=== PATIENT | female | born 1960 | race Caucasian/White ===

== ENCOUNTER 2017-10-30 23:00 | Emergency (ER) | payer MEDICAID ==
[~2017-10-30] VITALS: Ht 157.5 cm; Wt 62.6 kg
[~2017-10-30 23:00] MED LIST: AMITR PO; GABA-339 PO; HYDR12.527; LEVO75TA6 PO; PANT40TA2 PO; PRO10T; SUCR1SUS10 PO; TAMO20TA5 OR; TOPI50TA53 PO
[2017-10-30 23:24] VITALS: BP 151/99
== END 2017-10-31 07:05 | disposition left against medical advice (07) ==
LOC: ER 23:00
DX: K64.9 Unspecified hemorrhoids (principal); Z53.21 Procedure and treatment not carried out due to patient leaving prior to being seen by health care provider

== ENCOUNTER 2018-01-17 10:10 | Emergency (ER) | payer MEDICAID ==
[~2018-01-17] VITALS: Ht 157.5 cm; Wt 61.2 kg
[2018-01-17 11:21] VITALS: BP 138/87
[2018-01-17] MEDS ORDERED: KETOROLAC TROMETH 30 MG/ML 1ML VIAL IM ONE (11:30)
== END 2018-01-17 13:08 | disposition home or self-care (01) ==
LOC: ER 10:10
DX: S20.211A Contusion of right front wall of thorax, initial encounter (principal); E07.9 Disorder of thyroid, unspecified; F17.210 Nicotine dependence, cigarettes, uncomplicated; Z90.710 Acquired absence of both cervix and uterus; Z90.49 Acquired absence of other specified parts of digestive tract; Z88.1 Allergy status to other antibiotic agents; Z88.8 Allergy status to other drugs, medicaments and biological substances; Z98.51 Tubal ligation status; Z79.899 Other long term (current) drug therapy; W06.XXXA Fall from bed, initial encounter; Y93.89 Activity, other specified; Y99.8 Other external cause status; Y92.89 Other specified places as the place of occurrence of the external cause
CPT/HCPCS: 71101; 96372; 99284; J1885

== ENCOUNTER 2018-02-07 03:55 | Emergency (ER) | payer MEDICAID ==
[~2018-02-07] VITALS: Ht 165.1 cm; Wt 65.8 kg
[2018-02-07 06:38] LABS: Basophils # (auto) 0 uL; Basophils % (auto) 0.5 % (0.0-2.0); Eosinophils # (auto) 0.3 uL; Eosinophils % (auto) 3.4 % (0.0-7.0); Hemoglobin 13.9 g/dL (12.2-16.2); Lymphocytes # (auto) 2.3 uL; Lymphocytes % (auto) 30.4 % (10.0-50.0); Mean Corpuscular Hemoglobin 30.4 pg (28.0-32.0); Mean Corpuscular Hgb Conc. 33.1 g/dL (32.0-36.0); Mean Corpuscular Volume 91.7 fL (80.0-100.0); Monocytes # (auto) 0.5 uL; Monocytes % (auto) 7.2 % (0.0-12.0); Neutrophils # (auto) 4.4 uL; Neutrophils % (auto) 58.5 % (37.0-80.0); Nucleated Red Blood Cells % 0.1 %; Platelet Count (auto) 219 10^3/uL (140-450); Red Blood Cells 4.58 10^6/uL (4.0-5.20); Red Cell Distribution Width 14.2 % (11.8-14.3); White Blood Cell 7.5 10^3/uL (4.4-10.8)
[2018-02-07 06:51] LABS: Albumin 3.7 g/dL (3.4-5.0); BUN/Creatinine Ratio 36.3; Bilirubin, Total 0.2 mg/dL (0.2-1.0); Calcium 9.1 mg/dL (8.5-10.1); Potassium 3.8 mmol/L (3.5-5.1); Total Protein 7.4 g/dL (6.4-8.2)
[2018-02-07] MEDS ORDERED: ALUM & MAG HYDROX-SIMETH LIQ(MAALOX) 30 ML PO ONE (07:15)
[2018-02-07] MEDS ORDERED: LIDOCAINE VISCOUS 2% 15ML UD PO ONE (07:15)
[2018-02-07] MEDS ORDERED: DONNATAL 5ml ORAL Elix (BELLADONNA ALK-PHENOBARB) PO ONE (07:15)
[2018-02-07 07:42] VITALS: BP 134/69
[2018-02-07 07:59] LABS: Urine Bacteria FEW /hpf (None Seen); Urine Blood Negative /uL (Negative); Urine Mucus FEW (None Seen); Urine Specific Gravity 1.019 (1.001-1.035); Urine WBC 6 /hpf (0 - 5)
== END 2018-02-07 08:16 | disposition home or self-care (01) ==
LOC: EDBD 03:55 → ER 03:55
DX: K44.9 Diaphragmatic hernia without obstruction or gangrene (principal); Z88.2 Allergy status to sulfonamides
CPT/HCPCS: 36415; 74176; 80053; 81001; 82150; 83690; 85025; 93005

== ENCOUNTER 2021-02-24 09:31 | Inpatient (IN) | payer MEDICAID ==
[~2021-02-24] VITALS: Ht 157.5 cm; Wt 62.7 kg
[~2021-02-24 09:31] MED LIST changes: +AMIT1TAB PO; -AMITR PO; -HYDR12.527; +HYDR12.55; -PRO10T; +PROC10TA2; -TAMO20TA5 OR; +TAMO20TA9 OR
[2021-02-24] MEDS ORDERED: SODIUM CHLORIDE 0.9% 1,000 ML IV ONE ×2 (10:00)
[2021-02-24] MEDS ORDERED: PROCHLORPERAZINE EDISYLATE 5 MG/ML 2ML VIAL IV ONE (10:00)
[2021-02-24] MEDS ORDERED: ONDANSETRON HCL 4 MG/2 ML VIAL ONE (11:01)
[2021-02-24] MEDS ORDERED: KETOROLAC TROMETH 30 MG/ML 1ML VIAL ONE (11:01)
[2021-02-24 11:05] LABS: Basophils # (auto) 0 10 ^3/uL (0-0.2); Basophils % (auto) 0.3 % (0.0-2.0); Eosinophils # (auto) 0.1 10 ^3/uL (0-0.8); Eosinophils % (auto) 1.4 % (0.0-7.0); Hematocrit 41.3 % (36.0-46.0); Lymphocytes # (auto) 1.2 10 ^3/uL (0.4-5.4); Lymphocytes % (auto) 17.7 % (10.0-50.0); Mean Corpuscular Volume 94.1 fL (80.0-100.0); Monocytes # (auto) 0.5 10 ^3/uL (0-1.3); Monocytes % (auto) 7.5 % (0.0-12.0); Neutrophils % (auto) 73.1 % (37.0-80.0); Red Blood Cells 4.39 10^6/uL (4.0-5.20); White Blood Cell 6.9 10^3/uL (4.4-10.8)
[2021-02-24] MEDS ORDERED: KETOROLAC TROMETH 30 MG/ML 1ML VIAL IV ONE (11:15)
[2021-02-24] MEDS ORDERED: ONDANSETRON HCL 4 MG/2 ML VIAL IV ONE ×2 (11:15→13:45)
[2021-02-24 11:17] LABS: Albumin 3.9 g/dL (3.4-5.0); Anion Gap 10 (5-15); Blood Urea Nitrogen 28 mg/dL (7-18); Calcium 8.7 mg/dL (8.5-10.1); Carbon Dioxide 22 mmol/L (21-32); Chloride 110 mmol/L (98-107); Glucose 84 mg/dL (74-106); Potassium 3.3 mmol/L (3.5-5.1); Sodium 142 mmol/L (136-145)
[2021-02-24 11:23] LABS: Alanine Aminotransferase 22 U/L (13-56); Alkaline Phosphatase 54 U/L (45-117); Aspartate Aminotransferase 20 U/L (15-37); BUN/Creatinine Ratio 32.9; Bilirubin, Total 0.3 mg/dL (0.2-1.0); GFR African American 88 mL/min; GFR Non-African American 73 mL/min; Total Protein 7.1 g/dL (6.4-8.2)
[2021-02-24] MEDS ORDERED: POTASSIUM CHL 20MEQ/100ML 100 ML IV ONE (13:45)
[2021-02-24] MEDS ORDERED: metroNIDAZOLE 500MG/100ML 100 ML IV ONE (13:45)
[2021-02-24] MEDS ORDERED: cefTRIAXone 1GM/50ML D5W 50 ML IV ONE (13:45)
[2021-02-24] MEDS ORDERED: MORPHINE SULFATE 4 MG/ML SYR/VIAL IV ONE (13:45)
[2021-02-24] MEDS ORDERED: ONDANSETRON HCL 4 MG/2 ML VIAL IV PRN (14:00)
[2021-02-24] MEDS ORDERED: MORPHINE SULF INJ 2 MG/ML SYRINGE 1ML IV PRN (14:00)
[2021-02-24] MEDS ORDERED: NITROGLYCERIN 0.4 MG SL TAB SL PRN (14:00)
[2021-02-24] MEDS ORDERED: metroNIDAZOLE 500MG/100ML 100 ML IV SCH (14:00)
[2021-02-24] MEDS: SOD CHL 0.9%/ KCL 20MEQ 1,000 ML IV SCH (15:05)
[2021-02-24 15:39] LABS: Urine Bacteria NONE SEEN /hpf (None Seen); Urine Blood Negative /uL (Negative); Urine Budding Yeast FEW /hpf (None Seen); Urine Mucus FEW (None Seen); Urine Specific Gravity 1.019 (1.001-1.035); Urine WBC 5 /hpf (0 - 5)
[2021-02-24 15:50] LABS: Alcohol, Urine < 3.0 mg/dL (0-10); Amphetamine Screen, Urine NEGATIVE (NEGATIVE); Barbiturate Scree,Urine NEGATIVE (NEGATIVE); Benzodiazephine Screen, Urine NEGATIVE (NEGATIVE); Cannabinoid Screen, Urine NEGATIVE (NEGATIVE); Cocaine Screen, Urine NEGATIVE (NEGATIVE); Opiate Scree,Urine POSITIVE (NEGATIVE)
[2021-02-24 15:57] LABS: Phencyclidine Screen, Urine NEGATIVE (NEGATIVE)
[2021-02-24] MEDS: MORPHINE SULF INJ 2 MG/ML SYRINGE 1ML IV PRN ×2 (17:36→18:56)
[2021-02-24] MEDS: ONDANSETRON HCL 4 MG/2 ML VIAL IV PRN (19:38)
[2021-02-24 22:00] VITALS: BP 134/72
[2021-02-24 22:10] VITALS: BP 134/72
[2021-02-24] MEDS ORDERED: SIMV-13 PO (22:34)
[2021-02-24] MEDS ORDERED: ROPI0.254 PO (22:34)
[2021-02-24] MEDS ORDERED: METH2.5T PO (22:34)
[2021-02-24] MEDS ORDERED: ALEN70TA74 PO (22:34)
[2021-02-24] MEDS ORDERED: FOLI1TAB6 PO (22:34)
[2021-02-24] MEDS: PANTOPRAZOLE 40 MG/10 ML VIAL INJ IV SCH (22:34)
[2021-02-24] MEDS ORDERED: CHOL20007 OR (22:34)
[2021-02-24] MEDS ORDERED: TIZA4CAP PO (22:34)
[2021-02-24] MEDS ORDERED: DICY10CA PO (22:34)
[2021-02-24] MEDS ORDERED: PERCOT PO (22:34)
[2021-02-24] MEDS ORDERED: TRAZ100T3 PO (22:34)
[2021-02-24] MEDS ORDERED: TOPI25TA84 PO (22:34)
[2021-02-24] MEDS ORDERED: RABE20TA19 PO (22:34)
[2021-02-24] MEDS ORDERED: BUPR100T14 PO (22:34)
[2021-02-24] MEDS ORDERED: GABA100C9 PO (22:34)
[2021-02-24] MEDS ORDERED: ANAS1TAB7 PO (22:34)
[2021-02-24] MEDS: metroNIDAZOLE 500MG/100ML 100 ML IV SCH (22:35)
[2021-02-24] MEDS: TOPIRAMATE 25 MG TAB PO SCH (22:35)
[2021-02-25] MEDS: MORPHINE SULF INJ 2 MG/ML SYRINGE 1ML IV PRN (00:05)
[2021-02-25] MEDS: ONDANSETRON HCL 4 MG/2 ML VIAL IV PRN (02:55)
[2021-02-25 05:00] VITALS: BP 99/61
[2021-02-25] MEDS: metroNIDAZOLE 500MG/100ML 100 ML IV SCH ×3 (06:43→21:09)
[2021-02-25] MEDS: LEVOTHYROXINE SODIUM 50 MCG TAB PO SCH (06:44)
[2021-02-25 09:00] VITALS: BP 108/60
[2021-02-25] MEDS: PANTOPRAZOLE 40 MG/10 ML VIAL INJ IV SCH ×2 (09:08→21:10)
[2021-02-25] MEDS: cefTRIAXone 1GM/50ML D5W 50 ML IV SCH (09:08)
[2021-02-25] MEDS: AMITRIPTYLINE HCL 10 MG TAB PO SCH (09:09)
[2021-02-25] MEDS: TOPIRAMATE 25 MG TAB PO SCH ×2 (09:09→21:11)
[2021-02-25] MEDS: SOD CHL 0.9%/ KCL 20MEQ 1,000 ML IV SCH ×3 (10:00→21:00)
[2021-02-25 13:00] VITALS: BP 103/56
[2021-02-25] MEDS ORDERED: MORPHINE SULF INJ 2 MG/ML SYRINGE 1ML IV PRN (13:00)
[2021-02-25] MEDS: OXYCODONE W/ ACETAMINOPHEN 5/325MG TABLET PO PRN ×2 (14:38→21:16)
[2021-02-25 16:57] VITALS: BP 110/61
[2021-02-25 22:00] VITALS: BP 120/73
[2021-02-26 05:00] VITALS: BP 126/69
[2021-02-26] MEDS: metroNIDAZOLE 500MG/100ML 100 ML IV SCH ×3 (05:42→22:31)
[2021-02-26] MEDS: SOD CHL 0.9%/ KCL 20MEQ 1,000 ML IV SCH ×2 (06:00→16:00)
[2021-02-26] MEDS: LEVOTHYROXINE SODIUM 50 MCG TAB PO SCH (06:20)
[2021-02-26 09:00] VITALS: BP 116/62
[2021-02-26] MEDS: TOPIRAMATE 25 MG TAB PO SCH ×2 (09:59→22:32)
[2021-02-26] MEDS: AMITRIPTYLINE HCL 10 MG TAB PO SCH (09:59)
[2021-02-26 10:21] LABS: Basophils # (auto) 0 10 ^3/uL (0-0.2); Basophils % (auto) 0.9 % (0.0-2.0); Eosinophils # (auto) 0.2 10 ^3/uL (0-0.8); Eosinophils % (auto) 3.3 % (0.0-7.0); Hematocrit 40.1 % (36.0-46.0); Hemoglobin 13.6 g/dL (12.2-16.2); Lymphocytes # (auto) 1.4 10 ^3/uL (0.4-5.4); Lymphocytes % (auto) 28.8 % (10.0-50.0); Mean Corpuscular Hemoglobin 32.1 pg (28.0-32.0); Mean Corpuscular Hgb Conc. 33.8 g/dL (32.0-36.0); Mean Corpuscular Volume 94.9 fL (80.0-100.0); Monocytes # (auto) 0.5 10 ^3/uL (0-1.3); Neutrophils # (auto) 2.8 10 ^3/uL (1.6-8.6); Nucleated Red Blood Cells % 0.1 %; Red Blood Cells 4.23 10^6/uL (4.0-5.20); Red Cell Distribution Width 14.8 % (11.8-14.3); White Blood Cell 4.9 10^3/uL (4.4-10.8)
[2021-02-26 10:39] LABS: Calcium 8.4 mg/dL (8.5-10.1); Magnesium 2.2 mg/dL (1.6-2.6); Potassium 3.6 mmol/L (3.5-5.1)
[2021-02-26 13:00] VITALS: BP 136/70
[2021-02-26] MEDS: PANTOPRAZOLE 40 MG/10 ML VIAL INJ IV SCH ×2 (15:00→22:31)
[2021-02-26] MEDS: cefTRIAXone 1GM/50ML D5W 50 ML IV SCH (15:01)
[2021-02-26] MEDS: levoFLOXacin 500MG 100 ML IV SCH (16:12)
[2021-02-26 17:00] VITALS: BP 143/63
[2021-02-26] MEDS ORDERED: ROPI0.5T18 PO (20:59)
[2021-02-26] MEDS ORDERED: ALENDRONATE SODIUM 10 MG TAB PO SCH (21:15)
[2021-02-26] MEDS ORDERED: METHOTREXATE 2.5 MG TAB PO SCH (21:15)
[2021-02-26] MEDS ORDERED: PROCHLORPERAZINE MALEATE 10 MG TAB PO PRN (21:30)
[2021-02-26] MEDS ORDERED: GABAPENTIN 100 MG CAP PO SCH (22:00)
[2021-02-26 22:19] VITALS: BP 140/73
[2021-02-26] MEDS: DOCUSATE SOD 100 MG CAP PO SCH (22:31)
[2021-02-26] MEDS: SUCRALFATE 1 GM/10 ML ORAL SUSP PO SCH (22:31)
[2021-02-26] MEDS: traZODone HCL 50 MG TAB PO SCH (22:34)
[2021-02-26] MEDS: GABAPENTIN 300 MG CAP PO SCH (22:35)
[2021-02-26] MEDS ORDERED: DICYCLOMINE HCL 10 MG CAP PO PRN (22:45)
[2021-02-27] MEDS: SOD CHL 0.9%/ KCL 20MEQ 1,000 ML IV SCH ×2 (02:01→12:00)
[2021-02-27] MEDS ORDERED: METH2.5T PO (02:13)
[2021-02-27] MEDS ORDERED: ALEN70TA74 PO (02:13)
[2021-02-27 05:30] VITALS: BP 130/58
[2021-02-27] MEDS: metroNIDAZOLE 500MG/100ML 100 ML IV SCH ×2 (06:19→14:00)
[2021-02-27] MEDS: SUCRALFATE 1 GM/10 ML ORAL SUSP PO SCH ×4 (06:19→22:00)
[2021-02-27] MEDS: LEVOTHYROXINE SODIUM 50 MCG TAB PO SCH (06:20)
[2021-02-27 09:03] VITALS: BP 120/66
[2021-02-27] MEDS: AMITRIPTYLINE HCL 10 MG TAB PO SCH (10:00)
[2021-02-27] MEDS ORDERED: ZANAFLEX PO SCH (10:00)
[2021-02-27] MEDS ORDERED: PANTOPRAZOLE 40 MG TAB PO SCH (10:00)
[2021-02-27] MEDS ORDERED: ANASTROZOLE 1 MG PO SCH (10:00)
[2021-02-27] MEDS ORDERED: HCTZ 25 MG TAB PO SCH (10:00)
[2021-02-27] MEDS: DOCUSATE SOD 100 MG CAP PO SCH ×2 (10:00→22:34)
[2021-02-27] MEDS ORDERED: buPROPion HCL 75 MG TAB PO SCH (10:00)
[2021-02-27] MEDS ORDERED: CHOLECALCIFEROL (VITD3) 2,000 UNIT CAP/TAB PO SCH (10:00)
[2021-02-27] MEDS ORDERED: ROPINIROLE 0.5 MG PO SCH (10:00)
[2021-02-27] MEDS: traZODone HCL 50 MG TAB PO SCH (10:00)
[2021-02-27] MEDS ORDERED: FOLIC ACID 1 MG TAB PO SCH (10:00)
[2021-02-27] MEDS: TOPIRAMATE 25 MG TAB PO SCH (10:02)
[2021-02-27] MEDS: GABAPENTIN 300 MG CAP PO SCH ×2 (10:12→22:35)
[2021-02-27] MEDS: levoFLOXacin 500MG 100 ML IV SCH (10:13)
[2021-02-27 13:00] VITALS: BP 130/74
[2021-02-27 13:23] LABS: Basophils # (auto) 0 10 ^3/uL (0-0.2); Basophils % (auto) 0.4 % (0.0-2.0); Eosinophils # (auto) 0.1 10 ^3/uL (0-0.8); Eosinophils % (auto) 2.3 % (0.0-7.0); Hematocrit 40.5 % (36.0-46.0); Hemoglobin 14.1 g/dL (12.2-16.2); Lymphocytes # (auto) 1.9 10 ^3/uL (0.4-5.4); Lymphocytes % (auto) 31.5 % (10.0-50.0); Mean Corpuscular Hemoglobin 32.5 pg (28.0-32.0); Mean Corpuscular Hgb Conc. 34.9 g/dL (32.0-36.0); Mean Corpuscular Volume 93.2 fL (80.0-100.0); Monocytes # (auto) 0.7 10 ^3/uL (0-1.3); Monocytes % (auto) 10.9 % (0.0-12.0); Neutrophils # (auto) 3.4 10 ^3/uL (1.6-8.6); Neutrophils % (auto) 54.9 % (37.0-80.0); Nucleated Red Blood Cells % 0.1 %; Red Blood Cells 4.35 10^6/uL (4.0-5.20); Red Cell Distribution Width 14.9 % (11.8-14.3); White Blood Cell 6.1 10^3/uL (4.4-10.8)
[2021-02-27 13:39] LABS: BUN/Creatinine Ratio 7.9; Potassium 3.1 mmol/L (3.5-5.1)
[2021-02-27 17:38] VITALS: BP 123/71
[2021-02-27 21:48] VITALS: BP 129/68
[2021-02-27] MEDS ORDERED: ATORVASTATIN 20 MG TAB PO SCH (22:00)
[2021-03-01] MEDS ORDERED: ALENDRONATE SODIUM 10 MG TAB PO SCH (07:00)
[2021-03-03] MEDS ORDERED: METHOTREXATE 2.5 MG TAB PO SCH (10:00)
== END 2021-02-27 22:10 | disposition home or self-care (01) | DRG 249 ==
LOC: EDBD 09:31 → EDUNIT# 09:31 → ER 09:31 → TELE 14:06 → TELE-WESTW 20:29
PROVIDERS: ADMIT Nurse Practitioner Acute Care; ATTEND Internal Medicine
DX: K52.9 Noninfective gastroenteritis and colitis, unspecified (principal); G62.9 Polyneuropathy, unspecified; E03.9 Hypothyroidism, unspecified; E87.6 Hypokalemia; K21.9 Gastro-esophageal reflux disease without esophagitis; M79.7 Fibromyalgia; F17.210 Nicotine dependence, cigarettes, uncomplicated; Z79.899 Other long term (current) drug therapy; Z82.49 Family history of ischemic heart disease and other diseases of the circulatory system; Z85.3 Personal history of malignant neoplasm of breast; Z90.710 Acquired absence of both cervix and uterus; Z92.21 Personal history of antineoplastic chemotherapy; Z92.3 Personal history of irradiation; F41.9 Anxiety disorder, unspecified; N39.0 Urinary tract infection, site not specified; Z20.822 Contact with and (suspected) exposure to COVID-19; Z88.2 Allergy status to sulfonamides; Z88.8 Allergy status to other drugs, medicaments and biological substances
CPT/HCPCS: 36415; 74176; 80048; 80053; 80307; 81001; 83605; 83735; 84443; 84484; 85025; 85049; 87040; 87426; 87493; 93005; 93306; 96361; 96374; 96375; C9113; G0378; J0696; J1885; J1956; J2405; J3480; J3490

== ENCOUNTER 2021-03-05 13:12 | Inpatient (IN) | payer MEDICAID ==
[~2021-03-05] VITALS: Ht 165.1 cm; Wt 63.7 kg
[~2021-03-05 13:12] MED LIST changes: +ALEN70TA74 PO; +ANAS1TAB7 PO; +BUPR100T14 PO; +CHOL20007 OR; +DICY10CA PO; +FOLI1TAB6 PO; -GABA-339 PO; +GABA100C9 PO; +METH2.5T PO; +PERCOT PO; +RABE20TA19 PO; +ROPI0.5T18 PO; +SIMV-13 PO; -TAMO20TA9 OR; +TIZA4CAP PO; +TOPI25TA84 PO; +TRAZ100T3 PO
[2021-03-05] MEDS ORDERED: SODIUM CHLORIDE 0.9% 1,000 ML IV ONE ×3 (13:30→16:00)
[2021-03-05] MEDS ORDERED: cefTRIAXone 1GM/50ML D5W 50 ML IV ONE (13:30)
[2021-03-05] MEDS ORDERED: metroNIDAZOLE 500MG/100ML 100 ML IV ONE (13:30)
[2021-03-05 15:35] LABS: Urine Bacteria NONE SEEN /hpf (None Seen); Urine Blood Negative /uL (Negative); Urine Mucus FEW (None Seen); Urine Specific Gravity 1.018 (1.001-1.035); Urine WBC 2 /hpf (0 - 5)
[2021-03-05] MEDS ORDERED: ONDANSETRON HCL 4 MG/2 ML VIAL IV PRN ×2 (16:00→22:45)
[2021-03-05] MEDS ORDERED: NITROGLYCERIN 0.4 MG SL TAB SL PRN ×2 (16:00→22:45)
[2021-03-05] MEDS ORDERED: SODIUM CHLORIDE 0.9% 1,000 ML IV SCH (16:00)
[2021-03-05] MEDS ORDERED: MORPHINE SULF INJ 2 MG/ML SYRINGE 1ML IV PRN ×3 (16:00→22:45)
[2021-03-05 16:26] LABS: Basophils # (auto) 0 10 ^3/uL (0-0.2); Basophils % (auto) 0.5 % (0.0-2.0); Eosinophils # (auto) 0.1 10 ^3/uL (0-0.8); Eosinophils % (auto) 2.3 % (0.0-7.0); Hematocrit 35.2 % (36.0-46.0); Lymphocytes # (auto) 1.4 10 ^3/uL (0.4-5.4); Lymphocytes % (auto) 33.2 % (10.0-50.0); Mean Corpuscular Hemoglobin 32.2 pg (28.0-32.0); Mean Corpuscular Volume 94.6 fL (80.0-100.0); Monocytes # (auto) 0.3 10 ^3/uL (0-1.3); Monocytes % (auto) 6.3 % (0.0-12.0); Neutrophils # (auto) 2.5 10 ^3/uL (1.6-8.6); Neutrophils % (auto) 57.7 % (37.0-80.0); Nucleated Red Blood Cells % 0.2 %; Red Blood Cells 3.72 10^6/uL (4.0-5.20); Red Cell Distribution Width 15.1 % (11.8-14.3); White Blood Cell 4.3 10^3/uL (4.4-10.8)
[2021-03-05 16:47] LABS: Alanine Aminotransferase 26 U/L (13-56); Albumin 3.2 g/dL (3.4-5.0); Anion Gap 5 (5-15); Aspartate Aminotransferase 28 U/L (15-37); BUN/Creatinine Ratio 29.9; Blood Urea Nitrogen 23 mg/dL (7-18); Calcium 7.9 mg/dL (8.5-10.1); Carbon Dioxide 22 mmol/L (21-32); Chloride 114 mmol/L (98-107); GFR African American 99 mL/min; GFR Non-African American 82 mL/min; Glucose 90 mg/dL (74-106); Potassium 3.9 mmol/L (3.5-5.1); Sodium 141 mmol/L (136-145)
[2021-03-05 16:52] LABS: Alkaline Phosphatase 45 U/L (45-117); Bilirubin, Total 0.2 mg/dL (0.2-1.0); Total Protein 6.3 g/dL (6.4-8.2)
[2021-03-05 22:00] VITALS: BP 142/78
[2021-03-05] MEDS ORDERED: GABAPENTIN 100 MG CAP PO SCH (22:00)
[2021-03-05] MEDS ORDERED: PANTOPRAZOLE 40 MG/10 ML VIAL INJ IV SCH (22:00)
[2021-03-05] MEDS ORDERED: SUCRALFATE 1 GM/10 ML ORAL SUSP PO SCH (22:00)
[2021-03-05] MEDS: PRAMIPEXOLE DIHYDROCHLORIDE MO 0.25 MG TAB PO SCH (22:50)
[2021-03-05] MEDS: TOPIRAMATE 100 MG TAB PO SCH (22:50)
[2021-03-05] MEDS: GABAPENTIN 300 MG CAP PO SCH (22:50)
[2021-03-05] MEDS: PANTOPRAZOLE 40 MG/10 ML VIAL INJ IV SCH (22:51)
[2021-03-05] MEDS: SUCRALFATE 1 GM/10 ML ORAL SUSP PO SCH (22:51)
[2021-03-05] MEDS: SODIUM CHLORIDE 0.9% 1,000 ML IV SCH (22:51)
[2021-03-05] MEDS: MORPHINE SULF INJ 2 MG/ML SYRINGE 1ML IV PRN (23:08)
[2021-03-06] MEDS: MORPHINE SULF INJ 2 MG/ML SYRINGE 1ML IV PRN ×2 (04:23→17:12)
[2021-03-06 05:00] VITALS: BP 106/55
[2021-03-06] MEDS ORDERED: SUCRALFATE 1 GM/10 ML ORAL SUSP PO SCH (07:00)
[2021-03-06] MEDS ORDERED: buPROPion HCL 75 MG TAB PO SCH (07:00)
[2021-03-06] MEDS: SODIUM CHLORIDE 0.9% 1,000 ML IV SCH ×3 (07:01→22:17)
[2021-03-06] MEDS: SUCRALFATE 1 GM/10 ML ORAL SUSP PO SCH ×4 (07:02→21:02)
[2021-03-06] MEDS: buPROPion HCL 75 MG TAB PO SCH ×2 (07:02→18:23)
[2021-03-06] MEDS ORDERED: DICY10CA12 PO (08:08)
[2021-03-06] MEDS ORDERED: PERCOT PO (08:08)
[2021-03-06] MEDS ORDERED: RABE20TA19 PO (08:08)
[2021-03-06] MEDS ORDERED: METH2.5T PO (08:08)
[2021-03-06] MEDS ORDERED: TIZA4CAP PO (08:08)
[2021-03-06] MEDS ORDERED: TOPI25CA5 PO (08:08)
[2021-03-06] MEDS ORDERED: TRAZ100T3 PO (08:08)
[2021-03-06] MEDS ORDERED: ROPI0.254 PO (08:08)
[2021-03-06] MEDS ORDERED: LORazepam 2MG/ML-1ML VIAL IV PRN (08:45)
[2021-03-06 09:00] VITALS: BP 144/76
[2021-03-06] MEDS ORDERED: PANTOPRAZOLE 40 MG/10 ML VIAL INJ IV SCH (10:00)
[2021-03-06] MEDS: TOPIRAMATE 100 MG TAB PO SCH ×2 (10:02→21:02)
[2021-03-06] MEDS: GABAPENTIN 300 MG CAP PO SCH ×2 (10:02→21:02)
[2021-03-06] MEDS: PANTOPRAZOLE 40 MG/10 ML VIAL INJ IV SCH ×2 (10:02→21:02)
[2021-03-06 16:50] LABS: INR 1.18 (0.9-1.15); Partial Thromboplastin Time 23.6 sec (23.0-31.2)
[2021-03-06 17:19] VITALS: BP 156/72
[2021-03-06] MEDS: PRAMIPEXOLE DIHYDROCHLORIDE MO 0.25 MG TAB PO SCH (21:02)
[2021-03-06 22:03] VITALS: BP 129/59
[2021-03-06] MEDS ORDERED: HYDROcodone-ACET 5/325MG TAB PO PRN (22:15)
[2021-03-07] MEDS: SODIUM CHLORIDE 0.9% 1,000 ML IV SCH ×3 (01:13→15:05)
[2021-03-07 05:00] VITALS: BP 157/66
[2021-03-07] MEDS: MORPHINE SULF INJ 2 MG/ML SYRINGE 1ML IV PRN (05:04)
[2021-03-07] MEDS: buPROPion HCL 75 MG TAB PO SCH ×2 (07:00→18:32)
[2021-03-07] MEDS: SUCRALFATE 1 GM/10 ML ORAL SUSP PO SCH ×4 (07:00→21:12)
[2021-03-07] MEDS ORDERED: MIDAZOLAM HCL 5 MG/ML-1ML VIAL ONE (08:45)
[2021-03-07] MEDS ORDERED: diphenhdrAMINE HCL 50 MG/1 ML VL ONE (08:45)
[2021-03-07] MEDS ORDERED: LIDOCAINE VISCOUS 2% 15ML UD ONE (08:45)
[2021-03-07] MEDS ORDERED: fentaNYL CITRATE 100 MCG/2 ML VL ONE (08:46)
[2021-03-07] MEDS ORDERED: SODIUM CHLORIDE LOCK 10 ML ONE (08:46)
[2021-03-07] MEDS: cefTRIAXone 1GM/50ML D5W 50 ML IV SCH (08:58)
[2021-03-07] MEDS: PANTOPRAZOLE 40 MG/10 ML VIAL INJ IV SCH ×2 (08:59→21:12)
[2021-03-07 09:00] VITALS: BP 141/73
[2021-03-07 09:53] LABS: Basophils # (auto) 0 10 ^3/uL (0-0.2); Basophils % (auto) 0.4 % (0.0-2.0); Eosinophils # (auto) 0.2 10 ^3/uL (0-0.8); Eosinophils % (auto) 4.1 % (0.0-7.0); Hemoglobin 12.5 g/dL (12.2-16.2); Lymphocytes # (auto) 2.3 10 ^3/uL (0.4-5.4); Mean Corpuscular Hemoglobin 31.3 pg (28.0-32.0); Mean Corpuscular Hgb Conc. 32.8 g/dL (32.0-36.0); Mean Corpuscular Volume 95.4 fL (80.0-100.0); Monocytes # (auto) 0.4 10 ^3/uL (0-1.3); Monocytes % (auto) 6.7 % (0.0-12.0); Neutrophils # (auto) 2.5 10 ^3/uL (1.6-8.6); Neutrophils % (auto) 45.8 % (37.0-80.0); Nucleated Red Blood Cells % 0.1 %; Red Blood Cells 3.98 10^6/uL (4.0-5.20); White Blood Cell 5.5 10^3/uL (4.4-10.8)
[2021-03-07] MEDS: TOPIRAMATE 100 MG TAB PO SCH ×2 (10:00→21:13)
[2021-03-07] MEDS: GABAPENTIN 300 MG CAP PO SCH ×2 (10:00→21:13)
[2021-03-07 10:05] LABS: Albumin 3.1 g/dL (3.4-5.0); Calcium 7.9 mg/dL (8.5-10.1); Magnesium 2.1 mg/dL (1.6-2.6); Potassium 3.6 mmol/L (3.5-5.1)
[2021-03-07 10:11] LABS: BUN/Creatinine Ratio 18.3; Bilirubin, Total 0.2 mg/dL (0.2-1.0); Phosphorus 2.6 mg/dL (2.5-4.90)
[2021-03-07] MEDS ORDERED: GADOTERATE MEG 10 MMOL/20ml INJ (0.5MMOL/ml) IV ONE (10:23)
[2021-03-07 13:00] VITALS: BP 145/81
[2021-03-07 18:01] VITALS: BP 125/53
[2021-03-07] MEDS: PRAMIPEXOLE DIHYDROCHLORIDE MO 0.25 MG TAB PO SCH (21:13)
[2021-03-07 22:00] VITALS: BP 131/66
[2021-03-08 05:00] VITALS: BP 150/71
[2021-03-08] MEDS: buPROPion HCL 75 MG TAB PO SCH (06:36)
[2021-03-08] MEDS: SUCRALFATE 1 GM/10 ML ORAL SUSP PO SCH ×3 (06:36→17:00)
[2021-03-08] MEDS: MORPHINE SULF INJ 2 MG/ML SYRINGE 1ML IV PRN (06:36)
[2021-03-08] MEDS: SODIUM CHLORIDE 0.9% 1,000 ML IV SCH ×2 (06:45→08:48)
[2021-03-08] MEDS: cefTRIAXone 1GM/50ML D5W 50 ML IV SCH (08:43)
[2021-03-08] MEDS: PANTOPRAZOLE 40 MG/10 ML VIAL INJ IV SCH (08:43)
[2021-03-08] MEDS: TOPIRAMATE 100 MG TAB PO SCH (08:44)
[2021-03-08] MEDS: GABAPENTIN 300 MG CAP PO SCH (08:44)
[2021-03-08 09:00] VITALS: BP 152/63
[2021-03-08] MEDS ORDERED: traZODone HCL 50 MG TAB PO PRN (09:30)
[2021-03-08 12:37] VITALS: BP 146/68
== END 2021-03-08 17:10 | disposition home or self-care (01) | DRG 201 ==
LOC: ER 13:12 → EDBD 13:12 → TELE-WESTW 16:17 → ER 18:10 → TELE-WESTW 03-07 15:10
PROVIDERS: ADMIT Internal Medicine; ATTEND Internal Medicine
PROC: 0DB68ZX Excision of Stomach, Via Natural or Artificial Opening Endoscopic, Diagnostic (ICD-10-PCS; principal; 2021-03-07 09:59)
DX: R00.1 Bradycardia, unspecified (principal); R13.10 Dysphagia, unspecified; E78.5 Hyperlipidemia, unspecified; K52.9 Noninfective gastroenteritis and colitis, unspecified; J44.9 Chronic obstructive pulmonary disease, unspecified; E86.0 Dehydration; G25.81 Restless legs syndrome; G47.00 Insomnia, unspecified; F17.210 Nicotine dependence, cigarettes, uncomplicated; F41.9 Anxiety disorder, unspecified; G43.009 Migraine without aura, not intractable, without status migrainosus; K29.70 Gastritis, unspecified, without bleeding; M81.0 Age-related osteoporosis without current pathological fracture; F43.10 Post-traumatic stress disorder, unspecified; K21.9 Gastro-esophageal reflux disease without esophagitis; Z20.822 Contact with and (suspected) exposure to COVID-19; G89.29 Other chronic pain; N39.0 Urinary tract infection, site not specified; Z82.49 Family history of ischemic heart disease and other diseases of the circulatory system; Z82.5 Family history of asthma and other chronic lower respiratory diseases; Z85.3 Personal history of malignant neoplasm of breast; Z87.11 Personal history of peptic ulcer disease; Z90.49 Acquired absence of other specified parts of digestive tract; Z90.710 Acquired absence of both cervix and uterus; Z92.21 Personal history of antineoplastic chemotherapy; Z92.3 Personal history of irradiation; Z88.2 Allergy status to sulfonamides; Z88.5 Allergy status to narcotic agent; Z98.51 Tubal ligation status
CPT/HCPCS: 36415; 43239; 70450; 70553; 71045; 74176; 80053; 81001; 82962; 83605; 83735; 84100; 84484; 85025; 85049; 85610; 85730; 86850; 86900; 86901; 87040; 87081; 87426; 93005; 95819; 96365; 96367; C9113; G0378; J0696; J2250; J3490

== ENCOUNTER 2021-06-11 12:53 | Inpatient (IN) | payer MEDICAID ==
[~2021-06-11] VITALS: Ht 162.6 cm; Wt 68.0 kg
[~2021-06-11 12:53] MED LIST changes: -AMIT1TAB PO; +BUPR-160 PO; -BUPR100T14 PO; -DICY10CA PO; +DICY10CA12 PO; -HYDR12.55; -PANT40TA2 PO; -PROC10TA2; +ROPI0.254 PO; -ROPI0.5T18 PO; -SUCR1SUS10 PO; +TOPI25CA5 PO; -TOPI50TA53 PO
[2021-06-11] MEDS ORDERED: MORPHINE SULFATE 4 MG/ML SYR/VIAL IV ONE (13:15)
[2021-06-11] MEDS ORDERED: ONDANSETRON HCL 4 MG/2 ML VIAL IV ONE (13:15)
[2021-06-11 15:09] LABS: Basophils # (auto) 0 10 ^3/uL (0-0.2); Basophils % (auto) 0.3 % (0.0-2.0); Eosinophils # (auto) 0.1 10 ^3/uL (0-0.8); Eosinophils % (auto) 1.4 % (0.0-7.0); Hematocrit 40.4 % (36.0-46.0); Hemoglobin 12.9 g/dL (12.2-16.2); Lymphocytes # (auto) 1.9 10 ^3/uL (0.4-5.4); Lymphocytes % (auto) 33.8 % (10.0-50.0); Mean Corpuscular Hemoglobin 30.2 pg (28.0-32.0); Mean Corpuscular Hgb Conc. 31.8 g/dL (32.0-36.0); Mean Corpuscular Volume 94.9 fL (80.0-100.0); Monocytes # (auto) 0.4 10 ^3/uL (0-1.3); Monocytes % (auto) 7.5 % (0.0-12.0); Neutrophils # (auto) 3.1 10 ^3/uL (1.6-8.6); Nucleated Red Blood Cells % 0.1 %; Red Blood Cells 4.26 10^6/uL (4.0-5.20); Red Cell Distribution Width 15.8 % (11.8-14.3); White Blood Cell 5.5 10^3/uL (4.4-10.8)
[2021-06-11 15:30] LABS: Albumin 3.5 g/dL (3.4-5.0); Anion Gap 7 (5-15); Blood Urea Nitrogen 26 mg/dL (7-18); Carbon Dioxide 19 mmol/L (21-32); Chloride 114 mmol/L (98-107); Glucose 80 mg/dL (74-106); Magnesium 2.3 mg/dL (1.6-2.6); Potassium 3.6 mmol/L (3.5-5.1); Sodium 140 mmol/L (136-145)
[2021-06-11 15:35] LABS: Alanine Aminotransferase 22 U/L (13-56); Alkaline Phosphatase 50 U/L (45-117); Aspartate Aminotransferase 18 U/L (15-37); BUN/Creatinine Ratio 31.3; Bilirubin, Total 0.2 mg/dL (0.2-1.0); GFR African American 90 mL/min; GFR Non-African American 75 mL/min; Total Protein 6.6 g/dL (6.4-8.2)
[2021-06-11] MEDS ORDERED: diazePAM 5 MG TAB PO ONE (18:15)
[2021-06-11] MEDS ORDERED: MORPHINE SULFATE INJECTION 2 MG/ML SYRG IV PRN (18:30)
[2021-06-11] MEDS ORDERED: NITROGLYCERIN 0.4 MG SL TAB SL ONE (18:30)
[2021-06-11] MEDS ORDERED: NITROGLYCERIN 0.4 MG SL TAB SL PRN (18:30)
[2021-06-11] MEDS ORDERED: DOCUSATE SOD 100 MG CAP PO PRN (18:30)
[2021-06-11] MEDS ORDERED: ONDANSETRON HCL 4 MG/2 ML VIAL IV PRN (18:30)
[2021-06-11] MEDS ORDERED: ACETAMINOPHEN 325 MG TAB PO PRN (18:30)
[2021-06-11] MEDS ORDERED: TEMAZEPAM 15 MG CAP PO PRN (18:30)
[2021-06-11 21:55] VITALS: BP 110/65
[2021-06-11 22:00] VITALS: BP 110/65
[2021-06-11] MEDS: MORPHINE SULFATE 4 MG/ML SYR/VIAL IV PRN (22:58)
[2021-06-12 05:00] VITALS: BP 100/59
[2021-06-12 05:51] LABS: Basophils # (auto) 0 10 ^3/uL (0-0.2); Basophils % (auto) 0.6 % (0.0-2.0); Eosinophils # (auto) 0.1 10 ^3/uL (0-0.8); Eosinophils % (auto) 2.2 % (0.0-7.0); Hematocrit 36.3 % (36.0-46.0); Hemoglobin 12.1 g/dL (12.2-16.2); Lymphocytes # (auto) 1.9 10 ^3/uL (0.4-5.4); Lymphocytes % (auto) 41.7 % (10.0-50.0); Mean Corpuscular Hgb Conc. 33.3 g/dL (32.0-36.0); Mean Corpuscular Volume 93.2 fL (80.0-100.0); Monocytes # (auto) 0.4 10 ^3/uL (0-1.3); Monocytes % (auto) 7.7 % (0.0-12.0); Neutrophils # (auto) 2.2 10 ^3/uL (1.6-8.6); Neutrophils % (auto) 47.8 % (37.0-80.0); Nucleated Red Blood Cells % 0.1 %; Red Cell Distribution Width 15.9 % (11.8-14.3); White Blood Cell 4.6 10^3/uL (4.4-10.8)
[2021-06-12 06:10] LABS: Calcium 8.4 mg/dL (8.5-10.1); Chloride 113 mmol/L (98-107); Potassium 3.9 mmol/L (3.5-5.1); Sodium 141 mmol/L (136-145)
[2021-06-12 06:18] LABS: Alanine Aminotransferase 20 U/L (13-56); Alkaline Phosphatase 45 U/L (45-117); Anion Gap 5 (5-15); Aspartate Aminotransferase 17 U/L (15-37); BUN/Creatinine Ratio 30.7; Bilirubin, Total 0.1 mg/dL (0.2-1.0); Blood Urea Nitrogen 31 mg/dL (7-18); Carbon Dioxide 23 mmol/L (21-32); Cholesterol 142 mg/dL (< 200); GFR African American 72 mL/min; GFR Non-African American 59 mL/min; Glucose 88 mg/dL (74-106); HDL Cholesterol 55 mg/dL (40-59); LDL Cholesterol 75 mg/dL (< 100); Triglycerides 110 mg/dL (< 150)
[2021-06-12] MEDS ORDERED: ADENOSINE 57 MG in GIVE UN-DILUTED 0 ML IV STA (08:52)
[2021-06-12 09:00] VITALS: BP 110/71
[2021-06-12] MEDS: ENOXAPARIN SOD 40 MG/0.4 ML SYRINGE SC SCH (10:51)
[2021-06-12] MEDS ORDERED: PANT1INJ3 PO (11:03)
[2021-06-12] MEDS ORDERED: ASPI-543 PO (11:03)
[2021-06-12 13:00] VITALS: BP 108/67
[2021-06-12 17:00] VITALS: BP 108/74
[2021-06-12] MEDS ORDERED: CALCIUM CARB 500 MG CHEW TAB PO PRN ×2 (21:45→22:15)
[2021-06-12 22:00] VITALS: BP 130/77
[2021-06-12] MEDS: MORPHINE SULFATE 4 MG/ML SYR/VIAL IV PRN (22:34)
[2021-06-13] MEDS: MORPHINE SULFATE 4 MG/ML SYR/VIAL IV PRN ×2 (03:14→22:52)
[2021-06-13 05:00] VITALS: BP 105/64
[2021-06-13] MEDS: LEVOTHYROXINE SODIUM 25 MCG TAB PO SCH (06:22)
[2021-06-13] MEDS ORDERED: SIMV-13 PO (07:16)
[2021-06-13] MEDS ORDERED: ROPI0.2533 PO (07:16)
[2021-06-13] MEDS ORDERED: TOPI25TA84 PO (07:16)
[2021-06-13 09:00] VITALS: BP 92/66
[2021-06-13] MEDS: ASPirin-EC 81 mg tab PO SCH (09:23)
[2021-06-13] MEDS: PANTOPRAZOLE 40 MG TAB PO SCH (09:23)
[2021-06-13] MEDS: FOLIC ACID 1 MG TAB PO SCH (09:23)
[2021-06-13] MEDS: CHOLECALCIFEROL (VITD3) 2,000 UNIT CAP/TAB PO SCH (09:23)
[2021-06-13] MEDS: ENOXAPARIN SOD 40 MG/0.4 ML SYRINGE SC SCH (09:24)
[2021-06-13] MEDS: buPROPion HCL 75 MG TAB PO SCH (09:24)
[2021-06-13] MEDS: Anastrozole 1 MG TABLET PO SCH (10:17)
[2021-06-13 12:00] VITALS: BP 110/70
[2021-06-13 16:00] VITALS: BP 94/66
[2021-06-13] MEDS: traZODone HCL 50 MG TAB PO SCH (21:22)
[2021-06-13 22:00] VITALS: BP 111/74
[2021-06-13] MEDS: SODIUM CHLORIDE 0.9% 1,000 ML IV SCH (22:51)
[2021-06-14 05:00] VITALS: BP 98/55
[2021-06-14] MEDS: SODIUM CHLORIDE 0.9% 1,000 ML IV SCH ×2 (05:00→17:33)
[2021-06-14] MEDS: SUCRALFATE 1 GM/10 ML ORAL SUSP PO SCH ×2 (06:46→17:30)
[2021-06-14] MEDS: LEVOTHYROXINE SODIUM 25 MCG TAB PO SCH (06:46)
[2021-06-14 09:00] VITALS: BP 110/72
[2021-06-14] MEDS: FOLIC ACID 1 MG TAB PO SCH (09:21)
[2021-06-14] MEDS: buPROPion HCL 75 MG TAB PO SCH (09:21)
[2021-06-14] MEDS: PANTOPRAZOLE 40 MG TAB PO SCH (09:21)
[2021-06-14] MEDS: TOPIRAMATE 100 MG TAB PO SCH ×2 (09:22→22:20)
[2021-06-14] MEDS: ASPirin-EC 81 mg tab PO SCH (09:22)
[2021-06-14] MEDS: ENOXAPARIN SOD 40 MG/0.4 ML SYRINGE SC SCH (09:23)
[2021-06-14] MEDS: CHOLECALCIFEROL (VITD3) 2,000 UNIT CAP/TAB PO SCH (09:23)
[2021-06-14] MEDS: Anastrozole 1 MG TABLET PO SCH (09:44)
[2021-06-14] MEDS ORDERED: IOHEXOL 350 MG/ML 100ML IJ ONE (11:03)
[2021-06-14 13:00] VITALS: BP 113/78
[2021-06-14] MEDS ORDERED: LIDOCAINE 2%HCL (LOCAL ANESTH.) INJ 20ML MDV ONE (13:12)
[2021-06-14] MEDS ORDERED: ANGIOMAX 250 MG VIAL IV ONE (13:15)
[2021-06-14] MEDS ORDERED: fentaNYL CITRATE 100 MCG/2 ML VL ONE (13:15)
[2021-06-14] MEDS ORDERED: VERAPAMIL 2.5MG/ML INJ 2ML VIAL IV ONE (13:15)
[2021-06-14] MEDS ORDERED: MIDAZOLAM HCL 2MG/2ML 2ml VIAL (1mg/ml) ONE ×2 (13:16→13:39)
[2021-06-14] MEDS ORDERED: SODIUM CHL 0.9% 50 ML ONE (13:16)
[2021-06-14] MEDS ORDERED: HEPARIN SODIUM (PORCINE) 5000 UNITS/ML 1ML VIAL ONE (13:18)
[2021-06-14] MEDS ORDERED: IODIXANOL 320MG/ML 100ML BTL IV ONE ×2 (13:32→13:45)
[2021-06-14] MEDS ORDERED: diphenhdrAMINE HCL 50 MG/1 ML VL ONE (13:48)
[2021-06-14] MEDS ORDERED: TICAGRELOR 90 MG TAB ONE (14:00)
[2021-06-14 17:00] VITALS: BP 125/87
[2021-06-14] MEDS: HYDROcodone-ACET 5/325MG TAB PO PRN ×2 (17:58→23:52)
[2021-06-14 22:00] VITALS: BP 129/70
[2021-06-14] MEDS: PREGABALIN CAPSULE 75 MG CAP PO SCH (22:19)
[2021-06-14] MEDS: ASCORBIC ACID 500 MG TAB PO SCH (22:19)
[2021-06-14] MEDS: SODIUM CHLOR 0.9% PF (SALINE LOCK) 10ML VIAL/SYR IV SCH (22:20)
[2021-06-14] MEDS: FERROUS SULFATE 325mg EC TAB PO SCH (22:20)
[2021-06-14] MEDS: ATORVASTATIN 20 MG TAB PO SCH (22:20)
[2021-06-14] MEDS: traZODone HCL 50 MG TAB PO SCH (22:20)
[2021-06-14] MEDS: TICAGRELOR 90 MG TAB PO SCH (22:34)
[2021-06-15] MEDS: SODIUM CHLORIDE 0.9% 1,000 ML IV SCH ×2 (01:00→10:15)
[2021-06-15 05:00] VITALS: BP 94/45
[2021-06-15] MEDS: SODIUM CHLOR 0.9% PF (SALINE LOCK) 10ML VIAL/SYR IV SCH ×3 (06:21→22:01)
[2021-06-15] MEDS: LEVOTHYROXINE SODIUM 25 MCG TAB PO SCH (06:24)
[2021-06-15] MEDS: SUCRALFATE 1 GM/10 ML ORAL SUSP PO SCH ×2 (06:24→16:58)
[2021-06-15 09:00] VITALS: BP 101/75
[2021-06-15] MEDS: ENOXAPARIN SOD 40 MG/0.4 ML SYRINGE SC SCH (09:56)
[2021-06-15] MEDS: buPROPion HCL 75 MG TAB PO SCH (10:02)
[2021-06-15] MEDS: CHOLECALCIFEROL (VITD3) 2,000 UNIT CAP/TAB PO SCH (10:02)
[2021-06-15] MEDS: TOPIRAMATE 100 MG TAB PO SCH ×2 (10:03→22:03)
[2021-06-15] MEDS: FERROUS SULFATE 325mg EC TAB PO SCH ×2 (10:04→22:01)
[2021-06-15] MEDS: ASCORBIC ACID 500 MG TAB PO SCH ×2 (10:05→22:03)
[2021-06-15] MEDS: ASPirin-EC 81 mg tab PO SCH (10:05)
[2021-06-15] MEDS: FOLIC ACID 1 MG TAB PO SCH (10:06)
[2021-06-15] MEDS: PANTOPRAZOLE 40 MG TAB PO SCH (10:06)
[2021-06-15] MEDS: TICAGRELOR 90 MG TAB PO SCH ×2 (10:08→22:02)
[2021-06-15] MEDS: Anastrozole 1 MG TABLET PO SCH (10:14)
[2021-06-15 13:00] VITALS: BP 117/74
[2021-06-15] MEDS: HYDROcodone-ACET 5/325MG TAB PO PRN ×2 (15:04→22:00)
[2021-06-15 17:00] VITALS: BP 119/70
[2021-06-15 21:55] VITALS: BP 108/66
[2021-06-15] MEDS: ATORVASTATIN 20 MG TAB PO SCH (22:02)
[2021-06-15] MEDS: traZODone HCL 50 MG TAB PO SCH (22:02)
[2021-06-15] MEDS: PREGABALIN CAPSULE 75 MG CAP PO SCH (22:03)
[2021-06-16 04:44] VITALS: BP 99/57
[2021-06-16] MEDS: SODIUM CHLOR 0.9% PF (SALINE LOCK) 10ML VIAL/SYR IV SCH ×2 (05:29→14:00)
[2021-06-16] MEDS: LEVOTHYROXINE SODIUM 25 MCG TAB PO SCH (07:13)
[2021-06-16] MEDS: SUCRALFATE 1 GM/10 ML ORAL SUSP PO SCH ×2 (07:13→18:07)
[2021-06-16 09:00] VITALS: BP 109/61
[2021-06-16] MEDS: FERROUS SULFATE 325mg EC TAB PO SCH (10:53)
[2021-06-16] MEDS: Anastrozole 1 MG TABLET PO SCH (10:53)
[2021-06-16] MEDS: CHOLECALCIFEROL (VITD3) 2,000 UNIT CAP/TAB PO SCH (10:53)
[2021-06-16] MEDS: buPROPion HCL 75 MG TAB PO SCH (10:54)
[2021-06-16] MEDS: PANTOPRAZOLE 40 MG TAB PO SCH (10:54)
[2021-06-16] MEDS: ASCORBIC ACID 500 MG TAB PO SCH (10:54)
[2021-06-16] MEDS: ASPirin-EC 81 mg tab PO SCH (10:54)
[2021-06-16] MEDS: TOPIRAMATE 100 MG TAB PO SCH (10:55)
[2021-06-16] MEDS: ENOXAPARIN SOD 40 MG/0.4 ML SYRINGE SC SCH (10:55)
[2021-06-16] MEDS: FOLIC ACID 1 MG TAB PO SCH (10:55)
[2021-06-16] MEDS: TICAGRELOR 90 MG TAB PO SCH (11:02)
[2021-06-16 13:00] VITALS: BP 109/66
[2021-06-16 17:00] VITALS: BP 105/61
== END 2021-06-16 20:08 | disposition home or self-care (01) | DRG 175 ==
LOC: ER 12:53 → EDBD 12:53 → TELE 18:21 → TELE-WESTW 21:52
PROVIDERS: ADMIT Nurse Practitioner; ATTEND Nurse Practitioner
PROC: 4A023N7 Measurement of Cardiac Sampling and Pressure, Left Heart, Percutaneous Approach (ICD-10-PCS; principal; 2021-06-14)
PROC: 027135Z Dilation of Coronary Artery, Two Arteries with Two Drug-eluting Intraluminal Devices, Percutaneous Approach (ICD-10-PCS; 2021-06-14)
PROC: B211YZZ Fluoroscopy of Multiple Coronary Arteries using Other Contrast (ICD-10-PCS; 2021-06-14)
PROC: B215YZZ Fluoroscopy of Left Heart using Other Contrast (ICD-10-PCS; 2021-06-14)
DX: I25.10 Atherosclerotic heart disease of native coronary artery without angina pectoris (principal); I24.9 Acute ischemic heart disease, unspecified; E86.0 Dehydration; R55 Syncope and collapse; E78.5 Hyperlipidemia, unspecified; F41.9 Anxiety disorder, unspecified; Z85.3 Personal history of malignant neoplasm of breast; G25.81 Restless legs syndrome; G56.00 Carpal tunnel syndrome, unspecified upper limb; G62.9 Polyneuropathy, unspecified; K21.9 Gastro-esophageal reflux disease without esophagitis; Z20.822 Contact with and (suspected) exposure to COVID-19; K58.9 Irritable bowel syndrome, unspecified; G47.419 Narcolepsy without cataplexy; M19.90 Unspecified osteoarthritis, unspecified site; G47.10 Hypersomnia, unspecified; G43.009 Migraine without aura, not intractable, without status migrainosus; G47.00 Insomnia, unspecified; M81.0 Age-related osteoporosis without current pathological fracture; Z79.899 Other long term (current) drug therapy; Z82.49 Family history of ischemic heart disease and other diseases of the circulatory system; Z87.11 Personal history of peptic ulcer disease; Z87.891 Personal history of nicotine dependence; Z90.49 Acquired absence of other specified parts of digestive tract; Z90.710 Acquired absence of both cervix and uterus; Z92.21 Personal history of antineoplastic chemotherapy
CPT/HCPCS: 36415; 70496; 70498; 71045; 78452; 80053; 80061; 82728; 83036; 83735; 83880; 84443; 84484; 84702; 85025; 85610; 85730; 86850; 86900; 86901; 87426; 92928; 93005; 93017; 93306; 93458; 93886; 95819; 96374; 96375; 99152; 99153; C1874; C1887; G0378; J0153; J2250; J2405; Q9967

== ENCOUNTER 2023-04-07 07:03 | Day surgery (SDC) | payer MEDICAID ==
[~2023-04-07] VITALS: Ht 157.5 cm; Wt 51.7 kg
[~2023-04-07 07:03] MED LIST changes: -ANAS1TAB7 PO; +ATOR-47 PO; -BUPR-160 PO; +BUPR-346 PO; +CLOP75TA70 PO; +EZET10TA22 PO; +FOLI-119 PO; -FOLI1TAB6 PO; -GABA100C9 PO; +LEVO50TA7 PO; -LEVO75TA6 PO; +OXYC325T14 PO; +PANT1INJ3 PO; -PERCOT PO; +PREG75CA PO; -RABE20TA19 PO; +RANO500T3 PO; -ROPI0.254 PO; -SIMV-13 PO; -TIZA4CAP PO; -TOPI25TA84 PO; +TRAZ-228 PO; -TRAZ100T3 PO
[2023-04-07] MEDS ORDERED: LIDOCAINE 2%HCL (LOCAL ANESTH.) INJ 20ML MDV ONE (09:06)
[2023-04-07] MEDS ORDERED: IODIXANOL 320MG/ML 100ML BTL IV ONE (09:07)
[2023-04-07] MEDS ORDERED: IOHEXOL 350 MG/ML 100ML IJ ONE (09:07)
[2023-04-07] MEDS ORDERED: VERAPAMIL 2.5MG/ML INJ 2ML VIAL IV ONE (09:13)
[2023-04-07] MEDS ORDERED: HEPARIN SODIUM (PORCINE) 5000 UNITS/ML 1ML VIAL ONE (09:13)
[2023-04-07] MEDS ORDERED: fentaNYL CITRATE 100 MCG/2 ML VL ONE (09:13)
[2023-04-07] MEDS ORDERED: ANGIOMAX 250 MG VIAL IV ONE (09:13)
[2023-04-07] MEDS ORDERED: SODIUM CHL 0.9% 0 ML ONE (09:14)
[2023-04-07] MEDS ORDERED: MIDAZOLAM HCL 2MG/2ML 2ml VIAL (1mg/ml) ONE (09:14)
== END 2023-04-07 12:35 | disposition home or self-care (01) ==
LOC: CATH 07:03
PROVIDERS: ATTEND Internal Medicine Cardiovascular Disease
DX: R94.39 Abnormal result of other cardiovascular function study (principal); R07.89 Other chest pain; I25.10 Atherosclerotic heart disease of native coronary artery without angina pectoris; E78.5 Hyperlipidemia, unspecified; E03.9 Hypothyroidism, unspecified; M79.7 Fibromyalgia; Z85.3 Personal history of malignant neoplasm of breast; Z95.5 Presence of coronary angioplasty implant and graft; Z79.899 Other long term (current) drug therapy; Z79.82 Long term (current) use of aspirin; Z98.890 Other specified postprocedural states
CPT/HCPCS: 76937; 93458; C1760; C1894; J1644; J2250; J3010; Q9967; 99152; 99153

== ENCOUNTER 2024-01-18 16:59 | Emergency (ER) | payer MEDICAID ==
[~2024-01-18] VITALS: Ht 154.9 cm; Wt 111.6 kg
[~2024-01-18 16:59] MED LIST changes: +DICY-89 PO; -DICY10CA12 PO
[2024-01-18 17:58] LABS: Urine Bacteria None Seen /hpf (None Seen)
[2024-01-18 18:22] LABS: Urine Blood Negative /uL (Negative); Urine Clarity Clear (Clear); Urine Color Light-Yellow (Yellow); Urine Mucus FEW (None Seen); Urine Protein, UAD Negative (Negative); Urine Urobilinogen Normal (Negative); Urine WBC 12 /hpf (0 - 5)
[2024-01-18 18:33] LABS: Basophils # (auto) 0 10 ^3/uL (0-0.2); Basophils % (auto) 0.4 % (0.0-2.0); Eosinophils # (auto) 0.1 10 ^3/uL (0-0.8); Eosinophils % (auto) 1.2 % (0.0-7.0); Hematocrit 39.1 % (36.0-46.0); Hemoglobin 12.9 g/dL (12.2-16.2); Lymphocytes # (auto) 1.6 10 ^3/uL (0.4-5.4); Lymphocytes % (auto) 37.7 % (10.0-50.0); Mean Corpuscular Hgb Conc. 32.9 g/dL (32.0-36.0); Mean Corpuscular Volume 94.2 fL (80.0-100.0); Monocytes # (auto) 0.5 10 ^3/uL (0-1.3); Monocytes % (auto) 11.4 % (0.0-12.0); Neutrophils # (auto) 2.1 10 ^3/uL (1.6-8.6); Neutrophils % (auto) 49.3 % (37.0-80.0); Red Blood Cells 4.16 10^6/uL (4.0-5.20); Red Cell Distribution Width 14.2 % (11.8-14.3); White Blood Cell 4.3 10^3/uL (4.4-10.8)
[2024-01-18 18:58] LABS: Alanine Aminotransferase 22 U/L (7-40); Albumin 3.9 g/dL (3.2-4.8); Alkaline Phosphatase 51 U/L (46-116); Anion Gap 7 (5-15); Aspartate Aminotransferase 26 U/L (13-40); BUN/Creatinine Ratio 40.3 (10.0-20.0); Bilirubin, Total 0.4 mg/dL (0.2-1.0); Blood Urea Nitrogen 31 mg/dL (9-23); Calcium 9.5 mg/dL (8.7-10.4); Carbon Dioxide 20 mmol/L (20-30); Chloride 114 mmol/L (98-107); Glucose 82 mg/dL (74-106); Lipase 37 U/L (12-53); Potassium 4.3 mmol/L (3.5-5.1); Sodium 141 mmol/L (136-145); Total Protein 6.1 g/dL (5.7-8.2)
[2024-01-18] MEDS ORDERED: MORPHINE SULFATE INJ 2 MG/ml SYRG IV ONE (22:15)
[2024-01-18] MEDS ORDERED: ZOFR4T PO (22:36)
[2024-01-18] MEDS ORDERED: CEPH500C PO (22:36)
[2024-01-18] MEDS ORDERED: FAMO20TA10 PO (22:36)
[2024-01-19 00:25] VITALS: TEMP 97.4
[2024-01-19] MEDS: ACETAMINOPHEN 500 MG TAB PO ONE (00:40)
[2024-01-19] MEDS: PANTOPRAZOLE 40 MG/10 ML VIAL INJ IV ONE (00:40)
[2024-01-19] MEDS: SODIUM CHLORIDE 0.9% 1,000 ML IV ONE (00:40)
[2024-01-19] MEDS: ONDANSETRON HCL 4 MG/2 ML VIAL IV ONE (00:40)
[2024-01-19 00:48] VITALS: O2SAT 97
[2024-01-19 02:09] VITALS: BP 120/72; PULSE 65; RESP 18; O2SAT 95
== END 2024-01-19 02:09 | disposition home or self-care (01) ==
LOC: ER 16:59
DX: K44.9 Diaphragmatic hernia without obstruction or gangrene (principal); K29.00 Acute gastritis without bleeding; N39.0 Urinary tract infection, site not specified; R10.11 Right upper quadrant pain; R10.12 Left upper quadrant pain; F41.9 Anxiety disorder, unspecified; I25.10 Atherosclerotic heart disease of native coronary artery without angina pectoris; F15.90 Other stimulant use, unspecified, uncomplicated; Z85.9 Personal history of malignant neoplasm, unspecified; Z98.890 Other specified postprocedural states; Z87.891 Personal history of nicotine dependence; Z88.8 Allergy status to other drugs, medicaments and biological substances; Z79.899 Other long term (current) drug therapy
CPT/HCPCS: 36415; 74176; 80053; 81001; 83690; 84484; 85025; 93005; 96361; 96374; 96375; 99285; C9113; J2405; J7030

== ENCOUNTER 2024-10-15 21:58 | Emergency (ER) | payer MEDICAID ==
[~2024-10-15] VITALS: Ht 154.9 cm; Wt 44.7 kg
[~2024-10-15 21:58] MED LIST changes: +CEPH500C PO; +FAMO20TA10 PO; +ZOFR4T PO
--- NOTE | 2024-10-15 22:38 | ED.PDOC ---
HPI Comments This patient is a 64 year old female who came to ER due to chest pains. Patient has history of hypertension, dyslipidemia, CAD, status post cardiac stents and thyroid concerns and has been having intermittent episodes of chest pains the past few days, with episodes of uncontrollable twitching/ tremors that happens randomly. Patient currently being managed by her PCP. Patient denies any fever nausea or vomiting. Like he has a vital signs were stable on arrival. Patient is displaying uncontrollable movement that looks like a tardive dyskinesia. Chief Complaint: Chest Pain Time Seen by MD: 22:37 Primary Care Provider: UNKNOWN Reviewed Notes: Nurses Notes Allergies: Coded Allergies: Sulfa Drugs (Verified Allergy, Intermediate, RASH, 04/06/23) Sulfa Antibiotics (Unverified Allergy, Unknown, 04/06/23) Hydromorphone (Verified Adverse Reaction, Intermediate, ITCHING, 04/06/23) Home Meds Active Scripts Famotidine (PEPCID TABLET) 20 Mg Tb, 1 TAB PO BID for 30 Days, #60 TAB Prov:ROSS PIERCE Q [employer]GET[employer] THINNER 01/18/24 Ondansetron Odt 4MG Tab (ZOFRAN PO) 4 Mg Tb, 1 TAB PO Q8HPRN PRN, #10 TAB as needed for nausea vomiting ODT TAB-DISSOLVE IN MOUTH, THEN SWALLOW Prov:ROSS PIERCE Q [employer]GET[employer] THINNER 01/18/24 Cephalexin Monohydrate (Cephalexin) 500 Mg Cap, 1 CAP PO QID for 10 Days, #40 CAP Prov:NASH PIERCEALDA Q [employer]GETABLE THINNER 01/18/24 Reported Medications Ranolazine (Ranolazine ER) 500 Mg Tab, 500 MG PO BID for ANGINA, TAB 04/06/23 Ezetimibe (Zetia) 10 Mg Tab, 1 TAB PO DAILY for ANXIETY, #30 TAB 5 Refills 04/06/23 Oxycodone W/ Acetaminophen (Apap/Oxycodone) 1 Tab Tab, 1 TAB PO TID for TAKES 10/325 FOR PAIN, #90 TAB 04/06/23 Levothyroxine Sodium (Levothyroxine Sodium) 50 Mcg Tab, 50 MCG PO QAM for LOW THYROID for 30 Days, MCG 04/06/23 Pregabalin (Lyrica) 75 Mg Cap, 1 CAP PO BID for RESTLESS LEGS, #60 CAP 1 Refill 04/06/23 Atorvastatin Calcium (ATORVASTATIN CALCIUM) 80 Mg Tab, 1 TAB PO DAILY for HIGH CHOLESTEROL, #30 TAB 5 Refills 04/06/23 Clopidogrel Bisulfate (CLOPIDOGREL) 75 Mg Tab, 75 MG PO DAILY for S/P STENTS STOPPED 03/30/23, MG 04/06/23 Pantoprazole Sodium (PANTOPRAZOLE SODIUM) 40 Mg Inj, 40 MG PO DAILY, INJ 06/12/21 Trazodone Hcl (Trazodone Hcl) 100 Mg Tab, 1 TAB PO QPM 03/06/21 Topiramate (Topiramate) 25 Mg Cap, 100 MG PO BID 03/06/21 Dicyclomine Hcl (Dicyclomine Hcl) 10 Mg Cap, 10 MG PO PRN for CRAMPS 03/06/21 Methotrexate (Methotrexate) 2.5 Mg Tab, 12.5 MG PO QWEEKLY for ARTHRITIS 02/27/21 Alendronate Sodium (Alendronate Sodium) 70 Mg Tab, 1 TAB PO QWEEKLY for OSTEOARTHRITIS 02/27/21 Folic Acid (Folic Acid) 1 Mg Tab, 1 MG PO DAILY for SUPPLEMENT for 30 Days, MG 02/24/21 Cholecalciferol (VITAMIN D3) 2,000 Unit Tab, 2000 UNIT OR DAILY for SUPPLEMENT, TAB 02/24/21 Bupropion Hcl (Bupropion Hcl) 100 Mg Tab, 150 MG PO DAILY for ANXIETY for 30 Days, MG 02/24/21 Information Source: Patient, Spouse Mode of Arrival: Ambulatory Severity: Moderate Timing: Days Duration: Intermittent Prehospital treatment: None Location: Substernal Radiation: No Radiation Quality: Pressure Onset: With Light Exertion Cardiac Risk Factors: Hyperlipidemia, HTN PE Risk Factors: None History of: Similar pain in past Associated Signs and Symptoms: N/V Past Medical History PAST MEDICAL HISTORY: Anxiety, CAD, Cancer, High Lipids, Thyroid Surgical History: Appendectomy, Hernia Repair, Hysterectomy, PTCA, Tonsillectomy, Tubal Ligation [employer] History: Ovarian Cysts Family History Family History: No family hx of Cancer, No family hx of DM, No family hx of Heart page Social History Smoker: Quit Greater Than 1 Year, Cigarettes Alcohol: Occasionally Drugs: Marijuana Lives In: Home Constitutional: denies: chills, diaphoresis, fatigue, fever, malaise, sweats, weakness, others EENTM: denies: blurred vision, double vision, ear bleeding, ear discharge, ear drainage, ear pain, ear ringing, eye pain, eye redness, hearing loss, mouth pain, mouth swelling, nasal discharge, nose bleeding, nose congestion, nose pain, photophobia, tearing, throat pain, throat swelling, voice changes, others Respiratory: denies: cough, hemoptysis, orthopnea, SOB at rest, shortness of breath, SOB with excertion, stridor, wheezing, others Cardiovascular: reports: chest pain, dizzy spells; denies: diaphoresis, Dyspnea on exertion, edema, irregular heart beat, left arm pain, lightheadedness, palpitations, PND, syncope, others Gastrointestinal: denies: abdomen distended, abdominal pain, blood streaked bowels, constipated, diarrhea, dysphagia, difficulty swallowing, hematemesis, melena, nausea, poor appetite, poor fluid intake, rectal bleeding, rectal pain, vomiting, others Genitourinary: denies: abnormal vagina bleeding, burning, dyspareunia, dysuria, flank pain, frequency, hematuria, incontinence, pain, , vagina discharge, urgency, others Neurological: reports: tremors (Twitching movement globally displayed); denies: dizziness, fainting, headache, left sided numbness, left sided weakness, numbness, paresthesia, pre-existing deficit, right sided numbness, right sided weakness, seizure, speech problems, tingling, weakness, others Musculoskeletal: denies: back pain, gout, joint pain, joint swelling, muscle pain, muscle stiffness, neck pain, others Integumetry: denies: bruises, change in color, change in hair/nails, dryness, laceration, lesions, lumps, rash, wounds, others Allergic/Immunocompromised: denies: Difficulty Healing, Frequent Infections, Hives, Itching, others Hematologic/Lymphatic: denies: anemia, blood clots, easy bleeding, easy bruising, swollen glands, others Endocrine: denies: excessive hunger, excessive sweating, excessive thirst, excessive urination, flushing, intolerance to cold, intolerance to heat, u nexplained weight gain, unexplained weight loss, others Psychiatric: denies: anxiety, bipolar disorder, depression, hopeless, panic disorder, schizophrenia, sleepless, suicidal, others Physical Exam General Appearance: Moderate Distress (Distress due to chest pain and movement concerns.), Normal HEENT: Normal ENT Inspection, Pharynx Normal, TMs Normal Neck: Full Range of Motion, Non-Tender, Normal, Normal Inspection Respiratory: Chest Non-Tender, Lungs Clear, No Accessory Muscle Use, No Respiratory Distress, Normal Breath Sounds, Other (Unremarkable auscultation bilateral lung hassan.) Cardiovascular: No Edema, No JVD, No Murmur, No Gallop, Normal Peripheral Pulses, Regular Rate/Rhythm Breast Exam: Deferred Gastrointestinal: No Organomegaly, Non Tender, No Pulsatile Mass, Normal Bowel Sounds, Soft Genitalia: Deferred Pelvic: Deferred Rectal: Deferred Extremities: Other (Patient displays a global twitching display without pain concerns. Movement presents like a tardive dyskinesia rather than a Parkinson's concern.) Musculoskeletal : Apperance: Normal Neurologic: Alert, Normal Affect, Normal Mood Cerebellar Function: NOT DONE Reflexes: NOT DONE Skin: Dry, Normal Color, Warm Lymphatic: No Adenopathy Was a procedure done? Was a procedure done?: No CP Differential Dx Differential Diagnosis: Angina, Anxiety / Panic Attack, Hyperthyroidism Differential Diagnosis: Angina, Chest Wall Pain, Gastritis, Myocardial Infarction X-Ray, Labs, Meds, VS Vital Signs Date Time Temp Pulse Resp B/P (MAP) Pulse Ox O2 Delivery O2 Flow Rate FiO2 10/15/24 22:31 80 10/15/24 22:05 97.9 95 18 140/92 (108) 99 10/15/24 22:05 95 Lab Test 10/15/24 23:39 10/15/24 22:37 Range/Units Troponin I High Sensitivity 6 6 </=34 ng/L White Blood Count 4.3 L 4.4-10.8 10^3/uL Red Blood Count 4.42 4.0-5.20 10^6/uL Hemoglobin 13.2 12.2-16.2 g/dL Hematocrit 40.7 36.0-46.0 % Mean Corpuscular Volume 92.1 80.0-100.0 fL Mean Corpuscular Hemoglobin 29.9 28.0-32.0 pg Mean Corpuscular Hemoglobin Concent 32.4 32.0-36.0 g/dL Red Cell Distribution Width 14.9 H 11.8-14.3 % Platelet Count 203 140-450 10^3/uL Mean Platelet Volume 9.0 6.9-10.8 fL Neutrophils (%) (Auto) 44.5 37.0-80.0 % Lymphocytes (%) (Auto) 41.7 10.0-50.0 % Monocytes (%) (Auto) 11.0 0.0-12.0 % Eosinophils (%) (Auto) 2.0 0.0-7.0 % Basophils (%) (Auto) 0.8 0.0-2.0 % Neutrophils # (Auto) 1.9 1.6-8.6 10 ^3/uL Lymphocytes # (Auto) 1.8 0.4-5.4 10 ^3/uL Monocytes # (Auto) 0.5 0-1.3 10 ^3/uL Eosinophils # (Auto) 0.1 0-0.8 10 ^3/uL Basophils # (Auto) 0 0-0.2 10 ^3/uL Nucleated Red Blood Cells 0.2 % D-Dimer, Quantitative 0.33 0.0-0.49 mg/L FEU Sodium Level 144 136-145 mmol/L Potassium Level 3.3 L 3.5-5.1 mmol/L Chloride Level 109 H 98-107 mmol/L Carbon Dioxide Level 26 20-31 mmol/L Anion Gap 9 5-15 Blood Urea Nitrogen 30 H 9-23 mg/dL Creatinine 0.93 0.550-1.02 mg/dL Glomerular Filtration Rate Calc 69 >90 mL/min BUN/Creatinine Ratio 32.3 H 10.0-20.0 Serum Glucose 117 H 74-106 mg/dL Calcium Level 10.0 8.7-10.4 mg/dL Magnesium Level 1.9 1.6-2.6 mg/dL Total Bilirubin 0.3 0.2-1.0 mg/dL Aspartate Amino Transferase (AST) 31 13-40 U/L Alanine Aminotransferase (ALT) 38 7-40 U/L Alkaline Phosphatase 66 46-116 U/L Total Protein 6.4 5.7-8.2 g/dL Albumin 4.6 3.2-4.8 g/dL Thyroid Stimulating Hormone (TSH) 11.17 H 0.55-4.78 uIU/mL X-Ray, Labs, Meds, VS Comment All studies performed the ED were evaluated by me personally. Patient's laboratories revealed a mildly reduced potassium at 3.3. Patient received an effervescent potassium prior to discharge. More concerning was the patient's TSH level was elevated. Patient will need to follow up with her primary care provider for medication adjustment of her levothyroxine. EKG revealed a sinus rhythm with a rate of 80. Probable left atrial enlargement, left ventricular hypertrophy and baseline wander in lead one and three. IL interval 140 and QT interval 411. Chest x-ray was unremarkable for any consolidation or intrapulmonary concerns. Patient may be having her concerns related to her TSH levels. Advised follow up with the primary care provider. Time of 1ST Reevaluation: 02:06 Reevaluation 1ST: Improved Consultation: PCP Patient Education/Counseling: Diagnosis, Treatment Family Education/Counseling: Diagnosis, Treatment, No Family Present Departure 1 Departure Time of Disposition: 02:07 Impression: Primary Impression: Chest pain Additional Impressions: Elevated TSH Movement disorder Disposition: 01 HOME / SELF CARE / HOMELESS Condition: Stable Additional Instructions: Advised patient to follow up with the primary care provider for discussions related to thyroid concerns and movement disorder issues. Patient may require a neurologic consultation and possible rheumatology consultation. Discharged With: Self, Friend Critical Care Note Critical Care Time?: No Stability Stability form required: No Heart Score Heart Score: Heart Score Response (Comments) Value History Slightly Suspicious 0 EKG Repolarization Disturb 1 Age 45-64 1 Risk Factors 1 or 2 risk factors 1 Troponin Normal limit 0 Total 3 I personally scribed for ROSIO GLEASON MD ([email or web address]) on 10/15/24 at 22:38. Electronically submitted by Zaki Valladares ([email or web address]). ROSIO GLEASON MD Oct 15, 2024 22:38 NIURKA ROJO Oct 16, 2024 02:11
--- NOTE | 2024-10-15 22:56 | DVH ---
CHEST RADIOGRAPH Indication: Shortness of breath Technique: Single frontal view of the chest was obtained Comparison: CHEST PORTABLE on DOS: 06/11/21 FINDINGS: Lines and Tubes: None Lungs: Clear Pleura: No effusion. No pneumothorax. Cardiomediastinal contours: Unremarkable Bones: Unremarkable IMPRESSION: Clear lungs.
[2024-10-15 22:58] LABS: Basophils # (auto) 0 10 ^3/uL (0-0.2); Basophils % (auto) 0.8 % (0.0-2.0); Eosinophils # (auto) 0.1 10 ^3/uL (0-0.8); Hematocrit 40.7 % (36.0-46.0); Hemoglobin 13.2 g/dL (12.2-16.2); Lymphocytes # (auto) 1.8 10 ^3/uL (0.4-5.4); Lymphocytes % (auto) 41.7 % (10.0-50.0); Mean Corpuscular Hemoglobin 29.9 pg (28.0-32.0); Mean Corpuscular Hgb Conc. 32.4 g/dL (32.0-36.0); Mean Corpuscular Volume 92.1 fL (80.0-100.0); Monocytes # (auto) 0.5 10 ^3/uL (0-1.3); Neutrophils # (auto) 1.9 10 ^3/uL (1.6-8.6); Neutrophils % (auto) 44.5 % (37.0-80.0); Nucleated Red Blood Cells % 0.2 %; Platelet Count (auto) 203 10^3/uL (140-450); Red Blood Cells 4.42 10^6/uL (4.0-5.20); Red Cell Distribution Width 14.9 % (11.8-14.3); White Blood Cell 4.3 10^3/uL (4.4-10.8)
[2024-10-15 23:18] LABS: Alanine Aminotransferase 38 U/L (7-40); Albumin 4.6 g/dL (3.2-4.8); Alkaline Phosphatase 66 U/L (46-116); Anion Gap 9 (5-15); Aspartate Aminotransferase 31 U/L (13-40); BUN/Creatinine Ratio 32.3 (10.0-20.0); Carbon Dioxide 26 mmol/L (20-31); Magnesium 1.9 mg/dL (1.6-2.6); Sodium 144 mmol/L (136-145); Total Protein 6.4 g/dL (5.7-8.2)
[2024-10-15 23:39] LABS: Bilirubin, Total 0.3 mg/dL (0.2-1.0); Blood Urea Nitrogen 30 mg/dL (9-23); Chloride 109 mmol/L (98-107); Glucose 117 mg/dL (74-106); Potassium 3.3 mmol/L (3.5-5.1)
[2024-10-16] MEDS: ACETAMINOPHEN 325 MG TAB PO ONE (02:47)
[2024-10-16] MEDS: POTASSIUM EFFERVESENT TAB 25 MEQ PO ONE (02:47)
[2024-10-16 02:49] VITALS: BP 101/60; PULSE 69; RESP 18; TEMP 97.5; O2SAT 97
--- NOTE | 2024-10-17 08:15 | ECG ---
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
== END 2024-10-16 02:55 | disposition home or self-care (01) ==
LOC: ER 22:06
DX: R07.89 Other chest pain (principal); E03.9 Hypothyroidism, unspecified; G25.9 Extrapyramidal and movement disorder, unspecified; E78.5 Hyperlipidemia, unspecified; I25.10 Atherosclerotic heart disease of native coronary artery without angina pectoris; F41.9 Anxiety disorder, unspecified; Z90.710 Acquired absence of both cervix and uterus; Z90.49 Acquired absence of other specified parts of digestive tract; Z95.5 Presence of coronary angioplasty implant and graft; Z98.890 Other specified postprocedural states; Z79.02 Long term (current) use of antithrombotics/antiplatelets; Z87.891 Personal history of nicotine dependence; Z79.890 Hormone replacement therapy; Z79.899 Other long term (current) drug therapy; Z88.2 Allergy status to sulfonamides; Z88.5 Allergy status to narcotic agent
CPT/HCPCS: 36415; 71045; 80053; 83735; 84443; 84484; 85025; 85379; 93005

== ENCOUNTER 2025-03-24 11:48 | Inpatient (IN) | payer MEDICAID ==
[~2025-03-24] VITALS: Ht 154.9 cm; Wt 53.7 kg
--- NOTE | 2025-03-24 12:03 | ED.PDOC ---
Back pain HPI HPI Comments HPI: A 64 year-old female presents to the ED with a chief complaint of right lower rib pain as of X2 days ago. Patient reports bending down and hearing a "pop" with rib pain since. Patient has no further complaints at this time and otherwise denies further associated symptoms of N/V/D, abdominal pain, migraine, dizziness, chest pain, dysuria, or hematuria. Past Medical history: Left Breast Cancer, HDL, Anxiety, CAD, Thyroid Disease Past Surgical history: Tonsillectomy, Hysterectomy, Shoulder, Knee, Wrist, Foot, Hiatal Hernia, Heart Stent, Carpel Tunnel, Breast Lumpectomy Medications: Plavix Social History: Allergies: HPI: Poor Historian. Past Medical History: Past Surgical History: REVIEW OF SYSTEMS: CONSTITUTIONAL: Denies acute: fever, diaphoresis, chills, HEAD: Denies acute: headache, photophobia Eyes: Denies acute: Double vision, vision loss, eye pain, eye discharge. EARS: Denies acute: tinnitus, hearing loss, ear discharge, ear pain, THROAT: Denies acute: sore throat, swelling, difficulty swallowing , pain with swallowing, change in voice. NECK: Denies acute: neck pain, neck swelling, stiff neck. HEART: Denies acute : chest pain, palpitations, LUNGS: Denies acute: SOB, wheezing, cough, hemoptysis ABDOMEN: Denies acute: abdominal pain, Nausea, Vomiting, diarrhea, melena , hematemesis, hematochezia SKIN: Denies acute: rash, redness, lesions, itchiness. EXTREMITIES: Denies acute: calf pain, numbness, tingling, weakness, denies pain in extremity. Denies acute: Low back pain. Neuro: Denies acute: focal neurological deficit, motor or sensory focal neurological deficit, tremors, seizure like activity, confusion, dizziness, change in mental status, loss of bowel or bladder function, cauda equina like symptoms. : Denies acute: dysuria, hematuria, increase in urinary frequency. PSYCH: Denies acute: hallucination, suicidal ideation, homicidal ideation. FEMALE: Denies acute: abnormal vaginal bleeding, foul odor, unusual discharge. PHYSICAL EXAM: General: ----moderate to severe----acute distress, awake and alert. Head: normocephalic, atraumatic. Neck: supple, trachea is midline, no swelling. Throat: Normal phonation. Eyes:, no erythema, no purulent discharge, no proptosis, no icterus. Heart: regular rate, regular rhythm, no significant murmur appreciated. Lungs: no apparent respiratory distress, Able to speak in full sentences. No wheezing, no rhonchi, no crackles. No stridors Clear to auscultation bilaterally. Abdomen: non tender to palpation, non distended, soft, no guarding, no rebound, + bowel sounds. Evaluation of the area of pain: Patient points to right flank right lower ribcage region where her pain is that is tender to palpation. No appreciated crepitus or swelling noted. Pain extends to the right upper quadrant. Neuro: Awake, Alert, oriented to name, self, situation, follows commands GCS=15. Speech is normal. Skin: no petechia, no purpura, no cyanosis, non-pale, not jaundice. Lower extremities: --no - Pitting edema no deformity, no focal swelling, no calf TTP. Makes eye contact. moves all four extremities. Face: no apparent facial droop. ED COURSE: DISCLAIMER: This medical document was created using an electronic medical record system with voice recognition software and computerized dictation system. Although this document has been carefully reviewed, there might still be some phonetic and typographical errors. Occasional wrong-word or "sound-alike" substitutions may have occurred due to the inherent limitations of voice recognition software. These areas are purely typographical due to imperfections of the software programs and do not reflect any compromise in the patient's medical care. Please read the chart carefully and recognize, using context, where these substitutions have occurred. 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/24 Ondansetron Odt 4MG Tab (ZOFRAN PO) 4 Mg Tb, 1 TAB PO Q8HPRN PRN, #10 TAB as needed for nausea vomiting ODT TAB-DISSOLVE IN MOUTH, THEN SWALLOW 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/24 Cephalexin Monohydrate (Cephalexin) 500 Mg Cap, 1 CAP PO QID for 10 Days, #40 CAP 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/24 Reported Medications Sertraline Hcl (Zoloft) 25 Mg Tab, 1 TAB PO DAILY, #30 TAB 2 Refills 03/25/25 Ranolazine (Ranolazine ER) 500 Mg Tab, 500 MG PO BID for ANGINA, TAB 04/06/23 Ezetimibe (Zetia) 10 Mg Tab, 1 TAB PO DAILY for ANXIETY, #30 TAB 5 Refills 04/06/23 Oxycodone W/ Acetaminophen (Apap/Oxycodone) 1 Tab Tab, 1 TAB PO TID for TAKES 10/ FOR PAIN, #90 TAB 04/06/23 Levothyroxine Sodium (Levothyroxine Sodium) 50 Mcg Tab, 50 MCG PO QAM for LOW THYROID for 30 Days, MCG 04/06/23 Pregabalin (Lyrica) 75 Mg Cap, 1 CAP PO BID for RESTLESS LEGS, #60 CAP 1 Refill 04/06/23 Atorvastatin Calcium (ATORVASTATIN CALCIUM) 80 Mg Tab, 1 TAB PO DAILY for HIGH CHOLESTEROL, #30 TAB 5 Refills 04/06/23 Clopidogrel Bisulfate (CLOPIDOGREL) 75 Mg Tab, 75 MG PO DAILY for S/P STENTS STOPPED 03/30/23, MG 04/06/23 Pantoprazole Sodium (PANTOPRAZOLE SODIUM) 40 Mg Inj, 40 MG PO DAILY, INJ 06/12/21 Trazodone Hcl (Trazodone Hcl) 100 Mg Tab, 1 TAB PO QPM 03/06/21 Topiramate (Topiramate) 25 Mg Cap, 100 MG PO BID 03/06/21 Dicyclomine Hcl (Dicyclomine Hcl) 10 Mg Cap, 10 MG PO PRN for CRAMPS 03/06/21 Methotrexate (Methotrexate) 2.5 Mg Tab, 12.5 MG PO QWEEKLY for ARTHRITIS 02/27/21 Alendronate Sodium (Alendronate Sodium) 70 Mg Tab, 1 TAB PO QWEEKLY for OSTEOARTHRITIS 02/27/21 Folic Acid (Folic Acid) 1 Mg Tab, 1 MG PO DAILY for SUPPLEMENT for 30 Days, MG 02/24/21 Cholecalciferol (VITAMIN D3) 2,000 Unit Tab, 2000 UNIT OR DAILY for SUPPLEMENT, TAB 02/24/21 Bupropion Hcl (Bupropion Hcl) 100 Mg Tab, 150 MG PO DAILY for ANXIETY for 30 Days, MG 02/24/21 Information Source: Patient Mode of Arrival: Wheelchair Timing: Days Duration: Since onset Severity: Moderate Prehospital treatment: None History of: Cancer Associated signs and symptoms: Other (Rib Pain ) Past Medical History PAST MEDICAL HISTORY: Anxiety, CAD, Cancer, High Lipids, Thyroid Surgical History: Appendectomy, Hernia Repair, Hysterectomy, PTCA, Tonsillectomy, Tubal Ligation DIRECTOR OPERATIONS History: Ovarian Cysts Family History Family History: No family hx of Cancer, No family hx of DM, No family hx of Heart page Social History Smoker: Quit Greater Than 1 Year, Cigarettes Alcohol: Occasionally Drugs: Marijuana Lives In: Home Was a procedure done? Was a procedure done?: No Back Pain Differential Dx Differential Diagnosis: Fracture, Hepatitis, Strain, Other (Flank Pain;DDX include Nephrolethiasis, obstructive uropathy, kidney cancer, renal infarct, intraabdominal neoplasm, lower lobe pneumonia, retroperitoneal hemorrhage, pancreatitis, aneurysm, dissection, musculoskeletal, rib contusion/trauma, hematoma, PYLONEPHRITIS, muscle strain, spinal disease.) X-Ray, Labs, Meds, VS Vital Signs Date Time Temp Pulse Resp B/P (MAP) Pulse Ox O2 Delivery O2 Flow Rate FiO2 03/24/25 14:37 97.7 69 20 130/84 (99) 100 97.7 03/24/25 14:37 69 20 100 Room Air 03/24/25 12:13 98.0 98 24 155/103 (120) 99 98.0 Lab Test 03/24/25 14:05 03/24/25 14:02 03/24/25 13:10 Range/Units Thyroid Stimulating Hormone (TSH) 5.09 H 0.55-4.78 uIU/mL White Blood Count 6.2 4.4-10.8 10^3/uL Red Blood Count 4.57 4.0-5.20 10^6/uL Hemoglobin 14.5 12.2-16.2 g/dL Hematocrit 43.0 36.0-46.0 % Mean Corpuscular Volume 94.0 80.0-100.0 fL Mean Corpuscular Hemoglobin 31.7 28.0-32.0 pg Mean Corpuscular Hemoglobin Concent 33.7 32.0-36.0 g/dL Red Cell Distribution Width 14.1 11.8-14.3 % Platelet Count 284 140-450 10^3/uL Mean Platelet Volume 8.4 6.9-10.8 fL Neutrophils (%) (Auto) 67.3 37.0-80.0 % Lymphocytes (%) (Auto) 22.1 10.0-50.0 % Monocytes (%) (Auto) 9.5 0.0-12.0 % Eosinophils (%) (Auto) 0.8 0.0-7.0 % Basophils (%) (Auto) 0.3 0.0-2.0 % Neutrophils # (Auto) 4.1 1.6-8.6 10 ^3/uL Lymphocytes # (Auto) 1.4 0.4-5.4 10 ^3/uL Monocytes # (Auto) 0.6 0-1.3 10 ^3/uL Eosinophils # (Auto) 0.1 0-0.8 10 ^3/uL Basophils # (Auto) 0 0-0.2 10 ^3/uL Nucleated Red Blood Cells 0.1 % Sodium Level 141 136-145 mmol/L Potassium Level 3.3 L 3.5-5.1 mmol/L Chloride Level 105 98-107 mmol/L Carbon Dioxide Level 27 20-31 mmol/L Anion Gap 9 5-15 Blood Urea Nitrogen 19 9-23 mg/dL Creatinine 0.93 0.550-1.02 mg/dL Glomerular Filtration Rate Calc 69 >90 mL/min BUN/Creatinine Ratio 20.4 H 10.0-20.0 Serum Glucose 84 74-106 mg/dL Hemoglobin A1c 4.8 <5.7 % A1C Calcium Level 10.3 8.7-10.4 mg/dL Total Bilirubin 0.8 0.2-1.0 mg/dL Aspartate Amino Transferase (AST) 52 H 13-40 U/L Alanine Aminotransferase (ALT) 40 7-40 U/L Alkaline Phosphatase 78 46-116 U/L Troponin I High Sensitivity 7 </=34 ng/L Total Protein 7.3 5.7-8.2 g/dL Albumin 5.3 H 3.2-4.8 g/dL Vitamin B12 Level Pending Vitamin D 25-Hydroxy 80.8 30.0-100 ng/mL Urine Color Light-yellow Yellow Urine Clarity Clear Clear Urine pH 6.5 5.0-9.0 Urine Specific [place] 1.007 1.001-1.035 Urine Protein Negative Negative Urine Ketones Negative Negative Urine Blood Negative Negative /uL Urine Nitrite Negative Negative Urine Bilirubin Negative Negative Urine Urobilinogen Normal Negative mg/dL Urine Leukocyte Esterase Negative Negative /uL Urine RBC None seen 0 - 4 /hpf Urine Microscopic WBC 1 0-5 /HPF Urine Squamous Epithelial Cells Few <5 /hpf Urine Bacteria None seen None Seen /hpf Urine Glucose Normal Normal mg/dL [place] [address] Ph: [phone] DIAGNOSTIC IMAGING Diagnostic Imaging Report : [id number] Signed PATIENT: SUKHDEEP MACKAY ACCT: [id number] UNIT: [id number] : 1960 LOC: ER ROOM / BED: / AGE / SEX: 64 / F ADM STATUS: REG ER SERVICE [id number] ORDERING PHYSICIAN: TRACE RODRIGUEZ DO PROCEDURE(s): ABPL - CT AB PEL WO CON-NO ORAL OR IV REASON: R lower ribcage/flank pain injury ORDER NUMBER(s): [id number], ACCESSION NUMBER(s): [id number] CT CT AB PEL WO CON-NO ORAL OR IV INDICATION: R lower ribcage/flank pain injury EXAM DATE: 03/24/2025 12:01 PM COMPARISON: CT CT AB PEL WO CON-NO ORAL OR IV on DOS: 01/18/24 RADIATION DOSE: CTDIvol: 5 mGy, DLP: 252 mGy*cm PROCEDURE: Helical CT images were obtained of the abdomen and pelvis without IV contrast Sagittal and coronal reconstructions are provided. ORAL CONTRAST: None. ADDITIONAL IMAGES / REFORMATS: None All CT scans at this medical facility are performed using dose modulation techniques as appropriate to a performed exam including the following: Automated exposure control was utilized; adjustment of the MA and/or KV according to patient size; and use of iterative reconstruction technique. FINDINGS: LUNG BASE: Normal. LIVER: Normal. GALLBLADDER AND BILIARY TREE: No calcified gallstones. Normal caliber wall. No intra- or extrahepatic biliary ductal dilation. PANCREAS: Normal. SPLEEN: Normal. BOWEL: Small hiatal hernia.. Appendix not seen. ADRENALS: Normal. KIDNEYS AND URETER: Normal. BLADDER: Normal. REPRODUCTIVE ORGANS: Absent uterus. LYMPH NODES:No lymphadenopathy. PERITONEUM: No ascites or free air. No other fluid collection. VESSELS: Scattered atherosclerotic calcifications are noted. RETROPERITONEUM: Normal. ABDOMINAL WALL: Normal. BONES: Scattered osseous degenerative changes are noted. IMPRESSION: No acute intraabdominal abnormality. [place] [address] Ph: [phone] DIAGNOSTIC IMAGING Diagnostic Imaging Report : [id number] Signed PATIENT: SUKHDEEP MACKAY ACCT: [id number] UNIT: [id number] : 1960 LOC: ER ROOM / BED: / AGE / SEX: 64 / F ADM STATUS: REG ER SERVICE [id number] ORDERING PHYSICIAN: TRACE RODRIGUEZ DO PROCEDURE(s): CXRP - CHEST PORTABLE REASON: R lower rib pain ORDER NUMBER(s): [id number], ACCESSION NUMBER(s): [id number] CHEST RADIOGRAPH Indication: R lower rib pain Technique: Single frontal view of the chest was obtained COMPARISON: XY CHEST PORTABLE on DOS: 10/15/24, CHEST PORTABLE on DOS: 06/11/21 FINDINGS: Lines and Tubes: None Lungs: Clear Pleura: No effusion. No pneumothorax. Cardiomediastinal contours: Unremarkable Bones: Unremarkable IMPRESSION: No acute disease. Time of 1ST Reevaluation: 12:32 Reevaluation 1ST: Unchanged Patient Education/Counseling: Diagnosis, Treatment Family Education/Counseling: No Family Present Comments MDM: patient presented with the above HPI.---ribcage/flank pain---workup was initiated. patient was found with the above mentioned diagnosis. the following medications were ordered: please refer to order lists of meds and tests obtained by myself Dr. Rodriguez. Patient ED course and VS have been stabilized. Patient has been reassessed in e ED and remained in a stable condition. Pertinent incidental findings were discussed with the patient and/or family. Patient/family voices understanding and is agreeable with plan. Patient has been observed in the ED adequate length of time to insure improvement/stability. Escalation of care considered: Consideration of escalation to observation or admission Workup has been unrevealing however patient is in acute distress in pain. Patient was ADMITTED to the medicine team for further evaluation and treatment of their presentation. All the reports of any imaging studies that were ordered by myself were reviewed by myself. SEPSIS Sepsis Screen Physician Orders Ct Ab Pel Wo Con-No Oral Or Iv (03/24/25 11:57) Chest Portable (03/24/25 12:48) Vital Signs Date Time Temp Pulse Resp B/P (MAP) Pulse Ox O2 Delivery O2 Flow Rate FiO2 03/24/25 14:37 97.7 69 20 130/84 (99) 100 97.7 03/24/25 14:37 69 20 100 Room Air 03/24/25 12:13 98.0 98 24 155/103 (120) 99 98.0 Laboratory Tests Test 03/24/25 14:02 White Blood Count 6.2 10^3/uL (4.4-10.8) Departure 1 Departure Time of Disposition: 15:21 Impression: Primary Impression: Right flank pain Additional Impression: Sprain, ribs Disposition: 09 ADMITTED INPATIENT Admit to: Tele Condition: Guarded Discharged With: Self Critical Care Note Critical Care Time?: No I personally scribed for TRACE RODRIGUEZ DO ([email or web address]) on 03/24/25 at 12:03. Edie ctronically submitted by Anali Foreman ([employer]). I personally scribed for TRACE RODRIGUEZ DO ([email or web address]) on 03/24/25 at 12:05. E lectronically submitted by Anali Foreman ([employer]). I personally scribed for TRCAE RODRIGUEZ DO (DVFARMI) on 03/24/25 at 12:05. Electronically submitted by Anali Foreman ([employer]). I personally scribed for TRACE RODRIGUEZ DO ([email or web address]) on 03/24/25 at 13:56. Electronically submitted by Anali Foreman ([employer]). I personally scribed for TRACE RODRIGUEZ DO ([email or web address]) on 03/24/25 at 13:56. Electronically submitted by Anali Foreman ([employer]). I personally scribed for TRACE RODRIGUEZ DO ([email or web address]) on 03/24/25 at 13:57. Electronically submitted by Anali Foreman ([employer]). I personally scribed for TRACE RODRIGUEZ DO (DVFARMI) on 03/24/25 at 15:03. Electronically submitted by Anali Foreman ([employer]). I personally scribed for TRACE RODRIGUEZ DO ([email or web address]) on 03/24/25 at 16:55. Electronically submitted by Anali Foreman ([employer]). TRACE RODRIGUEZ DO Mar 24, 2025 12:03
--- NOTE | 2025-03-24 12:38 | DVH ---
CT CT AB PEL WO CON-NO ORAL OR IV INDICATION: R lower ribcage/flank pain injury EXAM DATE: 03/24/2025 12:01 PM COMPARISON: CT CT AB PEL WO CON-NO ORAL OR IV on DOS: 01/18/24 RADIATION DOSE: CTDIvol: 5 mGy, DLP: 252 mGy*cm PROCEDURE: Helical CT images were obtained of the abdomen and pelvis without IV contrast Sagittal and coronal reconstructions are provided. ORAL CONTRAST: None. ADDITIONAL IMAGES / REFORMATS: None All C T scans at this medical facility are performed using dose modulation techniques as appropriate to a p erformed exam including the following: Automated exposure control was utilized; adjustment of the MA and/or KV according to patient size; and use of iterative reconstruction technique. FINDINGS: LUNG BASE: Normal. LIVER: Normal. GALLBLADDER AND BILIARY TREE: No calcified gallstones. Normal caliber wall. No intra- or extrahepatic biliary ductal dilation. PANCREAS: Normal. SPLEEN: Normal. BOWEL: Small hiatal hernia.. Appendix not seen. ADRENALS: Normal. KIDNEYS AND URETER: Normal. BLADDER: Normal. REPRODUCTIVE ORGANS: Absent uterus. LYMPH NODES:No lymphadenopathy. PERITONEUM: No ascites or free air. No other fluid collection. VESSELS: Scattered atherosclerotic calcifications are noted. RETROPERITONEUM: Normal. ABDOMINAL WALL: Normal. BONES: Scattered osseous degenerative changes are noted. IMPRESSION: No acute intraabdominal abnormality.
--- NOTE | 2025-03-24 13:13 | DVH ---
CHEST RADIOGRAPH Indication: R lower rib pain Technique: Single frontal view of the chest was obtained COMPARISON: XY CHEST PORTABLE on DOS: 10/15/24, CHEST PORTABLE on DOS: 06/11/21 FINDINGS: Lines and Tubes: None Lungs: Clear Pleura: No effusion. No pneumothorax. Cardiomediastinal contours: Unremarkable Bones: Unremarkable IMPRESSION: No acute disease.
[2025-03-24 14:12] LABS: Hematocrit 43.0 % (36.0-46.0); Hemoglobin 14.5 g/dL (12.2-16.2); Mean Corpuscular Hemoglobin 31.7 pg (28.0-32.0); Mean Corpuscular Volume 94.0 fL (80.0-100.0); Nucleated Red Blood Cells % 0.1 %
[2025-03-24 14:29] LABS: Alanine Aminotransferase 40 U/L (7-40); Alkaline Phosphatase 78 U/L (46-116); Anion Gap 9 (5-15); BUN/Creatinine Ratio 20.4 (10.0-20.0); Bilirubin, Total 0.8 mg/dL (0.2-1.0); Blood Urea Nitrogen 19 mg/dL (9-23); Calcium 10.3 mg/dL (8.7-10.4); Carbon Dioxide 27 mmol/L (20-31); Chloride 105 mmol/L (98-107); Glucose 84 mg/dL (74-106); Sodium 141 mmol/L (136-145); Total Protein 7.3 g/dL (5.7-8.2)
[2025-03-24 14:34] LABS: Albumin 5.3 g/dL (3.2-4.8); Potassium 3.3 mmol/L (3.5-5.1)
[2025-03-24 15:14] LABS: Urine Protein, UAD Negative (Negative)
[2025-03-24] MEDS: KETOROLAC TROMETH 30 MG/ML 1ML VIAL IV ONE (15:30)
[2025-03-24] MEDS ORDERED: ONDANSETRON ODT 4 MG TAB PO PRN (17:00)
--- NOTE | 2025-03-24 17:10 | DVHHPRES ---
History of Present Illness Resident Creating Document: FERNANDEZ CORDOBA RESIDENT History of Present Illness This is a 64 year old female with past medical history of CAD, status post PTCA x2, osteoporosis, breast cancer, hypertension, hypothyroidism, chronic back pain, presented to the ED with a chief complaint of right flank pain since 2 days prior to this admission. According to the patient she was bending down over the trash can and heard a pop sound and started having right rib pain radiate down to the flanks, getting worse that prompted this visit. She denied nausea, vomiting, shortness of breath, chest pain, abdominal pain or any changes in bowel and bladder . Past Medical History CAD, osteoporosis, breast cancer, hypertension, hypothyroidism, chronic back pain, Past Surgical History Tonsillectomy, Hysterectomy, Shoulder, Knee, Wrist, Foot surgery, Hiatal Hernia, PTCAX2, Carpel Tunnel, Breast Lumpectomy Family History None Past Social History Lives with boyfriend Smoke vapes, nonalcoholic and never used any other drugs Review of Systems Constitutional: No: Fever, Chills, Sweats, Weakness, Malaise, Other Eyes: No: Pain, Vision change, Conjunctivae inflammation, Eyelid inflammation, Other, Redness ENT: No: Ear pain, Ear discharge, Nose pain, Nose discharge, Nose congestion, Mouth pain, Mouth swelling, Throat pain, Throat swelling, Other Respiratory: Shortness of breath Cardiovascular: No: Chest Pain, Palpitations, Orthopnea, Paroxysmal Noc. Dyspnea, Edema, Lt Headedness, Other Gastrointestinal: No: Nausea, Vomiting, Abdominal Pain, Diarrhea, Constipation, Melena, Hematochezia, Other Genitourinary: No Dysuria, No Frequency, No Incontinence, No Hematuria, No Retention, No Other Musculoskeletal: No: other, neck pain, shoulder pain, arm pain, back pain, hand pain, leg pain, foot pain Skin: No: Rash, Lesions, Jaundice, Bruising, Other Neurological: No: Weakness, Numbness, Incoordination, Change in speech, Confusion, Seizures, Other Allergies: Coded Allergies: Sulfa Drugs (Verified Allergy, Intermediate, RASH, 04/06/23) Sulfa Antibiotics (Unverified Allergy, Unknown, 04/06/23) Hydromorphone (Verified Adverse Reaction, Intermediate, ITCHING, 04/06/23) Medications Current Medications Medications Dose Ordered Sig/Errol Route Start Time Stop Time Status Last Admin Dose Admin Ketorolac Tromethamine 15 mg Q6HPRN IV 03/24/25 18:00 03/29/25 17:59 UNV Famotidine 20 mg BID PO 03/24/25 22:00 UNV Bupropion HCl 150 mg DAILY PO 03/25/25 10:00 UNV Clopidogrel Bisulfate 75 mg DAILY PO 03/25/25 10:00 UNV EZETIMIBE 10 mg DAILY PO 03/25/25 10:00 UNV Levothyroxine Sodium 50 mcg QAM PO 03/25/25 07:00 UNV Ondansetron HCl 4 mg Q8HPRN PRN PO 03/24/25 17:00 UNV Pregabalin 75 mg BID PO 03/24/25 22:00 UNV Ranolazine 500 mg BID PO 03/24/25 22:00 UNV Exam Vital Signs Vital Signs Date Time Temp Pulse Resp B/P (MAP) Pulse Ox O2 Delivery O2 Flow Rate FiO2 03/24/25 16:52 97.9 70 20 157/77 (103) 100 97.9 03/24/25 14:37 Room Air Exam Physical examination: General Appearance: Alert, Oriented X3, Cooperative, mild distress HEENT: Atraumatic, PERRLA, EOMI, Mucous membrane moist/pink Respiratory: Clear to auscultation, Normal air movement Cardiovascular: tenderness below the rt rib cage ,Regular rate, Normal S1, Normal S2, No murmurs, no chest wall tenderness Abdominal: Normal bowel sounds, Soft, No tenderness, No hepatospenomegaly, No masses Extremities: No clubbing, No cyanosis, No edema, Normal pulses, No tenderness/swelling Skin: No rashes, No breakdown, No significant lesion Neuro: Normal speech, Strength at 5/5 X4 ext, Normal tone, Sensation intact, Cranial nerves 3-12 NL, Reflexes 2+ Psych/Mental Status: Mental status NL, Mood NL Labs/Xrays Labs Test 03/24/25 14:05 03/24/25 14:02 03/24/25 13:10 Range/Units White Blood Count 6.2 4.4-10.8 10^3/uL Red Blood Count 4.57 4.0-5.20 10^6/uL Hemoglobin 14.5 12.2-16.2 g/dL Hematocrit 43.0 36.0-46.0 % Mean Corpuscular Volume 94.0 80.0-100.0 fL Mean Corpuscular Hemoglobin 31.7 28.0-32.0 pg Mean Corpuscular Hemoglobin Concent 33.7 32.0-36.0 g/dL Red Cell Distribution Width 14.1 11.8-14.3 % Platelet Count 284 140-450 10^3/uL Mean Platelet Volume 8.4 6.9-10.8 fL Neutrophils (%) (Auto) 67.3 37.0-80.0 % Lymphocytes (%) (Auto) 22.1 10.0-50.0 % Monocytes (%) (Auto) 9.5 0.0-12.0 % Eosinophils (%) (Auto) 0.8 0.0-7.0 % Basophils (%) (Auto) 0.3 0.0-2.0 % Neutrophils # (Auto) 4.1 1.6-8.6 10 ^3/uL Lymphocytes # (Auto) 1.4 0.4-5.4 10 ^3/uL Monocytes # (Auto) 0.6 0-1.3 10 ^3/uL Eosinophils # (Auto) 0.1 0-0.8 10 ^3/uL Basophils # (Auto) 0 0-0.2 10 ^3/uL Nucleated Red Blood Cells 0.1 % Sodium Level 141 136-145 mmol/L Potassium Level 3.3 L 3.5-5.1 mmol/L Chloride Level 105 98-107 mmol/L Carbon Dioxide Level 27 20-31 mmol/L Anion Gap 9 5-15 Blood Urea Nitrogen 19 9-23 mg/dL Creatinine 0.93 0.550-1.02 mg/dL Glomerular Filtration Rate Calc 69 >90 mL/min BUN/Creatinine Ratio 20.4 H 10.0-20.0 Serum Glucose 84 74-106 mg/dL Calcium Level 10.3 8.7-10.4 mg/dL Total Bilirubin 0.8 0.2-1.0 mg/dL Aspartate Amino Transferase (AST) 52 H 13-40 U/L Alanine Aminotransferase (ALT) 40 7-40 U/L Alkaline Phosphatase 78 46-116 U/L Troponin I High Sensitivity 7 </=34 ng/L Total Protein 7.3 5.7-8.2 g/dL Albumin 5.3 H 3.2-4.8 g/dL Urine Color Light-yellow Yellow Urine Clarity Clear Clear Urine pH 6.5 5.0-9.0 Urine Specific [place] 1.007 1.001-1.035 Urine Protein Negative Negative Urine Ketones Negative Negative Urine Blood Negative Negative /uL Urine Nitrite Negative Negative Urine Bilirubin Negative Negative Urine Urobilinogen Normal Negative mg/dL Urine Leukocyte Esterase Negative Negative /uL Urine RBC None seen 0 - 4 /hpf Urine Microscopic WBC 1 0-5 /HPF Urine Squamous Epithelial Cells Few <5 /hpf Urine Bacteria None seen None Seen /hpf Urine Glucose Normal Normal mg/dL SEPSIS Sepsis Screen Date sepsis recognized/suspect: Mar 24, 2025 Time Sepsis recognized/suspect: 1148 Recent Procedure: No On Antibiotic Therapy: No Respiratory Rate >20: No Heart Rate >90: No Temp<36 C (96.8 F) or >38.3 C: No SBP <90 or MAP <65 mmHG: No New Acute Mental Status Change: No Is the patient on CPAP, BIPAP,: No Physician Orders Ct Ab Pel Wo Con-No Oral Or Iv (03/24/25 11:57) Chest Portable (03/24/25 12:48) Admit (03/24/25 16:34) Potassium Effervesent Tab (Klor-Con/Ef) (03/24/25 16:45) Ketorolac Injection (Toradol Injection) (03/24/25 18:00) Famotidine Tablet (Pepcid Tablet) (03/24/25 22:00) Thyroid Stimulating Hormone (03/24/25 16:44) Bupropion Tablet (Wellbutrin Tablet) (03/25/25 10:00) Clopidogrel Bisulfate (Plavix) (03/25/25 10:00) Ezetimibe (Zetia) (03/25/25 10:00) Levothyroxine Tablet (Synthroid Tablet) (03/25/25 07:00) Ondansetron Po (Zofran Po) (03/24/25 17:00) Pregabalin Capsule (Lyrica Capsule) (03/24/25 22:00) Ranolazine (Ranexa Er) (03/24/25 22:00) Vital Signs Date Time Temp Pulse Resp B/P (MAP) Pulse Ox O2 Delivery O2 Flow Rate FiO2 03/24/25 16:52 97.9 70 20 157/77 (103) 100 97.9 03/24/25 14:37 97.7 69 20 130/84 (99) 100 97.7 03/24/25 14:37 69 20 100 Room Air 03/24/25 12:13 98.0 98 24 155/103 (120) 99 98.0 Laboratory Tests Test 03/24/25 14:02 White Blood Count 6.2 10^3/uL (4.4-10.8) Medications Medications Dose Ordered Sig/Errol Route Start Time Stop Time Status Last Admin Dose Admin Ketorolac Tromethamine 15 mg ONCE ONCE IV 03/24/25 15:30 03/24/25 15:35 DC 03/24/25 15:30 15 MG Assessment/Plan Assessment/Plan Assessment and plan: # Rule out rib fracture # History of osteoporosis - chest x-ray revealed normal study - ordered unilateral right rib x-ray to rule out rib fracture - IV Toradol 15 mg q.6 p.r.n. # Hypokalemia - Replenished # Chronic hypothyroidism - Levothyroxine 50 mcg at q.a.m. # Coronary artery disease, status post PTCA x2 # Hyperlipidemia # Hypertensive heart disease - Continue home medications - Ordered echo # History of anxiety/ depression - Bupropion 150 mg p.o. daily # PUD prophylaxis - Pepcid 20 mg p.o. b.i.d. # DVT prophylaxis - Lovenox 40 mg sc daily Goal of care discussed with the patient for more than 20 minutes full code Plan discussed with Dr. Hillman Plan discussed with: Patient, Other My Orders Orders - FERNANDEZ CORDOBA RESIDENT Procedure Category Date Status Time Admit ADMIT 03/24/25 Transmitted 16:34 Potassium Effervesent PHA 03/24/25 Logged Tab (Klor-Con/Ef) 16:45 Ketorolac Injection PHA 03/24/25 Logged (Toradol Injection) 18:00 Famotidine Tablet PHA 03/24/25 Logged (Pepcid Tablet) 22:00 Thyroid Stimulating LAB 03/24/25 In Process Hormone 16:44 Bupropion Tablet PHA 03/25/25 Logged (Wellbutrin Tablet) 10:00 Clopidogrel Bisulfate PHA 03/25/25 Logged (Plavix) 10:00 Ezetimibe (Zetia) PHA 03/25/25 Logged 10:00 Levothyroxine Tablet PHA 03/25/25 Logged (Synthroid Tablet) 07:00 Ondansetron Po PHA 03/24/25 Logged (Zofran Po) 17:00 Pregabalin Capsule PHA 03/24/25 Logged (Lyrica Capsule) 22:00 Ranolazine (Ranexa Er) PHA 03/24/25 Logged 22:00 Date of Service: Mar 24, 2025 Billing Provider: AZAR HILLMAN MD Common Visit Codes: [id number] INP/OBS CARE (HIGH) FERNANDEZ CORDOBA RESIDENT Mar 24, 2025 17:10
[2025-03-24] MEDS: POTASSIUM EFFERVESENT TAB 25 MEQ PO ONE (17:21)
--- NOTE | 2025-03-24 20:33 | DVH ---
CLINICAL INDICATION: Rt rib pain TECHNIQUE: 5 radiographic views of the right ribs were obtained. Comparison: None FINDINGS/IMPRESSION: There are no displaced rib fractures. There is no pneumothorax or pleural effusions. Single view of the chest appears normal
[2025-03-24] MEDS: PREGABALIN CAPSULE 75 MG CAP PO SCH (22:54)
[2025-03-24] MEDS: FAMOTIDINE 20 MG TAB PO SCH (22:55)
[2025-03-24] MEDS: RANOLAZINE ER 500 MG TAB PO SCH (22:55)
[2025-03-24 22:59] VITALS: PULSE 70; RESP 18; O2SAT 100
[2025-03-24 23:55] VITALS: BP 142/88; PULSE 60; PULSE 67; RESP 17; RESP 20; TEMP 98.2; O2SAT 96; O2SAT 97
[2025-03-25] VITALS (7 sets, daily range): BP systolic 127–168; BP diastolic 80–95; PULSE 59–70; RESP 17–20; TEMP 97.6–98.2; O2SAT 98–99
[2025-03-25] MEDS ORDERED: SERT25TA84 PO (00:13)
[2025-03-25] MEDS: KETOROLAC TROMETH 30 MG/ML 1ML VIAL IV PRN (00:21)
[2025-03-25] MEDS: MORPHINE SULFATE INJ 2 MG/ml SYRG IV ONE (04:39)
[2025-03-25] MEDS: LEVOTHYROXINE SODIUM 50 MCG TAB PO SCH (06:01)
[2025-03-25] MEDS: CLOPIDOGREL BISULFATE 75 MG TAB PO SCH (09:44)
[2025-03-25] MEDS: EZETIMIBE 10 MG TAB PO SCH (09:45)
--- NOTE | 2025-03-25 18:56 | DVHPN2 ---
Subjective Still right lower ribs and flank pain. Patient takes Percocet at home and she is asking for it here Reviewed: Care Plan, H&P, Labs, Medications, Previous Orders, Radiology Changes from previous H/P or p: No Changes Respiratory: Shortness of breath Objective Vitals Vital Signs Date Time Temp Pulse Resp B/P (MAP) Pulse Ox O2 Delivery O2 Flow Rate FiO2 03/25/25 16:39 98.2 70 17 127/95 (106) 99 98.2 03/25/25 08:00 Room Air* 0 21 Intake/Output Intake and Output 03/25/25 07:00 Intake Total 300 ml Balance 300 ml Intake Oral 300 ml # Voids 2 General Appearance: Alert, Oriented X3, Cooperative, mild distress (Because of the pain when she moves) HEENT: Atraumatic Lungs: Clear to auscultation Cardiovascular: Regular rate Abdomen: Normal bowel sounds, Other (Some tenderness in the right sub costal area with palpation) Extremities: No edema Medications Current Medications Medications Dose Ordered Sig/Errol Route Start Time Stop Time Status Last Admin Dose Admin Ketorolac Tromethamine 15 mg Q6HPRN PRN IV 03/24/25 18:00 03/29/25 17:59 Hold 03/25/25 06:25 15 MG Famotidine 20 mg BID PO 03/24/25 22:00 03/25/25 09:45 20 MG Bupropion HCl 75 mg BID PO 03/24/25 22:00 03/25/25 09:44 75 MG Clopidogrel Bisulfate 75 mg DAILY PO 03/25/25 10:00 03/25/25 09:44 75 MG EZETIMIBE 10 mg DAILY PO 03/25/25 10:00 03/25/25 09:45 10 MG Levothyroxine Sodium 50 mcg QAM PO 03/25/25 07:00 03/25/25 06:01 50 MCG Ondansetron HCl 4 mg Q8HPRN PRN PO 03/24/25 17:00 Pregabalin 75 mg BID PO 03/24/25 22:00 03/25/25 09:44 75 MG Ranolazine 500 mg BID PO 03/24/25 22:00 03/25/25 09:44 500 MG Tramadol HCl 50 mg Q6HP PRN PO 03/25/25 13:00 03/25/25 13:56 50 MG Laboratory Results Laboratory Tests 03/24/25 14:02 Coagulation Test 03/25/25 15:44 D-Dimer, Quantitative 0.36 mg/L FEU (0.0-0.49) Urinalysis Test 03/24/25 13:10 Urine Color Light-yellow (Yellow) Urine Clarity Clear (Clear) Urine pH 6.5 (5.0-9.0) Urine Specific [place] 1.007 (1.001-1.035) Urine Protein Negative (Negative) Urine Ketones Negative (Negative) Urine Blood Negative /uL (Negative) Urine Nitrite Negative (Negative) Urine Bilirubin Negative (Negative) Urine Urobilinogen Normal mg/dL (Negative) Urine Leukocyte Esterase Negative /uL (Negative) Urine RBC None seen /hpf (0 - 4) Urine Microscopic WBC 1 /HPF (0-5) Urine Squamous Epithelial Cells Few /hpf (<5) Urine Bacteria None seen /hpf (None Seen) Urine Glucose Normal mg/dL (Normal) Assessment/Plan Assessment/Plan Right flank and ribs pain/status post sprain/no fractures Chronic back pain and chronic pain syndrome History of coronary artery disease and stents placement Hypertension Elevated liver function tests History of breast cancer Hypothyroidism Atherosclerotic vascular disease Plan: We will check D-dimer if positive we will go ahead and order chest CT angiogram. Tramadol for pain. Further plan per orders Plan discussed with: Patient My Orders Orders - LUCIANO LOGAN MD Procedure Category Date Status Time Tramadol Hcl (Ultram) PHA 03/25/25 In Process 13:00 Date of Service: Mar 25, 2025 Billing Provider: LUCIANO LOGAN MD Common Visit Codes: [id number] INP/OBS CARE(HIGH) LUCIANO LOGAN MD Mar 25, 2025 18:56
[2025-03-26 01:00] VITALS: BP 145/90; PULSE 66; RESP 18; TEMP 97.8; O2SAT 97
[2025-03-26 05:00] VITALS: BP 132/73; PULSE 65; RESP 18; TEMP 98.1; O2SAT 98
[2025-03-26 08:16] VITALS: PULSE 69; RESP 18; O2SAT 100
[2025-03-26 08:51] VITALS: BP 127/92; PULSE 69; RESP 18; TEMP 98; O2SAT 100
[2025-03-26 13:00] VITALS: BP 150/90; PULSE 69; RESP 18; TEMP 98.4; O2SAT 98
--- NOTE | 2025-03-26 15:52 | DVHDS2 ---
Discharge Summary Date of Admission Mar 24, 2025 at 16:34 Date of Discharge: Mar 26, 2025 Admitting Diagnosis Right flank and rib pain Labs/Diagnostic Data: Laboratory Results Test 03/25/25 15:44 03/24/25 14:05 03/24/25 14:02 03/24/25 13:10 D-Dimer, Quantitative 0.36 mg/L FEU (0.0-0.49) Thyroid Stimulating Hormone (TSH) 5.09 uIU/mL (0.55-4.78) White Blood Count 6.2 10^3/uL (4.4-10.8) Red Blood Count 4.57 10^6/uL (4.0-5.20) Hemoglobin 14.5 g/dL (12.2-16.2) Hematocrit 43.0 % (36.0-46.0) Mean Corpuscular Volume 94.0 fL (80.0-100.0) Mean Corpuscular Hemoglobin 31.7 pg (28.0-32.0) Mean Corpuscular Hemoglobin Concent 33.7 g/dL (32.0-36.0) Red Cell Distribution Width 14.1 % (11.8-14.3) Platelet Count 284 10^3/uL (140-450) Mean Platelet Volume 8.4 fL (6.9-10.8) Neutrophils (%) (Auto) 67.3 % (37.0-80.0) Lymphocytes (%) (Auto) 22.1 % (10.0-50.0) Monocytes (%) (Auto) 9.5 % (0.0-12.0) Eosinophils (%) (Auto) 0.8 % (0.0-7.0) Basophils (%) (Auto) 0.3 % (0.0-2.0) Neutrophils # (Auto) 4.1 10 ^3/uL (1.6-8.6) Lymphocytes # (Auto) 1.4 10 ^3/uL (0.4-5.4) Monocytes # (Auto) 0.6 10 ^3/uL (0-1.3) Eosinophils # (Auto) 0.1 10 ^3/uL (0-0.8) Basophils # (Auto) 0 10 ^3/uL (0-0.2) Nucleated Red Blood Cells 0.1 % Sodium Level 141 mmol/L (136-145) Potassium Level 3.3 mmol/L (3.5-5.1) Chloride Level 105 mmol/L (98-107) Carbon Dioxide Level 27 mmol/L (20-31) Anion Gap 9 (5-15) Blood Urea Nitrogen 19 mg/dL (9-23) Creatinine 0.93 mg/dL (0.550-1.02) Glomerular Filtration Rate Calc 69 mL/min (>90) BUN/Creatinine Ratio 20.4 (10.0-20.0) Serum Glucose 84 mg/dL (74-106) Hemoglobin A1c 4.8 % A1C (<5.7) Calcium Level 10.3 mg/dL (8.7-10.4) Total Bilirubin 0.8 mg/dL (0.2-1.0) Aspartate Amino Transferase (AST) 52 U/L (13-40) Alanine Aminotransferase (ALT) 40 U/L (7-40) Alkaline Phosphatase 78 U/L (46-116) Troponin I High Sensitivity 7 ng/L (</=34) Total Protein 7.3 g/dL (5.7-8.2) Albumin 5.3 g/dL (3.2-4.8) Vitamin D 25-Hydroxy 80.8 ng/mL (30.0-100) Urine Color Light-yellow (Yellow) Urine Clarity Clear (Clear) Urine pH 6.5 (5.0-9.0) Urine Specific [place] 1.007 (1.001-1.035) Urine Protein Negative (Negative) Urine Ketones Negative (Negative) Urine Blood Negative /uL (Negative) Urine Nitrite Negative (Negative) Urine Bilirubin Negative (Negative) Urine Urobilinogen Normal mg/dL (Negative) Urine Leukocyte Esterase Negative /uL (Negative) Urine RBC None seen /hpf (0 - 4) Urine Microscopic WBC 1 /HPF (0-5) Urine Squamous Epithelial Cells Few /hpf (<5) Urine Bacteria None seen /hpf (None Seen) Urine Glucose Normal mg/dL (Normal) Other Laboratory Tests 03/24/25 14:02 Brief Hx & Hospital Course: 64-year-old lady brought to the emergency room because of right flank and lower rib pain status post banding episode. X-rays showed no fractures. Abdominal CT showed no acute abnormality. Patient takes Percocet at home for chronic low back pain. CBC was normal. Urinalysis was normal. Potassium was low and it was replaced. Patient feels better and ready to go home. She was instructed to follow up with the PCP and to do more investigation if the pain continues and to look for any rash to suggest shingles . Condition at Discharge: Good Final Diagnosis/Problems List Right flank pain Right lower ribs pain Chronic back pain Coronary artery disease and history of stent placement Hypertension History of breast cancer Hypothyroidism Atherosclerotic vascular disease Elevated liver function tests with AST 52 Discharge Disposition: Home Discharge Instruct/Medications Diet: Regular Activity: No Restrictions, As Tolerated Follow Up/Referral: PCP within one week Medications: Resume previous home medications. Tylenol 500 and ibuprofen 400 mg 3 times a day as needed for pain/[id number] Scheduled Alendronate Sodium (Alendronate Sodium), 1 TAB PO QWEEKLY, (Reported) Atorvastatin Calcium (Atorvastatin Calcium), 1 TAB PO DAILY, (Reported) Bupropion Hcl (Bupropion Hcl), 150 MG PO DAILY, (Reported) Cephalexin Monohydrate (Cephalexin), 1 CAP PO QID Cholecalciferol (Vitamin D3), 2,000 UNIT OR DAILY, (Reported) Clopidogrel Bisulfate (Clopidogrel), 75 MG PO DAILY, (Reported) Ezetimibe (Zetia), 1 TAB PO DAILY, (Reported) Famotidine (Pepcid Tablet), 1 TAB PO BID Folic Acid (Folic Acid), 1 MG PO DAILY, (Reported) Levothyroxine Sodium (Levothyroxine Sodium), 50 MCG PO QAM, (Reported) Methotrexate (Methotrexate), 12.5 MG PO QWEEKLY, (Reported) Oxycodone W/ Acetaminophen (Apap/Oxycodone), 1 TAB PO TID, (Reported) Pantoprazole Sodium (Pantoprazole Sodium), 40 MG PO DAILY, (Reported) Pregabalin (Lyrica), 1 CAP PO BID, (Reported) Ranolazine (Ranolazine ER), 500 MG PO BID, (Reported) Sertraline Hcl (Zoloft), 1 TAB PO DAILY, (Reported) Topiramate (Topiramate), 100 MG PO BID, (Reported) Trazodone Hcl (Trazodone Hcl), 1 TAB PO QPM, (Reported) Scheduled PRN Dicyclomine Hcl (Dicyclomine Hcl), 10 MG PO for CRAMPS, (Reported) Ondansetron Odt 4MG Tab (Zofran Po), 1 TAB PO Q8HPRN PRN 35 Discharge Statement: "Patient was advised to return to the ER or call 911 if any headaches, dizziness, shortness of breath, chest pain, abdominal pain, bleeding, fevers, or worsening of medical condition. Patient was counseled about treatment plan, medications, possible side effects, patientverbalized understanding. All questions were answered to the best of my ability. This discharge took greater then 30 minutes in planning, reviewing documentation, counseling the patient, and discussing with other team members." ASSESSMENT ASSESSMENT Assessment Date of Service: Mar 26, 2025 Billing Provider: LUCIANO LOGAN MD Common Visit Codes: [id number] DISCH DAY >30min LUCIANO LOGAN MD Mar 26, 2025 15:52
--- NOTE | 2025-03-26 16:31 | DVHSR ---
APPROVED REPORT EXAM: Two-dimensional and M-mode echocardiogram with Doppler and color Doppler. Blood Pressure: 143/72 mmHg INDICATION Coronary artery disease RISK FACTORS Height: 5'1", Weight: 113 DIMENSIONS LVDd4.0 (3.8-5.7cm)LA (2D)3.7 (1.9-4.0cm)Aortic Root3.2 (2.0-3.7cm) LVDs2.7 (2.5-4.0cm)LA (MM) (1.9-4.0cm)Aortic Cusp Exc1.6 (1.5-2.0cm) EF (%) 60.0 (55-70%)Rt. Atrium3.9 (1.9-4.0cm)Asc. Aorta cm IVSd1.0 (0.7-1.1cm)RV (D)3.1 (1.8-2.4cm) PWd0.9 (0.7-1.1cm) Mitral Valve MitralMitral Stenosis E wave1.02m/sMV Mean GR.mmHg A wave1.00m/sMV Peak GR.mmHg E/A ratio1.02D MVAcm2 DECEL [id number] 1/2 Timems Aortic Valve Aortic ValveAortic Stenosis V10.97m/Viktoriya Mean GR.3mmHg V21.25m/Viktoriya Peak GR.6mmHg LVOT Diameter1.8 (1.8-2.4cm)Doppler AVA1.97cm2 Pulmonic Valve V21.03m/s Tricuspid Valve TR Velocity2.54m/s [id number] Conclusion Technically good study. Sinus rhythm. Concentric LVH with enlarged left atrium and aortic root. Valves are normal. EF of 60% with normal RV function. Mild tricuspid regurgitation. Mild pulmonic insufficiency. No pericardial effusion masses or vegetations.
[2025-03-26 16:33] VITALS: BP 124/79; PULSE 75; RESP 18; TEMP 98.4; O2SAT 97
== END 2025-03-26 16:24 | disposition home or self-care (01) | DRG 203 ==
LOC: ER 11:56 → OVERFLOW 16:34 → CENTRAL 23:38
PROVIDERS: ATTEND Emergency Medicine
DX: M94.0 Chondrocostal junction syndrome [Tietze] (principal); E03.9 Hypothyroidism, unspecified; I25.10 Atherosclerotic heart disease of native coronary artery without angina pectoris; E87.6 Hypokalemia; M81.0 Age-related osteoporosis without current pathological fracture; E78.5 Hyperlipidemia, unspecified; F41.9 Anxiety disorder, unspecified; G89.4 Chronic pain syndrome; I10 Essential (primary) hypertension; Z85.3 Personal history of malignant neoplasm of breast; Z87.891 Personal history of nicotine dependence; Z95.5 Presence of coronary angioplasty implant and graft; Z90.710 Acquired absence of both cervix and uterus; X58.XXXA Exposure to other specified factors, initial encounter; Y93.89 Activity, other specified; Y92.89 Other specified places as the place of occurrence of the external cause; Y99.8 Other external cause status; R10.9 Unspecified abdominal pain
CPT/HCPCS: 36415; 71045; 71101; 74176; 80053; 81001; 82306; 82607; 83036; 84443; 84484; 85025; 85379; 93306; 96374; G0378; J1885

== ENCOUNTER 2025-08-14 08:28 | Inpatient (IN) | payer MEDICAID ==
[~2025-08-14] VITALS: Ht 154.9 cm; Wt 70.0 kg
[~2025-08-14 08:28] MED LIST changes: +SERT25TA84 PO
--- NOTE | 2025-08-14 09:50 | DVH ---
CLINICAL INDICATION: fall injury TECHNIQUE: XY R ANKLE 3 VIEW COMPARISON: XY R FOOT 3 VIEW XRAY on DOS: 05/31/23 FINDINGS/IMPRESSION: : Moderately displaced fracture of the distal fibula and medial malleolus. There is mild widening of the ankle mortise. Severe diffuse soft-tissue swelling and edema.
--- NOTE | 2025-08-14 10:10 | ED.PDOC ---
Musculoskeletal HPI Comments The patient presents for evaluation after tripping over a shoe and falling in the bedroom approximately several hours before this visit. The patient reports tripping (not losing balance), landing on a shoe, and did not hit their head. The patient reports hearing a snap at the time of injury, followed by pain and the sensation that the toes moved all the way down. The patient is unable to dorsiflex the ankle due to pain but can move their toes, including some movement of the big toe. The patient does not report vomiting and did not tumble downstairs. The patient is taking aspirin. No family history, allergies, or social history were provided. Not able to bear weight Denies previous surgeries to the ankle Denies redness around the ankle Denies fever chills night sweats nausea vomiting Chief Complaint: Lower Extremity Time Seen by MD: 10:00 Primary Care Provider: UNKNOWN Reviewed Notes: Nurses Notes, Medications, Allergies Allergies: Coded Allergies: Sulfa Drugs (Verified Allergy, Intermediate, RASH, 04/06/23) Sulfa Antibiotics (Unverified Allergy, Unknown, 04/06/23) Hydromorphone (Verified Adverse Reaction, Intermediate, ITCHING, 04/06/23) Home Meds Active Scripts Famotidine (PEPCID TABLET) 20 Mg Tb, 1 TAB PO BID for 30 Days, #60 TAB Prov:ROSS PIERCE Q BAND SINGER 01/18/24 Ondansetron Odt 4MG Tab (ZOFRAN PO) 4 Mg Tb, 1 TAB PO Q8HPRN PRN, #10 TAB as needed for nausea vomiting ODT TAB-DISSOLVE IN MOUTH, THEN SWALLOW Prov:ROSS PIERCE Q BAND SINGER 01/18/24 Cephalexin Monohydrate (Cephalexin) 500 Mg Cap, 1 CAP PO QID for 10 Days, #40 CAP Prov:VIRGILIO PIERCEA Q BAND SINGER 01/18/24 Reported Medications Aripiprazole (Aripiprazole) 2 Mg Tab, 1 TAB PO 08/14/25 Sertraline Hcl (Zoloft) 25 Mg Tab, 1 TAB PO DAILY, #30 TAB 2 Refills 03/25/25 Ranolazine (Ranolazine ER) 500 Mg Tab, 500 MG PO BID for ANGINA, TAB 04/06/23 Ezetimibe (Zetia) 10 Mg Tab, 1 TAB PO DAILY for ANXIETY, #30 TAB 5 Refills 04/06/23 Oxycodone W/ Acetaminophen (Apap/Oxycodone) 1 Tab Tab, 1 TAB PO TID for TAKES 10/325 FOR PAIN, #90 TAB 04/06/23 Levothyroxine Sodium (Levothyroxine Sodium) 50 Mcg Tab, 50 MCG PO QAM for LOW THYROID for 30 Days, MCG 04/06/23 Pregabalin (Lyrica) 75 Mg Cap, 1 CAP PO BID for RESTLESS LEGS, #60 CAP 1 Refill 04/06/23 Atorvastatin Calcium (ATORVASTATIN CALCIUM) 80 Mg Tab, 1 TAB PO DAILY for HIGH CHOLESTEROL, #30 TAB 5 Refills 04/06/23 Clopidogrel Bisulfate (CLOPIDOGREL) 75 Mg Tab, 75 MG PO DAILY for S/P STENTS STOPPED 03/30/23, MG 04/06/23 Pantoprazole Sodium (PANTOPRAZOLE SODIUM) 40 Mg Inj, 40 MG PO DAILY, INJ 06/12/21 Trazodone Hcl (Trazodone Hcl) 100 Mg Tab, 1 TAB PO QPM 03/06/21 Topiramate (Topiramate) 25 Mg Cap, 100 MG PO BID 03/06/21 Dicyclomine Hcl (Dicyclomine Hcl) 10 Mg Cap, 10 MG PO PRN for CRAMPS 03/06/21 Methotrexate (Methotrexate) 2.5 Mg Tab, 12.5 MG PO QWEEKLY for ARTHRITIS 02/27/21 Alendronate Sodium (Alendronate Sodium) 70 Mg Tab, 1 TAB PO QWEEKLY for OSTEOARTHRITIS 02/27/21 Folic Acid (Folic Acid) 1 Mg Tab, 1 MG PO DAILY for SUPPLEMENT for 30 Days, MG 02/24/21 Cholecalciferol (VITAMIN D3) 2,000 Unit Tab, 2000 UNIT OR DAILY for SUPPLEMENT, TAB 02/24/21 Bupropion Hcl (Bupropion Hcl) 100 Mg Tab, 150 MG PO DAILY for ANXIETY for 30 Days, MG 02/24/21 Information Source: Patient Mode of Arrival: Wheelchair Location: Right Extremity Location: Ankle Timing: Minutes Prehospital treatment: None Severity: Moderate Able to Move Extremity: Yes Bear Weight: Limited Pain: Moderate Hand Dominance: Right Mechanism: Spontaneous Circumstances: Accident Onset of Symptoms: After Trauma Symptoms: Swelling, Pain DVT Risk Factors: NONE Associated signs and symptoms: Ankle pain Past Medical History PAST MEDICAL HISTORY: Anxiety, CAD, Cancer, High Lipids, Thyroid Surgical History: Appendectomy, Hernia Repair, Hysterectomy, PTCA, Tonsillectomy, Tubal Ligation [employer] History: Ovarian Cysts Family History Family History: Reviewed,noncontributory to illness, Unknown Social History Smoker: Quit Greater Than 1 Year, Cigarettes Alcohol: Occasionally Drugs: Marijuana Lives In: Home Constitutional: denies: chills, diaphoresis, fatigue, fever, malaise, sweats, weakness, others EENTM: denies: blurred vision, double vision, ear bleeding, ear discharge, ear drainage, ear pain, ear ringing, eye pain, eye redness, hearing loss, mouth pain, mouth swelling, nasal discharge, nose bleeding, nose congestion, nose pain, photophobia, tearing, throat pain, throat swelling, voice changes, others Respiratory: denies: cough, hemoptysis, orthopnea, SOB at rest, shortness of breath, SOB with excertion, stridor, wheezing, others Cardiovascular: denies: chest pain, dizzy spells, diaphoresis, Dyspnea on exertion, edema, irregular heart beat, left arm pain, lightheadedness, palpitations, PND, syncope, others Gastrointestinal: denies: abdomen distended, abdominal pain, blood streaked bowels, constipated, diarrhea, dysphagia, difficulty swallowing, hematemesis, melena, nausea, poor appetite, poor fluid intake, rectal bleeding, rectal pain, vomiting, others Genitourinary: denies: abnormal vagina bleeding, burning, dyspareunia, dysuria, flank pain, frequency, hematuria, incontinence, pain, , vagina discharge, urgency, others Neurological: denies: dizziness, fainting, headache, left sided numbness, left sided weakness, numbness, paresthesia, pre-existing deficit, right sided numbness, right sided weakness, seizure, speech problems, tingling, tremors, weakness, others Musculoskeletal: reports: others (Right ankle pain and swelling S/P fall); denies: back pain, gout, joint pain, joint swelling, muscle pain, muscle stiffness, neck pain Integumetry: denies: bruises, change in color, change in hair/nails, dryness, laceration, lesions, lumps, rash, wounds, others Allergic/Immunocompromised: denies: Difficulty Healing, Frequent Infections, Hives, Itching, others Hematologic/Lymphatic: denies: anemia, blood clots, easy bleeding, easy bruising, swollen glands, others Endocrine: denies: excessive hunger, excessive sweating, excessive thirst, excessive urination, flushing, intolerance to cold, intolerance to heat, unexplained weight gain, unexplained weight loss, others Psychiatric: denies: anxiety, bipolar disorder, depression, hopeless, panic disorder, schizophrenia, sleepless, suicidal, others All Other Systems: Reviewed and Negative Physical Exam Exam Comments Right ankle with noticeable deformity and swelling. Unable to dorsiflex the ankle due to pain. Vascular/Neurological: Radial pulses 2+, neurovascular sensation intact. Limited flexion and extension due from pain General Appearance: No Apparent Distress, Normal HEENT: Normal ENT Inspection, Pharynx Normal, TMs Normal Neck: Full Range of Motion, Non-Tender, Normal, Normal Inspection Respiratory: Chest Non-Tender, Lungs Clear, No Accessory Muscle Use, No Respiratory Distress, Normal Breath Sounds Cardiovascular: No Edema, No JVD, No Murmur, No Gallop, Normal Peripheral Pulses, Regular Rate/Rhythm Breast Exam: Deferred Gastrointestinal: No Organomegaly, Non Tender, No Pulsatile Mass, Normal Bowel Sounds, Soft Genitalia: Deferred Pelvic: Deferred Rectal: Deferred Extremities: No calf tenderness, Normal capillary refill, Normal inspection, Normal range of motion, Non-tender, No pedal edema Musculoskeletal : Apperance: Normal Neurologic: Alert, chairman II-XII nml as Tested, No Motor Deficits, Normal Affect, Normal Mood, No Sensory Deficits Cerebellar Function: Normal Reflexes: Normal Skin: Dry, Normal Color, Warm Lymphatic: No Adenopathy Was a procedure done? Was a procedure done?: No Differential Diagnosis EXT Differential Diagnosis: Fracture, Sprain, Dislocation X-Ray, Labs, Meds, VS Vital Signs Date Time Temp Pulse Resp B/P (MAP) Pulse Ox O2 Delivery O2 Flow Rate FiO2 08/14/25 11:40 97.9 68 20 132/75 (94) 97 97.9 08/14/25 11:37 68 20 132/75 08/14/25 10:44 97.9 60 16 148/82 (104) 97 97.9 08/14/25 10:44 60 16 98 Room Air 08/14/25 08:30 97.2 63 18 166/88 100 97.2 Lab Test 08/14/25 11:48 08/14/25 10:43 Range/Units White Blood Count 7.6 4.4-10.8 10^3/uL Red Blood Count 4.33 4.0-5.20 10^6/uL Hemoglobin 12.8 12.2-16.2 g/dL Hematocrit 39.3 36.0-46.0 % Mean Corpuscular Volume 91.0 80.0-100.0 fL Mean Corpuscular Hemoglobin 29.6 28.0-32.0 pg Mean Corpuscular Hemoglobin Concent 32.6 32.0-36.0 g/dL Red Cell Distribution Width 14.9 H 11.8-14.3 % Platelet Count 299 140-450 10^3/uL Mean Platelet Volume 8.3 6.9-10.8 fL Neutrophils (%) (Auto) 68.0 37.0-80.0 % Lymphocytes (%) (Auto) 18.3 10.0-50.0 % Monocytes (%) (Auto) 9.6 0.0-12.0 % Eosinophils (%) (Auto) 3.7 0.0-7.0 % Basophils (%) (Auto) 0.4 0.0-2.0 % Neutrophils # (Auto) 5.2 1.6-8.6 10 ^3/uL Lymphocytes # (Auto) 1.4 0.4-5.4 10 ^3/uL Monocytes # (Auto) 0.7 0-1.3 10 ^3/uL Eosinophils # (Auto) 0.3 0-0.8 10 ^3/uL Basophils # (Auto) 0 0-0.2 10 ^3/uL Nucleated Red Blood Cells 0.1 % Prothrombin Time 10.8 9.3-11.8 sec Prothrombin Time INR 1.02 0.9-1.15 Sodium Level 141 136-145 mmol/L Potassium Level 3.9 3.5-5.1 mmol/L Chloride Level 105 98-107 mmol/L Carbon Dioxide Level 28 20-31 mmol/L Anion Gap 8 5-15 Blood Urea Nitrogen 24 H 9-23 mg/dL Creatinine 1.02 0.550-1.02 mg/dL Glomerular Filtration Rate Calc 61 >90 mL/min BUN/Creatinine Ratio 23.5 H 10.0-20.0 Serum Glucose 82 74-106 mg/dL Calcium Level 9.1 8.7-10.4 mg/dL Troponin I High Sensitivity 6 </=34 ng/L B-Type Natriuretic Peptide 39.60 0-100 pg/mL Urine Color Light-yellow Yellow Urine Clarity Turbid H Clear Urine pH 6.5 5.0-9.0 Urine Specific Reedy 1.023 1.001-1.035 Urine Protein 1+ H Negative Urine Ketones Negative Negative Urine Blood 2+ H Negative /uL Urine Nitrite 1+ H Negative Urine Bilirubin Negative Negative Urine Urobilinogen Normal Negative mg/dL Urine Leukocyte Esterase 3+ Negative /uL Urine RBC 60 0 - 4 /hpf Urine Microscopic WBC 281 H 0-5 /HPF Urine Squamous Epithelial Cells Few <5 /hpf Urine Bacteria Few H None Seen /hpf Urine Hyaline Casts Few 0 - 2 /lpf Urine Yeast (Budding) Many None Seen /hpf Urine Glucose Normal Normal mg/dL Urine Opiates Screen Neg NEGATIVE Urine Fentanyl Screen Neg NEGATIVE Urine Barbiturates Screen Neg NEGATIVE Urine Phencyclidine Screen Neg NEGATIVE Urine Amphetamines Screen Neg NEGATIVE Urine Benzodiazepines Screen Neg NEGATIVE Urine Cocaine Screen Neg NEGATIVE Urine Cannabinoids Screen Pos NEGATIVE Current Medications Medications (Trade) Dose Ordered Sig/Errol Route Start Time Stop Time Status Last Admin Morphine Sulfate 4 mg ONCE ONCE IM 08/14/25 11:45 08/14/25 11:46 DC 08/14/25 11:37 PATIENT: NIEVES MACKAYCT: [id number]: [id number] : 1960 LOC: ER ROOM / BED: / AGE / SEX: 65 / F ADM STATUS: REG ER SERVICE 4 ORDERING PHYSICIAN: NINA KIRBY NP PROCEDURE(s): RANKL - R ANKLE 3 VIEW REASON: fall injury ORDER NUMBER(s): [id number], ACCESSION NUMBER(s): [id number] CLINICAL INDICATION: fall injury TECHNIQUE: XY R ANKLE 3 VIEW COMPARISON: XY R FOOT 3 VIEW XRAY on DOS: 05/31/23 FINDINGS/IMPRESSION: : Moderately displaced fracture of the distal fibula and medial malleolus. There is mild widening of the ankle mortise. Severe diffuse soft-tissue swelling and edema. ATED BY: TC MALONEY MD DICTATED DATE/TIME: 12/15/25 0947 SIGNED BY: TC MALONEY MD SIGNED DATE/TIME: 08/14/25946 CC: X-Ray, Labs, Meds, VS Comment Patient arrives alert and oriented, ABC's intact, afebrile, vital signs stable, saturating well in room air This is a patient presenting after an acute right ankle injury from tripping over a shoe several hours before this visit, while taking aspirin, with findings of right ankle deformity, swelling, pain with dorsiflexion, and preserved neurovascular status. The patient did not hit their head and is not experiencing vomiting. Orders of prothrombin time, troponin, UA, BNP, CBC Imaging: CT head without contrast chest x-ray and right ankle x-ray EKG was ordered Presentation and physical findings (deformity, swelling, snap heard at injury, inability to dorsiflex, and instability) are consistent with an acute right ankle fracture. Neurovascular status is intact. FINDINGS/IMPRESSION: : Moderately displaced fracture of the distal fibula and medial malleolus. There is mild widening of the ankle mortise. Severe diffuse soft-tissue swelling and edema. Patient does not currently demonstrate complications of fracture such as compartment syndrome, arterial or nerve injury. 10:45 consulted with the ortho The patient will be admitted for surgery. Will need echo with the cardio clearance Patient verbalized understanding of the above and is awaiting further evaluation by the admitting service. Time of 1ST Reevaluation: 10:30 Reevaluation 1ST: Improved Patient Education/Counseling: Diagnosis, Treatment Family Education/Counseling: Diagnosis, Treatment Departure 1 Departure Time of Disposition: 10:49 Impression: Primary Impression: Fracture of distal fibula Qualified Codes: S82.831A - Other fracture of upper and lower end of right fibula, initial encounter for closed fracture Additional Impression: Fractured medial malleolus Qualified Codes: S82.51XA - Displaced fracture of medial malleolus of right tibia, initial encounter for closed fracture Disposition: ADMITTED INPATIENT Condition: Serious Critical Care Note Critical Care Time?: No Stability Stability form required: No Heart Score Heart Score: Heart Score Response (Comments) Value History N/A 0 EKG N/A 0 Age N/A 0 Risk Factors N/A 0 Troponin N/A 0 Total 0 I personally scribed for NINA KIRBY NP ([email or web address]) on 08/14/25 at 10:10. Electronically submitted by Andreas Washington ([employer]). I personally scribed for NINA KIRBY NP ([email or web address]) on 08/14/25 at 10:53. Electronically submitted by Andreas Washington ([employer]). NNIA KIRBY NP Aug 14, 2025 10:10
[2025-08-14] MEDS ORDERED: MORPHINE SULFATE 4 MG/ML SYR/VIAL IV ONE (11:00)
--- NOTE | 2025-08-14 11:26 | DVH ---
CHEST RADIOGRAPH INDICATION: r/o pna TECHNIQUE: Single frontal view of the chest was obtained COMPARISON: XR CHEST 1 VIEW on DOS: 07/21/25, XY CHEST PORTABLE on DOS: 03/24/25, XY CHEST PORTABLE on DOS: 10/15/24, XY CHEST PORTABLE on DOS: 07/05/24, CHEST PORTABLE on DOS: 06/11/21 FINDINGS: Lines and Tubes: None Lungs: No focal consolidation. Pleura: No effusion. No pneumothorax. Cardiomediastinal contours: Unremarkable Bones: No acute osseous abnormality. IMPRESSION: 1. No acute cardiopulmonary disease.
[2025-08-14] MEDS: MORPHINE SULFATE 4 MG/ML SYR/VIAL IM ONE (11:37)
--- NOTE | 2025-08-14 11:53 | DVH ---
EXAM: CT HEAD WITHOUT CONTRAST INDICATION: R/o head trauma s/p fall. pt on thinners TECHNIQUE: CT of the head without intravenous contrast. Radiation Dose : 1. Head: CT Dose: CTDI volume is 51.11 mGy. Dose-length product is 905.09 mGy*cm The dose indicators for CT are the volume Computed Tomography (CT) Dose Index (CTDIvol) and the Dose Length Product (DLP), and are measured in units of mGy and mGy-cm, respectively. These indicators are not patient dose, but values generated from the CT scanner acquisition factors. The report includes radiation exposure data for exposures received during this examination. COMPARISON: ANGIO HEAD WO AND WITH on DOS: 06/14/21 FINDINGS: Motion artifact degrades fine detail. The cerebral parenchyma appears to be normal configuration and attenuation. The ventricles, cisterns, and sulci appear age-appropriate. There is no evidence for acute territorial infarct, hemorrhage, or mass effect. The orbits are normal. The visualized paranasal sinuses and mastoid air cells are clear. The soft tissues and osseous structures appear within normal limits. IMPRESSION: 1. No acute traumatic intracranial abnormality. Radiation optimization: All CT scans at this facility use at least one of these dose optimization techniques: automated exposure control mA and/or kV adjustment per patient size (includes targeted exams where dose is matched to clinical indication) or iterative reconstruction.
[2025-08-14 12:14] LABS: Hematocrit 39.3 % (36.0-46.0); Hemoglobin 12.8 g/dL (12.2-16.2); Mean Corpuscular Hemoglobin 29.6 pg (28.0-32.0); Mean Corpuscular Volume 91.0 fL (80.0-100.0); Nucleated Red Blood Cells % 0.1 %
[2025-08-14 12:27] LABS: INR 1.02 (0.9-1.15); Prothrombin Time 10.8 sec (9.3-11.8)
[2025-08-14 12:36] LABS: Chloride 105 mmol/L (98-107); Potassium 3.9 mmol/L (3.5-5.1); Sodium 141 mmol/L (136-145)
[2025-08-14 12:37] LABS: Anion Gap 8 (5-15); Carbon Dioxide 28 mmol/L (20-31)
[2025-08-14 12:38] LABS: Calcium 9.1 mg/dL (8.7-10.4)
[2025-08-14 12:41] LABS: Urine Budding Yeast MANY /hpf (None Seen); Urine Protein, UAD 1+ (Negative)
[2025-08-14 12:43] LABS: BUN/Creatinine Ratio 23.5 (10.0-20.0); Glucose 82 mg/dL (74-106)
[2025-08-14 12:46] LABS: Blood Urea Nitrogen 24 mg/dL (9-23)
--- NOTE | 2025-08-14 13:10 | DVHHPRES ---
History of Present Illness Resident Creating Document: CORIN VARGAS RESIDENT History of Present Illness Fozia Teresa, a 65 year old female with past medical history includes anxiety, CAD, cancer, hyperlipidemia, and thyroid disease; surgical history includes appendectomy, hernia repair, hysterectomy, PTCA, tonsillectomy, and tubal ligation. Allergies include sulfa drugs, sulfa antibiotics, and hydromorphone. presents for evaluation of right ankle pain and swelling after tripping over a shoe and falling in the bedroom several hours prior to arrival. The patient reports hearing a snap at the time of injury, followed by pain and inability to dorsiflex the ankle, though toe movement is preserved. The patient denies head trauma, vomiting, fever, chills, nausea, or redness around the ankle and is unable to bear weight. PMHx: hypothyroidism, osteoporosis, PUD/GERD, restless leg syndrome CAD, insomnia, multimodal pain management, osteoarthritis, allergic rhinitis, generalized anxiety disorder depression, dyslipidemia, rheumatoid arthritis PSHx: Appendectomy, Hernia Repair, Hysterectomy, PTCA, Tonsillectomy, Tubal Ligation Family history: Reviewed, noncontributory to illness, Unknown Social history: The individual quit smoking cigarettes over a year ago, consumes alcohol occasionally, uses marijuana, and currently resides at home. Review of Systems Constitutional: Yes: Weakness, Malaise; No: Fever, Chills, Sweats, Other Eyes: No: Pain, Vision change, Conjunctivae inflammation, Eyelid inflammation, Other, Redness ENT: No: Ear pain, Ear discharge, Nose pain, Nose discharge, Nose congestion, Mouth pain, Mouth swelling, Throat pain, Throat swelling, Other Respiratory: No: Cough, Dry, Shortness of breath, SOB with excertion, Wheezing, Hemoptysis, Pleuritic Pain, Sputum, Wheezing, Other Cardiovascular: No: Chest Pain, Palpitations, Orthopnea, Paroxysmal Noc. Dyspnea, Edema, Lt Headedness, Other Gastrointestinal: No: Nausea, Vomiting, Abdominal Pain, Diarrhea, Constipation, Melena, Hematochezia, Other Genitourinary: Dysuria, Frequency; No Incontinence, No Hematuria, No Retention, No Other Musculoskeletal: No: other, neck pain, shoulder pain, arm pain, back pain, hand pain, leg pain, foot pain Skin: No: Rash, Lesions, Jaundice, Bruising, Other Neurological: Weakness; No: Numbness, Incoordination, Change in speech, Confusion, Seizures, Other Allergies: Coded Allergies: Sulfa Drugs (Verified Allergy, Intermediate, RASH, 04/06/23) Sulfa Antibiotics (Unverified Allergy, Unknown, 04/06/23) Hydromorphone (Verified Adverse Reaction, Intermediate, ITCHING, 04/06/23) Exam Vital Signs Vital Signs Date Time Temp Pulse Resp B/P (MAP) Pulse Ox O2 Delivery O2 Flow Rate FiO2 08/14/25 11:40 97.9 68 20 132/75 (94) 97 97.9 08/14/25 10:44 Room Air General Appearance: Alert, Oriented X3, Cooperative, mild distress HEENT: Atraumatic, PERRLA, EOMI, Mucous membr. moist/pink Respiratory: Clear to auscultation, Normal air movement, Other (in RA) Cardiovascular: Regular rate, Normal S1, Normal S2, No murmurs Abdominal: Normal bowel sounds, Soft, No tenderness, No hepatospenomegaly, No masses Extremities: No clubbing, No cyanosis, Normal pulses, Other (tenderness, swelling but no neurovascular compromise on the affected ankle) Skin: No rashes, No breakdown, No significant lesion Neuro: Normal speech, Strength at 5/5 X4 ext, Normal tone, Sensation intact, Cranial nerves 3-12 NL, Reflexes 2+, Other (gait not tested. pain on planting foot. ) Psych/Mental Status: Mental status NL, Mood NL Labs/Xrays Labs Test 08/14/25 11:48 08/14/25 10:43 Range/Units White Blood Count 7.6 4.4-10.8 10^3/uL Red Blood Count 4.33 4.0-5.20 10^6/uL Hemoglobin 12.8 12.2-16.2 g/dL Hematocrit 39.3 36.0-46.0 % Mean Corpuscular Volume 91.0 80.0-100.0 fL Mean Corpuscular Hemoglobin 29.6 28.0-32.0 pg Mean Corpuscular Hemoglobin Concent 32.6 32.0-36.0 g/dL Red Cell Distribution Width 14.9 H 11.8-14.3 % Platelet Count 299 140-450 10^3/uL Mean Platelet Volume 8.3 6.9-10.8 fL Neutrophils (%) (Auto) 68.0 37.0-80.0 % Lymphocytes (%) (Auto) 18.3 10.0-50.0 % Monocytes (%) (Auto) 9.6 0.0-12.0 % Eosinophils (%) (Auto) 3.7 0.0-7.0 % Basophils (%) (Auto) 0.4 0.0-2.0 % Neutrophils # (Auto) 5.2 1.6-8.6 10 ^3/uL Lymphocytes # (Auto) 1.4 0.4-5.4 10 ^3/uL Monocytes # (Auto) 0.7 0-1.3 10 ^3/uL Eosinophils # (Auto) 0.3 0-0.8 10 ^3/uL Basophils # (Auto) 0 0-0.2 10 ^3/uL Nucleated Red Blood Cells 0.1 % Prothrombin Time 10.8 9.3-11.8 sec Prothrombin Time INR 1.02 0.9-1.15 Sodium Level 141 136-145 mmol/L Potassium Level 3.9 3.5-5.1 mmol/L Chloride Level 105 98-107 mmol/L Carbon Dioxide Level 28 20-31 mmol/L Anion Gap 8 5-15 Blood Urea Nitrogen 24 H 9-23 mg/dL Creatinine 1.02 0.550-1.02 mg/dL Glomerular Filtration Rate Calc 61 >90 mL/min BUN/Creatinine Ratio 23.5 H 10.0-20.0 Serum Glucose 82 74-106 mg/dL Calcium Level 9.1 8.7-10.4 mg/dL Troponin I High Sensitivity 6 </=34 ng/L Urine Color Light-yellow Yellow Urine Clarity Turbid H Clear Urine pH 6.5 5.0-9.0 Urine Specific [place] 1.023 1.001-1.035 Urine Protein 1+ H Negative Urine Ketones Negative Negative Urine Blood 2+ H Negative /uL Urine Nitrite 1+ H Negative Urine Bilirubin Negative Negative Urine Urobilinogen Normal Negative mg/dL Urine Leukocyte Esterase 3+ Negative /uL Urine RBC 60 0 - 4 /hpf Urine Microscopic WBC 281 H 0-5 /HPF Urine Squamous Epithelial Cells Few <5 /hpf Urine Bacteria Few H None Seen /hpf Urine Hyaline Casts Few 0 - 2 /lpf Urine Yeast (Budding) Many None Seen /hpf Urine Glucose Normal Normal mg/dL SEPSIS Sepsis Screen Date sepsis recognized/suspect: Aug 14, 2025 Time Sepsis recognized/suspect: 08 Recent Procedure: No On Antibiotic Therapy: No Respiratory Rate >20: No Heart Rate >90: No Temp<36 C (96.8 F) or >38.3 C: No SBP <90 or MAP <65 mmHG: No New Acute Mental Status Change: No Is the patient on CPAP, BIPAP,: No Physician Orders R Ankle 3 View (08/14/25 09:15) Chest Xray 1 View (08/14/25 10:42) Electrocardigram (08/14/25 10:42) Head Without Contrast (08/14/25 10:42) B-Type Natriuretic Peptide (08/14/25 10:42) Admit (08/14/25 13:07) Allergies (08/14/25 13:07) Code Status (08/14/25 13:07) Hydrocodone-Acet 5/325mg Tab ([place]umford 5/32 (08/14/25 13:15) Ondansetron Hcl (Zofran) (08/14/25 13:15) Docusate Sodium Capsule (Colace Capsule) (08/14/25 13:15) Complete Blood Count (08/15/25 04:00) Comprehensive Metabolic Panel (08/15/25 04:00) Npo (Nothing By Mouth) Diet (08/14/25 Lunch) Pt Request For Service (08/14/25 13:07) Echo 2d Mode Cardiac Dop (08/14/25 13:07) Carotid Duplx W Color Dop (08/14/25 13:07) Condition: Serious (08/14/25 13:07) Acetaminophen Tablet (Tylenol Tablet) (08/14/25 13:15) Morphine Sulfate Injection (08/14/25 13:15) Sequential Compression Device (08/14/25 ) Nitroglycerin Sublingual (Ntrostat Subli (08/14/25 13:15) Morphine Sulfate Injection (08/14/25 13:15) Oxygen By Nasal Cannula (08/14/25 13:07) Stat Ekg For Chest Pain (08/14/25 13:07) Notify Md Of Changes From Base (08/14/25 13:07) Hunter Guide For 24 Hours (08/14/25 13:07) Emergency Dysrhythmia Protocol (08/14/25 13:07) Rhythm Strips Once Every Shift (08/14/25 13:07) Vital Signs Date Time Temp Pulse Resp B/P (MAP) Pulse Ox O2 Delivery O2 Flow Rate FiO2 08/14/25 11:40 97.9 68 20 132/75 (94) 97 97.9 08/14/25 11:37 68 20 132/75 08/14/25 10:44 97.9 60 16 148/82 (104) 97 97.9 08/14/25 10:44 60 16 98 Room Air 08/14/25 08:30 97.2 63 18 166/88 100 97.2 Laboratory Tests Test 08/14/25 11:48 White Blood Count 7.6 10^3/uL (4.4-10.8) Medications Medications Dose Ordered Sig/Errol Route Start Time Stop Time Status Last Admin Dose Admin Morphine Sulfate 4 mg ONCE ONCE IM 08/14/25 11:45 08/14/25 11:46 DC 08/14/25 11:37 4 MG Assessment/Plan Assessment/Plan #right ankle fracture, secondary to falls: Moderately displaced fracture of the distal fibula and medial malleolus. There is mild widening of the ankle mortise. consulted Orthopedics, continue vitamin-D and calcium supplement #mechanical fall: Acute stroke, carotid stenosis, ruled out, orthostatic to check, physical therapy and other injury management #acute uncomplicated UTI: urinalysis indicative, Urine culture, blood culture and IV Zosyn to continue, trend CBC #multimodal pain management, osteoarthritis, #allergic rhinitis: As needed nasal fluticasone #generalized anxiety disorder depression, #dyslipidemia: Atorvastatin/ ezetimibe continue. #rheumatoid arthritis: Leflunomide, methotrexate hold for now #hypothyroidism: Continue home dose of levothyroxine 75mcgpa #PUD/GERD: Ppi dietary modification, counseling. #insomnia: Trazodone at bedtime #significant past surgical history of Appendectomy, Hernia Repair, Hysterectomy, PTCA, Tonsillectomy, Tubal Ligation PUD prophylaxis: protonix 40mg DVT prophylaxis: Levonox 40mg/brisk movement. l Barriers to discharge: Medical diagnosis and management in progress. PCP: Dr. Hahn, pain specialist Dr. King Specialist Relevant To Admission: orthopedics Case discussed with Dr. Hillman. Code Status: Full Code. Discussion for goals of care and care plan needed total 33 minutes bedside. Plan discussed with: Patient My Orders Orders - CORIN VARGAS RESIDENT Procedure Category Date Status Time Admit ADMIT 08/14/25 Verified 13:07 Allergies KENISHA 08/14/25 Verified 13:07 Code Status CODE 08/14/25 Verified 13:07 Hydrocodone-Acet PHA 08/14/25 Verified 5/325mg Tab ([place]umford 13:15 Ondansetron Hcl PHA 08/14/25 Verified (Zofran) 13:15 Docusate Sodium PHA 08/14/25 Verified Capsule (Colace 13:15 Complete Blood Count LAB 08/15/25 Verified 04:00 Comprehensive LAB 08/15/25 Verified Metabolic Panel 04:00 Npo (Nothing By DIET 08/14/25 Verified Mouth) Diet Lunch Pt Request For Service PT 08/14/25 Verified 13:07 Echo 2d Mode Cardiac US 08/14/25 Verified DOP 13:07 Carotid Duplx W Color US 08/14/25 Verified DOP 13:07 Condition: Serious KENISHA 08/14/25 Verified 13:07 Acetaminophen Tablet PHA 08/14/25 Verified (Tylenol Tablet) 13:15 Morphine Sulfate PHA 08/14/25 Verified Injection 13:15 Sequential KENISHA 08/14/25 Verified Compression Device Nitroglycerin PHA 08/14/25 Verified Sublingual (Ntrostat 13:15 Morphine Sulfate PHA 08/14/25 Verified Injection 13:15 Oxygen By Nasal RT 08/14/25 Verified Cannula 13:07 Stat Ekg For Chest [facility] 08/14/25 Verified Pain 13:07 Notify Md Of Changes [facility] 08/14/25 Verified From Base 13:07 Hunter Guide For [facility] 08/14/25 Verified 24 Hours 13:07 Emergency Dysrhythmia [facility] 08/14/25 Verified Protocol 13:07 Rhythm Strips Once [facility] 08/14/25 Verified Every Shift 13:07 Date of Service: Aug 14, 2025 Billing Provider: AMANDA TINOCO MD Common Visit Codes: [id number] INP/OBS CARE (HIGH) Secondary Visit Codes: [id number] CARE PLAN 30 MINUTES CORIN VARGAS RESIDENT Aug 14, 2025 13:10
[2025-08-14] MEDS ORDERED: NITROGLYCERIN 0.4 MG SL TAB SL PRN (13:15)
[2025-08-14] MEDS ORDERED: ONDANSETRON HCL 4 MG/2 ML VIAL IV PRN (13:15)
[2025-08-14] MEDS ORDERED: ACETAMINOPHEN 325 MG TAB PO PRN (13:15)
[2025-08-14] MEDS ORDERED: DOCUSATE SOD 100 MG CAP PO PRN (13:15)
--- NOTE | 2025-08-14 13:57 | DVH ---
Carotid Duplex Date: 08/14/2025 01:18 PM CLINICAL HISTORY: rule out carotid stenosis COMPARISON: ECHO 2D MODE CARDIAC DOP on DOS: 03/25/25, CT ANGIO NECK W WO CONTRAST on DOS: 06/14/21 TECHNIQUE: Duplex Doppler evaluation of the extracranial carotid and vertebral arteries including color Doppler and spectral/pulsed waveform analysis was performed. FINDINGS: Right velocities and ratios within normal limits. Left ICA/CCA ratio equals 2. 50-69% stenosis involving the left internal carotid artery. Absent left vertebral artery flow is noted. IMPRESSION: No hemodynamically significant stenosis noted in the right carotid system. Left ICA/CCA ratio equals 2. 50-69% stenosis involving the left internal carotid artery. Absent left vertebral artery flow is noted. Reference: Radiology 2003; 229:[id number]
[2025-08-14 15:15] VITALS: PULSE 59; RESP 16; O2SAT 98
[2025-08-14] MEDS: MORPHINE SULFATE 4 MG/ML SYR/VIAL ONE (16:00)
[2025-08-14] MEDS: MORPHINE SULFATE INJ 2 MG/ml SYRG IV PRN ×2 (16:02→20:15)
[2025-08-14 16:20] VITALS: BP 122/98; PULSE 88; RESP 18; TEMP 98.1; O2SAT 96
[2025-08-14] MEDS ORDERED: ARIP2TAB48 PO (16:44)
[2025-08-14 17:00] VITALS: BP 150/81; PULSE 69; TEMP 98.1; O2SAT 97
[2025-08-14] MEDS: ENOXAPARIN SOD 40 MG/0.4 ML SYRINGE SC ONE (18:26)
[2025-08-14] MEDS: PANTOPRAZOLE 40 MG/10 ML VIAL INJ IV ONE (18:26)
--- NOTE | 2025-08-14 19:27 | DVHINCON2 ---
Consult Note Consult Consult Note Orthopedic Inpatient Consultation Note Reason for Consult: Right ankle fracture following ground-level fall History of Present Illness The patient is a 65-year-old female who was evaluated in the Emergency Department after a ground-level fall resulting in immediate right ankle pain, swelling, and inability to bear weight. Initial radiographs obtained in the ER demonstrated a right ankle fracture involving both the medial and lateral malleoli. Due to the unstable nature of the injury and significant pain, the patient was admitted for surgical evaluation, pain control, and further management. On inpatient evaluation today, the patient continues to report right ankle pain. She denies numbness, tingling, or other neurologic complaints. There are no open wounds. Physical Examination Right Ankle: Skin intact with no open lesions or fracture blisters Notable edema and swelling around the ankle No erythema or signs of infection Tenderness to palpation over medial and lateral malleoli Pain with gentle range of motion Patient able to wiggle toes Sensation grossly intact Distal pulses palpable, foot warm and well perfused Compartments soft Overall, the patient is grossly neurovascularly intact distally. Imaging X-rays of the right ankle demonstrate: Bimalleolar ankle fracture involving the medial and lateral malleoli Medial clear space widening consistent with ankle mortise instability Findings concerning for talar dome instability, indicating an unstable ankle fracture pattern Assessment Unstable closed right bimalleolar ankle fracture Status post ground-level fall Plan The imaging findings, diagnosis, and treatment options were discussed in detail with the patient. Treatment Options Discussed: 1. Non-surgical management, including immobilization and prolonged nonweight- bearing, with associated risks of malunion, nonunion, chronic pain, instability, post-traumatic arthritis, and functional limitation. 2. Surgical management, including open reduction and internal fixation (ORIF) of the right ankle, to restore anatomic alignment and ankle stability. Given the unstable nature of the fracture, surgical management was strongly recommended. Surgical Plan: Open reduction and internal fixation of the right ankle, utilizing plates and screws Possible use of a fibular intramedullary nail, depending on intraoperative findings Surgeon: Dr. Epps Estimated surgery time: Approximately 0700 Risks, Benefits, and Alternatives Discussed: The patient was counseled extensively regarding the risks, benefits, and alternatives of surgery, including but not limited to: Infection Bleeding Damage to nerves or blood vessels Hardware failure or irritation Nonunion or malunion Post-traumatic arthritis Need for additional surgery Blood clots Anesthesia-related risks The benefits of surgery include improved alignment, ankle stability, pain relief, and improved long-term function. The patient demonstrated understanding and elected to proceed with surgical intervention. Orders / Coordination of Care Patient to remain NPO after midnight Surgical consent completed for ORIF of the right ankle Plan discussed with the bedside nursing staff Pain management per Hospitalist All patient questions were answered satisfactorily Plan discussed with: Patient, Other (bedside Nurse) Visit Coding Surgery Date of Service if different f: Aug 14, 2025 Billing Provider: ABDIRIZAK AIKEN Surgery Visit Codes: [id number] - INP CONSULT <55 MIN ABDIRIZAK AIKEN Aug 14, 2025 19:27
[2025-08-14 20:20] LABS: Amphetamine Screen, Urine Neg (NEGATIVE)
[2025-08-14 20:21] LABS: Benzodiazephine Screen, Urine Neg (NEGATIVE)
[2025-08-14 20:28] LABS: Barbiturate Scree,Urine Neg (NEGATIVE); Cannabinoid Screen, Urine Pos (NEGATIVE); Phencyclidine Screen, Urine Neg (NEGATIVE)
[2025-08-14 20:37] LABS: Cocaine Screen, Urine Neg (NEGATIVE)
[2025-08-14 20:53] LABS: Opiate Scree,Urine Neg (NEGATIVE)
[2025-08-14 21:15] VITALS: BP 144/66; PULSE 62; RESP 18; TEMP 98.4; O2SAT 99
[2025-08-14] MEDS: PIPERACILLIN-TAZOB 3.375GM 100 ML IV SCH (21:51)
[2025-08-14] MEDS: ATORVASTATIN 20 MG TAB PO SCH (21:52)
[2025-08-15] VITALS (7 sets, daily range): BP systolic 129–153; BP diastolic 77–87; PULSE 66–87; RESP 16–18; TEMP 97.8–98.5; O2SAT 95–98
[2025-08-15] MEDS: MORPHINE SULFATE 4 MG/ML SYR/VIAL IV PRN (00:49)
[2025-08-15] MEDS: LEVOTHYROXINE SODIUM 25 MCG TAB PO SCH (06:20)
[2025-08-15 06:29] LABS: Hematocrit 34.9 % (36.0-46.0); Hemoglobin 11.5 g/dL (12.2-16.2); Mean Corpuscular Hemoglobin 29.7 pg (28.0-32.0); Mean Corpuscular Volume 89.6 fL (80.0-100.0); Nucleated Red Blood Cells % 0.1 %
[2025-08-15 06:41] LABS: Alanine Aminotransferase 22 U/L (7-40); Alkaline Phosphatase 84 U/L (46-116); Anion Gap 9 (5-15); BUN/Creatinine Ratio 21.0 (10.0-20.0); Blood Urea Nitrogen 17 mg/dL (9-23); Carbon Dioxide 29 mmol/L (20-31); Chloride 102 mmol/L (98-107); Potassium 4.0 mmol/L (3.5-5.1); Sodium 140 mmol/L (136-145); Total Protein 6.0 g/dL (5.7-8.2)
[2025-08-15 06:42] LABS: Albumin 3.7 g/dL (3.2-4.8); Calcium 8.7 mg/dL (8.7-10.4); Glucose 117 mg/dL (74-106)
[2025-08-15 06:43] LABS: Bilirubin, Total 0.5 mg/dL (0.2-1.0)
[2025-08-15 07:55] LABS: COVID19 ANTIGEN SOFIA FIA NEGATIVE (NEGATIVE)
[2025-08-15] MEDS: MORPHINE SULFATE 4 MG/ML SYR/VIAL ONE (09:28)
[2025-08-15] MEDS: ENOXAPARIN SOD 40 MG/0.4 ML SYRINGE SC SCH (09:41)
[2025-08-15] MEDS: PANTOPRAZOLE 40 MG/10 ML VIAL INJ IV SCH (09:41)
[2025-08-15] MEDS: CHOLECALCIFEROL (VITD3) 1,000UNIT=25mCg TAB PO SCH (09:43)
--- NOTE | 2025-08-15 12:49 | DVHPN2 ---
Changes from previous H/P or p: No Changes Eyes: No Pain, No Vision change, No Conjunctivae inflammation, No Eyelid inflammation, No Other, No Redness ENT: No Ear pain, No Ear discharge, No Nose pain, No Nose discharge, No Nose congestion, No Mouth pain, No Mouth swelling, No Throat pain, No Throat swelling, No Other Cardiovascular: No Chest Pain, No Palpitations, No Orthopnea, No Paroxysmal Noc. Dyspnea, No Edema, No Lt Headedness, No Other Respiratory: No Cough, No Dry, No Shortness of breath, No SOB with excertion, No Wheezing, No Hemoptysis, No Pleuritic Pain, No Sputum, No Other Gastrointestinal: No Nausea, No Vomiting, No Abdominal Pain, No Diarrhea, No Constipation, No Melena, No Hematochezia, No Other Genitourinary: Dysuria, Frequency; No Incontinence, No Hematuria, No Retention, No Other Musculoskeletal: No other, No neck pain, No shoulder pain, No arm pain, No back pain, No hand pain, No leg pain, No foot pain Skin: No Rash, No Lesions, No Jaundice, No Bruising, No Other Objective Vitals Vital Signs Date Time Temp Pulse Resp B/P (MAP) Pulse Ox O2 Delivery O2 Flow Rate FiO2 08/15/25 09:43 66 16 143/81 08/15/25 08:39 97.8 95 97.8 08/15/25 08:00 Room Air* 0 21 Intake/Output Intake and Output 08/15/25 07:00 Intake Total 750 ml Balance 750 ml Intake Oral 750 ml # Voids 3 Medications Current Medications Medications Dose Ordered Sig/Errol Route Start Time Stop Time Status Last Admin Dose Admin Acetaminophen/ Hydrocodone Bitart 1 tab Q4HP PRN PO 08/14/25 13:15 Ondansetron HCl 4 mg Q4HP PRN IV 08/14/25 13:15 Docusate Sodium 100 mg BIDPRN PRN PO 08/14/25 13:15 Acetaminophen 650 mg Q6HP PRN PO 08/14/25 13:15 Nitroglycerin 0.4 mg Q5MINP PRN SL 08/14/25 13:15 Morphine Sulfate 2 mg Q30M PRN IV 08/14/25 13:15 08/14/25 16:02 2 MG Piperacillin Sod/ Tazobactam Sod 100 ml @ 25 mls/hr Q8HR IV 08/14/25 22:00 08/15/25 06:20 25 MLS/HR Cholecalciferol 2,000 unit DAILY PO 08/15/25 10:00 08/15/25 09:43 2,000 UNIT Levothyroxine Sodium 75 mcg QAM@0600 PO 08/15/25 06:00 08/15/25 06:20 75 MCG Pantoprazole Sodium 40 mg DAILY IV 08/15/25 10:00 08/15/25 09:41 40 MG Trazodone HCl 100 mg HS PO 08/14/25 22:00 08/14/25 21:51 100 MG Atorvastatin Calcium 20 mg HS PO 08/14/25 22:00 08/14/25 21:52 20 MG Enoxaparin Sodium 40 mg DAILY SC 08/15/25 10:00 08/15/25 09:41 40 MG Bupropion HCl 75 mg BID@07,19 PO 08/14/25 19:00 08/15/25 06:20 75 MG Morphine Sulfate 2 mg Q4HPRN PRN IV 08/15/25 00:30 08/15/25 09:43 2 MG Laboratory Results Laboratory Tests 08/15/25 05:28 Chemistry Test 08/15/25 05:28 Albumin 3.7 g/dL (3.2-4.8) Calcium Level 8.7 mg/dL (8.7-10.4) Total Protein 6.0 g/dL (5.7-8.2) LFT Test 08/15/25 05:28 Alanine Aminotransferase (ALT) 22 U/L (7-40) Alkaline Phosphatase 84 U/L (46-116) Aspartate Amino Transferase (AST) 25 U/L (13-40) Total Bilirubin 0.5 mg/dL (0.2-1.0) Urinalysis Test 08/14/25 10:43 Urine Color Light-yellow (Yellow) Urine Clarity Turbid (Clear) H Urine pH 6.5 (5.0-9.0) Urine Specific [place] 1.023 (1.001-1.035) Urine Protein 1+ (Negative) H Urine Ketones Negative (Negative) Urine Blood 2+ /uL (Negative) H Urine Nitrite 1+ (Negative) H Urine Bilirubin Negative (Negative) Urine Urobilinogen Normal mg/dL (Negative) Urine Leukocyte Esterase 3+ /uL (Negative) Urine RBC 60 /hpf (0 - 4) Urine Microscopic WBC 281 /HPF (0-5) H Urine Squamous Epithelial Cells Few /hpf (<5) Urine Bacteria Few /hpf (None Seen) H Urine Hyaline Casts Few /lpf (0 - 2) Urine Yeast (Budding) Many /hpf (None Seen) Urine Glucose Normal mg/dL (Normal) Microbiology Microbiology Date/Time Source Procedure Growth Status 08/14/25 10:43 Voided Urine Urine Culture - Preliminary Resulted Labs and/or images reviewed: Labs reviewed by me, Image(s) reviewed by me Assessment/Plan Assessment/Plan Unstable closed right bimalleolar ankle fracture: Consult by ortho Dr. Mensah appreciated, planning for surgery Mechanical fall UTI Hypercholesterolemia Rheumatoid arterial disease Hypothyroidism Insomnia: Trazodone Time spent 50 minutes Advanced care planning time 20 minutes Patient is full code Plan discussed with: Patient Date of Service: Aug 15, 2025 Billing Provider: BIPIN SOLOMON MD Common Visit Codes: [id number] INP/OBS CARE(HIGH) BIPIN SOLOMON MD Aug 15, 2025 12:49
[2025-08-16] VITALS (10 sets, daily range): BP systolic 117–145; BP diastolic 66–89; PULSE 72–96; RESP 12–20; TEMP 97.1–98.6; O2SAT 92–100
--- NOTE | 2025-08-16 08:16 | DVHPN2 ---
Reviewed: Care Plan, H&P, Labs, Medications, Previous Orders, Radiology Changes from previous H/P or p: No Changes Eyes: No Pain, No Vision change, No Conjunctivae inflammation, No Eyelid inflammation, No Other, No Redness ENT: No Ear pain, No Ear discharge, No Nose pain, No Nose discharge, No Nose congestion, No Mouth pain, No Mouth swelling, No Throat pain, No Throat swelling, No Other Cardiovascular: No Chest Pain, No Palpitations, No Orthopnea, No Paroxysmal Noc. Dyspnea, No Edema, No Lt Headedness, No Other Respiratory: No Cough, No Dry, No Shortness of breath, No SOB with excertion, No Wheezing, No Hemoptysis, No Pleuritic Pain, No Sputum, No Other Gastrointestinal: No Nausea, No Vomiting, No Abdominal Pain, No Diarrhea, No Constipation, No Melena, No Hematochezia, No Other Genitourinary: Dysuria, Frequency; No Incontinence, No Hematuria, No Retention, No Other Musculoskeletal: No other, No neck pain, No shoulder pain, No arm pain, No back pain, No hand pain, No leg pain, No foot pain Skin: No Rash, No Lesions, No Jaundice, No Bruising, No Other Objective Vitals Vital Signs Date Time Temp Pulse Resp B/P (MAP) Pulse Ox O2 Delivery O2 Flow Rate FiO2 08/16/25 06:14 69 17 146/83 08/16/25 05:00 98.2 94 98.2 08/15/25 20:00 Room Air* 0 21 Intake/Output Intake and Output 08/16/25 07:00 Intake Total 850 ml Balance 850 ml Intake Oral 750 ml IV Total 100 ml # Voids 11 Medications Current Medications Medications Dose Ordered Sig/Errol Route Start Time Stop Time Status Last Admin Dose Admin Acetaminophen/ Hydrocodone Bitart 1 tab Q4HP PRN PO 08/14/25 13:15 Ondansetron HCl 4 mg Q4HP PRN IV 08/14/25 13:15 Docusate Sodium 100 mg BIDPRN PRN PO 08/14/25 13:15 Acetaminophen 650 mg Q6HP PRN PO 08/14/25 13:15 Nitroglycerin 0.4 mg Q5MINP PRN SL 08/14/25 13:15 Morphine Sulfate 2 mg Q30M PRN IV 08/14/25 13:15 08/14/25 16:02 2 MG Piperacillin Sod/ Tazobactam Sod 100 ml @ 25 mls/hr Q8HR IV 08/14/25 22:00 08/16/25 06:39 25 MLS/HR Cholecalciferol 2,000 unit DAILY PO 08/15/25 10:00 08/15/25 09:43 2,000 UNIT Levothyroxine Sodium 75 mcg QAM@0600 PO 08/15/25 06:00 08/16/25 06:40 75 MCG Pantoprazole Sodium 40 mg DAILY IV 08/15/25 10:00 08/15/25 09:41 40 MG Trazodone HCl 100 mg HS PO 08/14/25 22:00 08/15/25 22:46 100 MG Atorvastatin Calcium 20 mg HS PO 08/14/25 22:00 08/15/25 22:00 20 MG Enoxaparin Sodium 40 mg DAILY SC 08/15/25 10:00 08/15/25 09:41 40 MG Bupropion HCl 75 mg BID@07,19 PO 08/14/25 19:00 08/16/25 06:39 75 MG Morphine Sulfate 2 mg Q4HPRN PRN IV 08/15/25 00:30 08/16/25 05:44 2 MG Laboratory Results Laboratory Tests 08/15/25 05:28 Urinalysis Test 08/14/25 10:43 Urine Color Light-yellow (Yellow) Urine Clarity Turbid (Clear) H Urine pH 6.5 (5.0-9.0) Urine Specific [place] 1.023 (1.001-1.035) Urine Protein 1+ (Negative) H Urine Ketones Negative (Negative) Urine Blood 2+ /uL (Negative) H Urine Nitrite 1+ (Negative) H Urine Bilirubin Negative (Negative) Urine Urobilinogen Normal mg/dL (Negative) Urine Leukocyte Esterase 3+ /uL (Negative) Urine RBC 60 /hpf (0 - 4) Urine Microscopic WBC 281 /HPF (0-5) H Urine Squamous Epithelial Cells Few /hpf (<5) Urine Bacteria Few /hpf (None Seen) H Urine Hyaline Casts Few /lpf (0 - 2) Urine Yeast (Budding) Many /hpf (None Seen) Urine Glucose Normal mg/dL (Normal) Microbiology Microbiology Date/Time Source Procedure Growth Status 08/14/25 17:05 Blood Blood Culture - Preliminary NO GROWTH AFTER 24 HOURS OF INCUBATION. Resulted 08/14/25 10:43 Voided Urine Urine Culture - Preliminary Resulted Labs and/or images reviewed: Labs reviewed by me, Image(s) reviewed by me Assessment/Plan Assessment/Plan Unstable closed right bimalleolar ankle fracture: Consult by ortho Dr. Mensah appreciated, planning for ORIF today Mechanical fall by tripping on a suit case UTI: Blood cultures negative, urine cultures growing Gram-negative rods, continue Zosyn Hypercholesterolemia Rheumatoid arthritis Hypothyroidism Insomnia: Trazodone Time spent 46 minutes Plan discussed with: Patient Date of Service: Aug 16, 2025 Billing Provider: BIPIN SOLOMON MD Common Visit Codes: [id number] INP/OBS CARE(HIGH) BIPIN SOLOMON MD Aug 16, 2025 08:16
[2025-08-16] MEDS: LIDOCAINE W/ EPINEPHRINE 1% 20ML VIAL ONE (10:39)
[2025-08-16] MEDS: BUPIVACAINE HCL 0.25% P/F 10 ML VIAL ONE (10:40)
[2025-08-16] MEDS ORDERED: METOCLOPRAMIDE HCL 5MG/ml INJ 2ml VIAL IV PRN (10:45)
[2025-08-16] MEDS ORDERED: fentaNYL CITRATE 100 MCG/2 ML VL IV PRN (10:45)
[2025-08-16] MEDS ORDERED: hydrALAZINE HCL 20 MG/ML VL IV PRN (10:45)
[2025-08-16] MEDS: KETOROLAC TROMETH 30 MG/ML 1ML VIAL IV ONE (10:45)
[2025-08-16] MEDS ORDERED: ONDANSETRON HCL 4 MG/2 ML VIAL IV PRN (10:45)
[2025-08-16] MEDS: ACETAMINOPHEN IV 1000 MG/100ML (10MG/ML) IV ONE (10:45)
[2025-08-16] MEDS ORDERED: MORPHINE SULFATE 4 MG/ML SYR/VIAL IV PRN (10:47)
[2025-08-16] MEDS: BUPIVACAINE 0.25% INJ 50ML VIAL ONE ×2 (10:50→12:28)
[2025-08-16] MEDS ORDERED: ONDANSETRON HCL 4 MG/2 ML VIAL ONE (10:58)
[2025-08-16] MEDS ORDERED: MIDAZOLAM HCL 2MG/2ML 2ml VIAL (1mg/ml) ONE (10:58)
[2025-08-16] MEDS ORDERED: fentaNYL CITRATE 100 MCG/2 ML VL ONE (10:58)
[2025-08-16] MEDS ORDERED: LIDOCAINE 2% (LOCAL ANESTH.) PF 5ml SDV ONE (10:58)
[2025-08-16] MEDS ORDERED: METOCLOPRAMIDE HCL 5MG/ml INJ 2ml VIAL ONE (10:58)
[2025-08-16] MEDS ORDERED: PROPOFOL 10 MG/ML 20 ML IV ONE (10:59)
[2025-08-16] MEDS: ceFAZolin 2 GM/D5W50ml 50 ML IV ONE (12:06)
--- NOTE | 2025-08-16 12:06 | DVHPN2 ---
Progress Note Date Seen: Aug 15, 2025 Medical Necessity Reason Pt with a Central, PICC or Fol: No Subjective Patient reports: No new complaints (patient is ready for surgery tomorrow; getting workup for syncope) Objective vital signs Vital Sign Date Time Temp Pulse Resp B/P (MAP) Pulse Ox O2 Delivery O2 Flow Rate FiO2 08/16/25 10:01 72 18 136/83 08/16/25 09:01 98.1 97 98.1 08/16/25 08:00 Room Air* 0 21 Total Intake and Output 08/15/25 08/15/25 08/16/25 15:00 23:00 07:00 Intake Total 850 ml 0 ml Balance 850 ml 0 ml medications Current Medications Medications Dose Ordered Sig/Errol Route Start Time Stop Time Status Last Admin Dose Admin Acetaminophen/ Hydrocodone Bitart 1 tab Q4HP PRN PO 08/14/25 13:15 Ondansetron HCl 4 mg Q4HP PRN IV 08/14/25 13:15 Docusate Sodium 100 mg BIDPRN PRN PO 08/14/25 13:15 Acetaminophen 650 mg Q6HP PRN PO 08/14/25 13:15 Nitroglycerin 0.4 mg Q5MINP PRN SL 08/14/25 13:15 Morphine Sulfate 2 mg Q30M PRN IV 08/14/25 13:15 08/14/25 16:02 2 MG Piperacillin Sod/ Tazobactam Sod 100 ml @ 25 mls/hr Q8HR IV 08/14/25 22:00 08/16/25 06:39 25 MLS/HR Cholecalciferol 2,000 unit DAILY PO 08/15/25 10:00 08/15/25 09:43 2,000 UNIT Levothyroxine Sodium 75 mcg QAM@0600 PO 08/15/25 06:00 08/16/25 06:40 75 MCG Pantoprazole Sodium 40 mg DAILY IV 08/15/25 10:00 08/16/25 09:59 40 MG Trazodone HCl 100 mg HS PO 08/14/25 22:00 08/15/25 22:46 100 MG Atorvastatin Calcium 20 mg HS PO 08/14/25 22:00 08/15/25 22:00 20 MG Enoxaparin Sodium 40 mg DAILY SC 08/15/25 10:00 08/15/25 09:41 40 MG Bupropion HCl 75 mg BID@07,19 PO 08/14/25 19:00 08/16/25 06:39 75 MG Morphine Sulfate 2 mg Q4HPRN PRN IV 08/15/25 00:30 08/16/25 10:01 2 MG Examination: GENERAL:Normal, MSK:Abnormal laboratory and microbiology Laboratory Tests 08/15/25 05:28 Test 08/15/25 05:28 Range/Units Serum Glucose 117 H 74-106 mg/dL Microbiology Date/Time Source Procedure Growth Status 08/14/25 17:05 Blood Blood Culture - Preliminary NO GROWTH AFTER 24 HOURS OF INCUBATION. Resulted 08/14/25 10:43 Voided Urine Urine Culture - Preliminary Resulted Problem List/Assessment/Plan Problem List/Assessment/Plan 65 yo F sp mechanical trip and fall with displaced right bimalleolar ankle fracture 1. I had a long and thorough discussion held with patient regarding her condition. Questions for patient answered. Risks benefits options and alternatives reviewed in depth. Risks include but not exclusive to bleeding infection nerve injury hardware failure nonunion malunion chronic pain blood clots cardiac and pulmonary complications chronic pain need for further surgery amputation and . Patient understands the risks and wishes to proceed with surgery. 2. Plan for open reduction internal fixation of right ankle fracture 3. NPO/IVF 4. pain control 5. healing time is 3-6 months; no weight x 6 weeks - discussed with patient Plan discussed with: Patient ALEISHA ANDERSON MD Aug 16, 2025 12:06
--- NOTE | 2025-08-16 12:11 | DVHOP2 ---
Operative Report - 2 Report Details Date: 08/16/25 Preop Diagnosis: Right ankle bimalleolar fracture Postop Diagnosis: Right ankle bimalleolar fracture Surgeon: Caleb Epps MD Anesthesiologist: Ofe RENDON Anesthesia: General Implant: Flower fibula nail with screws Consent: The patient was informed of the risks and benefits of the procedure. These include but are not limited to complications of anesthesia, postoperative infection, incomplete relief of symptoms, recurrence of symptoms, damage to blood vessels, nerves and tendons, deep venous thrombosis, pulmonary embolism and possible need for repeat surgery in the future. Estimated Blood Loss: 5 cc Name of Procedure Performed 1. Open reduction internal fixation of right ankle bimalleolar fracture 2. intraop fluoroscopy Procedure Details Procedure Details: The patient was placed supine on the operating table. A bump was placed under the ipsilateral hip to maintain neutral rotation. A well-padded thigh tourniquet was applied but not inflated until exsanguination. The right lower extremity was prepped and draped in the usual sterile fashion. A small longitudinal incision was made over the distal fibula, centered at the fracture site. Dissection was carried down to the level of the bone, taking care to protect the superficial peroneal nerve and surrounding soft tissues. The fracture was identified and reduced under direct visualization and fluoroscopic guidance. A guidewire was inserted into the medullary canal of the distal fibula and advanced proximally. The canal was prepared with sequential reaming as needed. An appropriately sized intramedullary fibula nail was inserted across the fracture site, and reduction was confirmed fluoroscopically. Proximal and distal locking screws were placed percutaneously to secure the nail and provide rotational and axial stability. Syndesmotic screw placed under fluoro. A longitudinal incision was made over the medial malleolus. The fracture was exposed, hematoma evacuated, and the fracture reduced anatomically. Fixation was achieved using a cannulated screws. Reduction and hardware placement were confirmed with fluoroscopy. After bony fixation, the syndesmosis was stressed under fluoroscopy. The wounds were thoroughly irrigated with saline. Hemostasis was achieved. The incisions were closed in layers with absorbable sutures for the deep tissues and nylon for the skin. Sterile dressings were applied, and a well-padded posterior splint was placed. Postop plan: Non-weight bearing to the right lower extremity Elevation and ice Analgesia as needed Follow-up in 10-14 days for wound check and suture removal at [facility] ortho clinic Postoperative radiographs to confirm alignment and hardware position; placement into boot at that appt Condition Good Disposition Still a Patient CALEB EPPS MD Aug 16, 2025 12:11
[2025-08-16] MEDS ORDERED: SODIUM CHLORIDE LOCK 10 ML ONE ×2 (12:16→13:00)
[2025-08-16] MEDS ORDERED: LIDOCAINE W/ EPINEPHRINE 1% 20ML VIAL ONE (12:36)
[2025-08-16] MEDS ORDERED: MORPHINE SULF PF 5 MG/10 ML VIAL ONE (12:39)
--- NOTE | 2025-08-16 13:33 | DVH ---
C-ARM FLUOROSCOPY: PROCEDURE: ORIF right ankle FLUOROSCOPY TIME: 20 sec DAP: 0.44 mgy FINDINGS: Spot intraoperative C arm radiographs demonstrating . IMPRESSION: Please refer to surgical report for detailed findings.
[2025-08-16] MEDS ORDERED: ceFAZolin 1GM/50ML 50 ML IV SCH (14:00)
[2025-08-16] MEDS: ceFAZolin 1GM/50ML 50 ML IV SCH (21:46)
[2025-08-17] MEDS: HYDROcodone-ACET 5/325MG TAB PO PRN (00:26)
[2025-08-17 01:00] VITALS: BP 114/71; PULSE 81; RESP 17; TEMP 97.8; O2SAT 95
[2025-08-17 05:00] VITALS: BP 110/71; PULSE 76; RESP 17; TEMP 97.9; O2SAT 94
[2025-08-17 08:00] VITALS: PULSE 77; O2SAT 97
--- NOTE | 2025-08-17 08:47 | DVHPN2 ---
Reviewed: Care Plan, H&P, Labs, Medications, Previous Orders, Radiology Changes from previous H/P or p: No Changes Eyes: No Pain, No Vision change, No Conjunctivae inflammation, No Eyelid inflammation, No Other, No Redness ENT: No Ear pain, No Ear discharge, No Nose pain, No Nose discharge, No Nose congestion, No Mouth pain, No Mouth swelling, No Throat pain, No Throat swelling, No Other Cardiovascular: No Chest Pain, No Palpitations, No Orthopnea, No Paroxysmal Noc. Dyspnea, No Edema, No Lt Headedness, No Other Respiratory: No Cough, No Dry, No Shortness of breath, No SOB with excertion, No Wheezing, No Hemoptysis, No Pleuritic Pain, No Sputum, No Other Gastrointestinal: No Nausea, No Vomiting, No Abdominal Pain, No Diarrhea, No Constipation, No Melena, No Hematochezia, No Other Genitourinary: Dysuria, Frequency; No Incontinence, No Hematuria, No Retention, No Other Musculoskeletal: No other, No neck pain, No shoulder pain, No arm pain, No back pain, No hand pain, No leg pain, No foot pain Skin: No Rash, No Lesions, No Jaundice, No Bruising, No Other Objective Vitals Vital Signs Date Time Temp Pulse Resp B/P (MAP) Pulse Ox O2 Delivery O2 Flow Rate FiO2 08/17/25 05:00 97.9 76 17 110/71 (84) 94 97.9 08/16/25 20:00 Room Air* 0 21 Intake/Output Intake and Output 08/17/25 07:00 Intake Total 795 ml Balance 795 ml Intake Oral 495 ml IV Total 300 ml # Voids 5 Medications Current Medications Medications Dose Ordered Sig/Errol Route Start Time Stop Time Status Last Admin Dose Admin Acetaminophen/ Hydrocodone Bitart 1 tab Q4HP PRN PO 08/14/25 13:15 08/17/25 00:26 1 TAB Ondansetron HCl 4 mg Q4HP PRN IV 08/14/25 13:15 Docusate Sodium 100 mg BIDPRN PRN PO 08/14/25 13:15 Acetaminophen 650 mg Q6HP PRN PO 08/14/25 13:15 Nitroglycerin 0.4 mg Q5MINP PRN SL 08/14/25 13:15 Morphine Sulfate 2 mg Q30M PRN IV 08/14/25 13:15 08/14/25 16:02 2 MG Piperacillin Sod/ Tazobactam Sod 100 ml @ 25 mls/hr Q8HR IV 08/14/25 22:00 08/17/25 06:03 25 MLS/HR Cholecalciferol 2,000 unit DAILY PO 08/15/25 10:00 08/15/25 09:43 2,000 UNIT Levothyroxine Sodium 75 mcg QAM@0600 PO 08/15/25 06:00 08/17/25 06:03 75 MCG Pantoprazole Sodium 40 mg DAILY IV 08/15/25 10:00 08/16/25 09:59 40 MG Trazodone HCl 100 mg HS PO 08/14/25 22:00 08/16/25 21:46 100 MG Atorvastatin Calcium 20 mg HS PO 08/14/25 22:00 08/16/25 21:46 20 MG Enoxaparin Sodium 40 mg DAILY SC 08/15/25 10:00 08/15/25 09:41 40 MG Bupropion HCl 75 mg BID@07,19 PO 08/14/25 19:00 08/17/25 06:03 75 MG Morphine Sulfate 2 mg Q4HPRN PRN IV 08/15/25 00:30 08/17/25 02:33 2 MG Cefazolin Sodium 50 ml @ 100 mls/hr Q8H IV 08/16/25 20:00 08/17/25 12:29 08/17/25 04:33 100 MLS/HR Laboratory Results Laboratory Tests 08/15/25 05:28 Urinalysis Test 08/14/25 10:43 Urine Color Light-yellow (Yellow) Urine Clarity Turbid (Clear) H Urine pH 6.5 (5.0-9.0) Urine Specific [place] 1.023 (1.001-1.035) Urine Protein 1+ (Negative) H Urine Ketones Negative (Negative) Urine Blood 2+ /uL (Negative) H Urine Nitrite 1+ (Negative) H Urine Bilirubin Negative (Negative) Urine Urobilinogen Normal mg/dL (Negative) Urine Leukocyte Esterase 3+ /uL (Negative) Urine RBC 60 /hpf (0 - 4) Urine Microscopic WBC 281 /HPF (0-5) H Urine Squamous Epithelial Cells Few /hpf (<5) Urine Bacteria Few /hpf (None Seen) H Urine Hyaline Casts Few /lpf (0 - 2) Urine Yeast (Budding) Many /hpf (None Seen) Urine Glucose Normal mg/dL (Normal) Microbiology Microbiology Date/Time Source Procedure Growth Status 08/14/25 17:05 Blood Blood Culture - Preliminary NO GROWTH AFTER 48 HOURS OF INCUBATION. Resulted 08/14/25 10:43 Voided Urine Urine Culture - Final Escherichia coli Complete Labs and/or images reviewed: Labs reviewed by me, Image(s) reviewed by me Assessment/Plan Assessment/Plan Unstable closed right bimalleolar ankle fracture: Status post Open reduction internal fixation of right ankle bimalleolar fracture by Dr Epps on 08-16-25 Mechanical fall by tripping on a suit case UTI: Blood cultures negative, urine cultures growing E coli sensitive to Rocephin, DC Zosyn start Rocephin Hypercholesterolemia Rheumatoid arthritis Hypothyroidism Insomnia: Trazodone Time spent 46 minutes Plan discussed with: Patient My Orders Orders - BIPIN SOLOMON MD Procedure Category Date Status Time C Arm Fluoroscopy Up XY 08/16/25 Resulted To 60min 12:55 R Ankle 2 View Xray XY 08/16/25 Resulted 12:56 Date of Service: Aug 17, 2025 Billing Provider: BIPIN SOLOMON MD Common Visit Codes: [id number] INP/OBS CARE(HIGH) BIPNI SOLOMON MD Aug 17, 2025 08:47
[2025-08-17 09:00] VITALS: BP 137/75; PULSE 77; RESP 16; TEMP 98.2; O2SAT 94
--- NOTE | 2025-08-17 09:06 | ECG ---
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
[2025-08-17] MEDS ORDERED: HYDR-4902 PO (09:13)
[2025-08-17] MEDS ORDERED: CIPR-173 PO (09:17)
--- NOTE | 2025-08-17 09:20 | DVHDS2 ---
Discharge Summary Date of Admission Aug 14, 2025 at 13:07 Date of Discharge: Aug 17, 2025 Admitting Diagnosis Right ankle fracture Wounds: ORIF right ankle fracture Labs/Diagnostic Data: Laboratory Results Test 08/15/25 05:28 08/14/25 11:48 08/14/25 10:43 08/14/25 06:43 White Blood Count 6.4 10^3/uL (4.4-10.8) Red Blood Count 3.89 10^6/uL (4.0-5.20) Hemoglobin 11.5 g/dL (12.2-16.2) Hematocrit 34.9 % (36.0-46.0) Mean Corpuscular Volume 89.6 fL (80.0-100.0) Mean Corpuscular Hemoglobin 29.7 pg (28.0-32.0) Mean Corpuscular Hemoglobin Concent 33.1 g/dL (32.0-36.0) Red Cell Distribution Width 14.8 % (11.8-14.3) Platelet Count 286 10^3/uL (140-450) Mean Platelet Volume 8.4 fL (6.9-10.8) Neutrophils (%) (Auto) 66.8 % (37.0-80.0) Lymphocytes (%) (Auto) 17.9 % (10.0-50.0) Monocytes (%) (Auto) 13.9 % (0.0-12.0) Eosinophils (%) (Auto) 1.1 % (0.0-7.0) Basophils (%) (Auto) 0.3 % (0.0-2.0) Neutrophils # (Auto) 4.2 10 ^3/uL (1.6-8.6) Lymphocytes # (Auto) 1.1 10 ^3/uL (0.4-5.4) Monocytes # (Auto) 0.9 10 ^3/uL (0-1.3) Eosinophils # (Auto) 0.1 10 ^3/uL (0-0.8) Basophils # (Auto) 0 10 ^3/uL (0-0.2) Nucleated Red Blood Cells 0.1 % Sodium Level 140 mmol/L (136-145) Potassium Level 4.0 mmol/L (3.5-5.1) Chloride Level 102 mmol/L (98-107) Carbon Dioxide Level 29 mmol/L (20-31) Anion Gap 9 (5-15) Blood Urea Nitrogen 17 mg/dL (9-23) Creatinine 0.81 mg/dL (0.550-1.02) Glomerular Filtration Rate Calc 81 mL/min (>90) BUN/Creatinine Ratio 21.0 (10.0-20.0) Serum Glucose 117 mg/dL (74-106) Calcium Level 8.7 mg/dL (8.7-10.4) Total Bilirubin 0.5 mg/dL (0.2-1.0) Aspartate Amino Transferase (AST) 25 U/L (13-40) Alanine Aminotransferase (ALT) 22 U/L (7-40) Alkaline Phosphatase 84 U/L (46-116) Total Protein 6.0 g/dL (5.7-8.2) Albumin 3.7 g/dL (3.2-4.8) Prothrombin Time 10.8 sec (9.3-11.8) Prothrombin Time INR 1.02 (0.9-1.15) Troponin I High Sensitivity 6 ng/L (</=34) B-Type Natriuretic Peptide 39.60 pg/mL (0-100) Urine Color Light-yellow (Yellow) Urine Clarity Turbid (Clear) Urine pH 6.5 (5.0-9.0) Urine Specific [place] 1.023 (1.001-1.035) Urine Protein 1+ (Negative) Urine Ketones Negative (Negative) Urine Blood 2+ /uL (Negative) Urine Nitrite 1+ (Negative) Urine Bilirubin Negative (Negative) Urine Urobilinogen Normal mg/dL (Negative) Urine Leukocyte Esterase 3+ /uL (Negative) Urine RBC 60 /hpf (0 - 4) Urine Microscopic WBC 281 /HPF (0-5) Urine Squamous Epithelial Cells Few /hpf (<5) Urine Bacteria Few /hpf (None Seen) Urine Hyaline Casts Few /lpf (0 - 2) Urine Yeast (Budding) Many /hpf (None Seen) Urine Glucose Normal mg/dL (Normal) Urine Opiates Screen Neg (NEGATIVE) Urine Fentanyl Screen Neg (NEGATIVE) Urine Barbiturates Screen Neg (NEGATIVE) Urine Phencyclidine Screen Neg (NEGATIVE) Urine Amphetamines Screen Neg (NEGATIVE) Urine Benzodiazepines Screen Neg (NEGATIVE) Urine Cocaine Screen Neg (NEGATIVE) Urine Cannabinoids Screen Pos (NEGATIVE) Influenza Type A Antigen Negative (Negative) Influenza Type B Antigen Negative (Negative) SARS-CoV-2 Antigen (Rapid) Negative (NEGATIVE) Other Laboratory Tests 08/15/25 05:28 Brief Hx & Hospital Course: 65-year-old female tripped on a suitcase fell and sustained right ankle fracture underwent ORIF by Dr. Epps 08/16/2025. Postop course uneventful treated with the pain medications physical therapy UTI treated with the Rocephin blood cultures negative discharged home on Potrero and Cipro she will follow up with the ortho in two weeks Consults/Reason for consult Orthopedic Dr Epps Operations or Procedures ORIF right ankle fracture Condition at Discharge: Fair Final Diagnosis/Problems List Unstable closed right bimalleolar ankle fracture: Status post Open reduction internal fixation of right ankle bimalleolar fracture by Dr Epps on 08-16-25 Mechanical fall by tripping on a suit case UTI: Blood cultures negative, urine cultures growing E coli sensitive to Rocephin, DC Zosyn start Rocephin Hypercholesterolemia Rheumatoid arthritis Hypothyroidism Insomnia: Trazodone Discharge Disposition: Home Discharge Instruct/Medications Diet: Regular Activity: Light activity Follow Up/Referral: Follow up with the primary Dr Follow up with the ortho in two weeks Resume all previous home medications Medications: Potrero Transmitted to pharmacy Scheduled Alendronate Sodium (Alendronate Sodium), 1 TAB PO QWEEKLY, (Reported) Atorvastatin Calcium (Atorvastatin Calcium), 1 TAB PO DAILY, (Reported) Bupropion Hcl (Bupropion Hcl), 150 MG PO DAILY, (Reported) Cephalexin Monohydrate (Cephalexin), 1 CAP PO QID Cholecalciferol (Vitamin D3), 2,000 UNIT OR DAILY, (Reported) Ciprofloxacin Hcl (Cipro), 1 TAB PO BID Clopidogrel Bisulfate (Clopidogrel), 75 MG PO DAILY, (Reported) Ezetimibe (Zetia), 1 TAB PO DAILY, (Reported) Famotidine (Pepcid Tablet), 1 TAB PO BID Folic Acid (Folic Acid), 1 MG PO DAILY, (Reported) Levothyroxine Sodium (Levothyroxine Sodium), 50 MCG PO QAM, (Reported) Methotrexate (Methotrexate), 12.5 MG PO QWEEKLY, (Reported) Oxycodone W/ Acetaminophen (Apap/Oxycodone), 1 TAB PO TID, (Reported) Pantoprazole Sodium (Pantoprazole Sodium), 40 MG PO DAILY, (Reported) Pregabalin (Lyrica), 1 CAP PO BID, (Reported) Ranolazine (Ranolazine ER), 500 MG PO BID, (Reported) Sertraline Hcl (Zoloft), 1 TAB PO DAILY, (Reported) Topiramate (Topiramate), 100 MG PO BID, (Reported) Trazodone Hcl (Trazodone Hcl), 1 TAB PO QPM, (Reported) Scheduled PRN Dicyclomine Hcl (Dicyclomine Hcl), 10 MG PO for CRAMPS, (Reported) Hydrocodone-Acetaminophen (Hydrocodone Bitartrate/AC 5-325 mg), 1 TAB PO QID PRN Ondansetron Odt 4MG Tab (Zofran Po), 1 TAB PO Q8HPRN PRN Miscellaneous Medications Aripiprazole (Aripiprazole), 1 TAB PO, (Reported) 39 (Time taken for discharge summary 39 minutes) Discharge Statement: "Patient was advised to return to the ER or call 911 if any headaches, dizziness, shortness of breath, chest pain, abdominal pain, bleeding, fevers, or worsening of medical condition. Patient was counseled about treatment plan, medications, possible side effects, patientverbalized understanding. All questions were answered to the best of my ability. This discharge took greater then 30 minutes in planning, reviewing documentation, counseling the patient, and discussing with other team members." ASSESSMENT ASSESSMENT Hospital Course Improved Assessment Unstable closed right bimalleolar ankle fracture: Status post Open reduction internal fixation of right ankle bimalleolar fracture by Dr Epps on 08-16-25 Mechanical fall by tripping on a suit case UTI: Blood cultures negative, urine cultures growing E coli sensitive to Rocephin, DC Zosyn start Rocephin Hypercholesterolemia Rheumatoid arthritis Hypothyroidism Insomnia: Trazodone Date of Service: Aug 17, 2025 Billing Provider: BIPIN SOLOMON MD Common Visit Codes: [id number] DISCH DAY >30min BIPIN SOLOMON MD Aug 17, 2025 09:20
[2025-08-17 13:00] VITALS: BP 135/73; PULSE 73; RESP 16; TEMP 98.1; O2SAT 97
== END 2025-08-17 18:44 | disposition left against medical advice (07) | DRG 313 ==
LOC: ER 08:28 → OVERFLOW 13:07 → CENTRAL 23:39
PROVIDERS: ADMIT Family Medicine; ATTEND Family Medicine
PROC: 0QSJ04Z Reposition Right Fibula with Internal Fixation Device, Open Approach (ICD-10-PCS; principal; 2025-08-16 12:06)
DX: S82.841A Displaced bimalleolar fracture of right lower leg, initial encounter for closed fracture (principal); B96.20 Unspecified Escherichia coli [E. coli] as the cause of diseases classified elsewhere; N39.0 Urinary tract infection, site not specified; E03.9 Hypothyroidism, unspecified; M06.9 Rheumatoid arthritis, unspecified; F32.A Depression, unspecified; E78.00 Pure hypercholesterolemia, unspecified; Z20.822 Contact with and (suspected) exposure to COVID-19; Z53.29 Procedure and treatment not carried out because of patient's decision for other reasons; G47.00 Insomnia, unspecified; F41.1 Generalized anxiety disorder; J30.9 Allergic rhinitis, unspecified; W01.0XXA Fall on same level from slipping, tripping and stumbling without subsequent striking against object, initial encounter; K21.9 Gastro-esophageal reflux disease without esophagitis; I25.10 Atherosclerotic heart disease of native coronary artery without angina pectoris; Z88.5 Allergy status to narcotic agent; Z88.2 Allergy status to sulfonamides; Z90.710 Acquired absence of both cervix and uterus; Z87.891 Personal history of nicotine dependence; Z98.51 Tubal ligation status; Z90.49 Acquired absence of other specified parts of digestive tract; Z98.61 Coronary angioplasty status; Z87.11 Personal history of peptic ulcer disease; Y93.89 Activity, other specified; Y92.092 Bedroom in other non-institutional residence as the place of occurrence of the external cause; Y99.8 Other external cause status
CPT/HCPCS: 36415; 70450; 71045; 73600; 73610; 76000; 80048; 80053; 80307; 81001; 83880; 84484; 85025; 85610; 86850; 86900; 86901; 87040; 87086; 87088; 87186; 87426; 87804; 93005; 93886; 96372; 96374; 97110; 97163; 97530; G0378; J1100; J2003; J2250; J2405; J2470; J2543; J2704; J3490